=== PATIENT | male | born 1955 | race Caucasian/White ===

== ENCOUNTER 2019-08-08 09:01 | Outpatient (CLI) | payer MEDICARE, OTHER, SELFPAY ==
--- NOTE | 2019-08-08 09:57 | XR_ITS ---
WS: [id number] ABDOMEN 1 VIEW(S) HISTORY: KIDNEY STONE COMPARISON: 07/07/2019 Normal bowel gas pattern. No suspicious calcifications or masses. Osteopenia. Prior vertebroplasties at T11. Catheter projects over the LEFT abdomen. Extensive vascular calcifications. XR/XR KUB [id number] IMPRESSION: No renal or ureteral calcifications identified.
== END 2019-08-08 09:02 | disposition home or self-care (01) ==
LOC: RADWPI 09:07 → RAD 09:52
PROVIDERS: Family Provider Family Medicine; PCP Family Medicine; Visit Provider Urology
DX: N20.0 Calculus of kidney (principal)
CPT/HCPCS: 74018; 80053; 81001; 87077; 87086; 87186

== ENCOUNTER 2019-09-06 09:03 | Outpatient (CLI) | payer MEDICARE, OTHER, SELFPAY ==
--- NOTE | 2019-09-06 09:30 | US_ITS ---
WS: [id number] RENAL ULTRASOUND HISTORY: HYDROURETERONEPHROSIS COMPARISON: 07/07/2019 TECHNIQUE: 2-D and color Doppler imaging of the kidney submitted. Right kidney: 14.3 cm x 9.4 cm x 9.3 cm. Very minimal fluid distention of the renal pelvis measuring up to 2.1 cm. No gross hydronephrosis. No rmal size kidney. Left kidney: 13.0 cm x 6.0 cm x 5.9 cm. LEFT kidney is difficult to visualize but no hydronephrosis is evident. Aorta: Normal. Urinary Bladder: Nondistended urinary bladder. US/US renal BI* [id number] IMPRESSION: 1. Very minimal fluid distended RIGHT renal pelvis. Improved since 07/07/2019. 2. No left-sided hydronephrosis.
== END 2019-09-06 09:04 | disposition home or self-care (01) ==
LOC: RAD 09:07
PROVIDERS: PCP Family Medicine; Visit Provider Urology
DX: N13.30 Unspecified hydronephrosis (principal); N39.0 Urinary tract infection, site not specified
CPT/HCPCS: 76770; 80053; 81001

== ENCOUNTER → 2019-10-06 13:16 | Outpatient (BNVA) | payer MEDICARE, OTHER, SELFPAY | PROVIDERS: PCP Family Medicine; Visit Provider Urology | DX: N39.0 Urinary tract infection, site not specified (principal) | CPT/HCPCS: 80053; 81001 ==

== ENCOUNTER 2019-10-10 06:00 | Outpatient (RCR) | payer MEDICARE, OTHER, SELFPAY | END 2019-10-25 23:59 | disposition home or self-care (01) | LOC: WPT 06:00 | PROVIDERS: PCP Family Medicine; Referring Provider Nurse Practitioner Family; Visit Provider Nurse Practitioner Family | DX: R53.1 Weakness (principal) | CPT/HCPCS: 97110; 97112; 97116; 97163 ==

== ENCOUNTER 2019-10-26 06:00 | Outpatient (RCR) | payer MEDICARE, OTHER, SELFPAY | END 2019-11-25 23:59 | disposition home or self-care (01) | LOC: WPT 06:00 | PROVIDERS: PCP Family Medicine; Referring Provider Nurse Practitioner Family; Visit Provider Nurse Practitioner Family | DX: R53.1 Weakness (principal); I50.30 Unspecified diastolic (congestive) heart failure; E11.43 Type 2 diabetes mellitus with diabetic autonomic (poly)neuropathy; Z79.4 Long term (current) use of insulin | CPT/HCPCS: 97110; 97116; 97530 ==

== ENCOUNTER → 2019-11-09 16:27 | Outpatient (BNVA) | payer MEDICARE, OTHER, SELFPAY | PROVIDERS: PCP Family Medicine; Visit Provider Urology | DX: N39.0 Urinary tract infection, site not specified (principal); N13.30 Unspecified hydronephrosis | CPT/HCPCS: 80053; 81001 ==

== ENCOUNTER 2019-11-26 06:00 | Outpatient (RCR) | payer MEDICARE, OTHER, SELFPAY | END 2019-12-26 23:59 | disposition home or self-care (01) | LOC: WPT 06:00 | PROVIDERS: PCP Family Medicine; Referring Provider Nurse Practitioner Family; Visit Provider Nurse Practitioner Family | DX: R53.1 Weakness (principal) | CPT/HCPCS: 97110; 97116 ==

== ENCOUNTER → 2019-12-20 16:36 | Outpatient (BNVA) | payer MEDICARE, OTHER, SELFPAY | PROVIDERS: PCP Family Medicine; Visit Provider Urology | DX: N39.0 Urinary tract infection, site not specified (principal) | CPT/HCPCS: 80053; 81001; 87077; 87086; 87186 ==

== ENCOUNTER 2019-12-27 06:00 | Outpatient (RCR) | payer MEDICARE, OTHER, SELFPAY | END 2020-01-25 23:59 | disposition home or self-care (01) | LOC: WPT 06:00 | PROVIDERS: PCP Family Medicine; Referring Provider Nurse Practitioner Family; Visit Provider Nurse Practitioner Family | DX: R53.1 Weakness (principal) | CPT/HCPCS: 97110; 97116; 97530 ==

== ENCOUNTER → 2020-01-19 18:13 | Outpatient (BNVA) | payer MEDICARE, OTHER, SELFPAY | PROVIDERS: PCP Family Medicine; Visit Provider Nurse Practitioner Family | DX: N39.0 Urinary tract infection, site not specified (principal); R82.81 Pyuria | CPT/HCPCS: 80053; 81001; 87077; 87086; 87186 ==

== ENCOUNTER 2020-01-26 06:00 | Outpatient (RCR) | payer MEDICARE, OTHER, SELFPAY | END 2020-02-25 23:59 | disposition home or self-care (01) | LOC: WPT 06:00 | PROVIDERS: PCP Family Medicine; Referring Provider Nurse Practitioner Family; Visit Provider Nurse Practitioner Family | DX: R53.1 Weakness (principal); E11.43 Type 2 diabetes mellitus with diabetic autonomic (poly)neuropathy | CPT/HCPCS: 97110; 97116; L1902 ==

== ENCOUNTER → 2020-02-03 13:00 | Outpatient (BNVA) | payer MEDICARE, OTHER, SELFPAY | PROVIDERS: PCP Family Medicine; Visit Provider Urology | DX: N39.0 Urinary tract infection, site not specified (principal); R31.0 Gross hematuria; N13.30 Unspecified hydronephrosis; R82.81 Pyuria | CPT/HCPCS: 80053; 81001; 87077; 87086; 87186 ==

== ENCOUNTER → 2020-02-24 15:43 | Outpatient (BNVA) | payer MEDICARE, OTHER, SELFPAY | PROVIDERS: PCP Family Medicine; Visit Provider Urology | DX: R31.0 Gross hematuria (principal); R33.8 Other retention of urine; N30.20 Other chronic cystitis without hematuria; E66.01 Morbid (severe) obesity due to excess calories | CPT/HCPCS: 81003 ==

== ENCOUNTER 2020-02-26 06:00 | Outpatient (RCR) | payer MEDICARE, OTHER, SELFPAY | END 2020-03-26 23:59 | disposition home or self-care (01) | LOC: WPT 06:00 | PROVIDERS: PCP Family Medicine; Referring Provider Nurse Practitioner Family; Visit Provider Nurse Practitioner Family | DX: R53.1 Weakness (principal) | CPT/HCPCS: 97110; 97116; 97530 ==

== ENCOUNTER 2020-03-27 06:00 | Outpatient (RCR) | payer MEDICARE, OTHER, SELFPAY | END 2020-04-26 23:59 | disposition home or self-care (01) | LOC: WPT 06:00 | PROVIDERS: PCP Family Medicine; Referring Provider Nurse Practitioner Family; Visit Provider Nurse Practitioner Family | DX: R53.1 Weakness (principal) | CPT/HCPCS: 97110 ==

== ENCOUNTER 2020-05-07 06:00 | Outpatient (RCR) | payer MEDICARE, OTHER, SELFPAY | END 2020-05-27 23:59 | disposition home or self-care (01) | LOC: WPT 06:00 | PROVIDERS: PCP Family Medicine; Referring Provider Nurse Practitioner Family; Visit Provider Nurse Practitioner Family | DX: R53.1 Weakness (principal); Z91.81 History of falling | CPT/HCPCS: 97110; 97116; 97163 ==

== ENCOUNTER 2020-05-28 06:00 | Outpatient (RCR) | payer MEDICARE, OTHER, SELFPAY | END 2020-06-24 23:59 | disposition home or self-care (01) | LOC: WPT 06:00 | PROVIDERS: PCP Family Medicine; Referring Provider Nurse Practitioner Family; Visit Provider Nurse Practitioner Family | DX: R53.1 Weakness (principal); Z91.81 History of falling | CPT/HCPCS: 97110 ==

== ENCOUNTER 2020-06-25 06:00 | Outpatient (RCR) | payer MEDICARE, OTHER, SELFPAY | END 2020-07-25 23:59 | disposition home or self-care (01) | LOC: WPT 06:00 | PROVIDERS: PCP Family Medicine; Referring Provider Nurse Practitioner Family; Visit Provider Nurse Practitioner Family | DX: Z91.81 History of falling (principal); R53.1 Weakness | CPT/HCPCS: 97110; 97116; 97164; 97530 ==

== ENCOUNTER 2020-06-26 09:25 | Outpatient (CLI) | payer MEDICARE, OTHER, SELFPAY ==
--- NOTE | 2020-06-26 09:37 | USCV_ITS ---
Higinio Krishnamurthy Age: 64 Gender: M : 1955 Exam Date: 06/26/2020 09:47 Ordering Phys: Sadiq Moya XX Technologist: Iglesia Perea Exam Location: [facility] [place] Indication: LT SMITH PAIN HISTORY: Lower extremity pain. PROCEDURES: Venous duplex imaging was performed in only the left lower extremity. The following venous structures were evaluated: common femoral vein, profunda vein, proximal portion of the greater saphenous vein, superficial femoral vein, and the popliteal vein. FINDINGS: Normal 2-D Doppler and augmentation and compressibility throughout the lower extremity venous structures. Additional imaging through the proximal calf veins also reveals no thrombus. Limited evaluation of the greater saphenous vein is patent with no thrombus. CONCLUSIONS No DVT left lower extremity. Dr. Shantel Plaza DO (Electronically Signed) Final Date: 26 June 2020 10:22 S
== END 2020-06-26 09:26 | disposition home or self-care (01) ==
LOC: RAD 09:31
PROVIDERS: PCP Family Medicine; Visit Provider Nurse Practitioner Family
DX: M79.605 Pain in left leg (principal); M79.89 Other specified soft tissue disorders
CPT/HCPCS: 93971

== ENCOUNTER 2020-07-26 06:00 | Outpatient (RCR) | payer MEDICARE, OTHER, SELFPAY | END 2020-08-24 23:59 | disposition home or self-care (01) | LOC: WPT 06:00 | PROVIDERS: PCP Family Medicine; Referring Provider Nurse Practitioner Family; Visit Provider Nurse Practitioner Family | DX: R53.1 Weakness (principal); Z91.81 History of falling | CPT/HCPCS: 97110; 97116; 97530 ==

== ENCOUNTER 2020-08-25 06:00 | Outpatient (RCR) | payer MEDICARE, OTHER, SELFPAY | END 2020-09-24 23:59 | disposition home or self-care (01) | LOC: WPT 06:00 | PROVIDERS: PCP Family Medicine; Referring Provider Nurse Practitioner Family; Visit Provider Nurse Practitioner Family | DX: Z91.81 History of falling (principal); R53.1 Weakness | CPT/HCPCS: 97110; 97116 ==

== ENCOUNTER 2020-09-25 06:00 | Outpatient (RCR) | payer MEDICARE, OTHER, SELFPAY | END 2020-10-24 23:59 | disposition home or self-care (01) | LOC: WPT 06:00 | PROVIDERS: PCP Family Medicine; Referring Provider Nurse Practitioner Family; Visit Provider Nurse Practitioner Family | DX: Z91.81 History of falling (principal); R53.1 Weakness | CPT/HCPCS: 97110; 97116; 97530 ==

== ENCOUNTER 2020-10-25 06:00 | Outpatient (RCR) | payer MEDICARE, OTHER, SELFPAY | END 2020-11-24 23:59 | disposition home or self-care (01) | LOC: WPT 06:00 | PROVIDERS: PCP Family Medicine; Referring Provider Nurse Practitioner Family; Visit Provider Nurse Practitioner Family | DX: R53.1 Weakness (principal); Z91.81 History of falling | CPT/HCPCS: 97110 ==

== ENCOUNTER 2020-11-11 12:42 | Emergency (ER) | payer MEDICARE, OTHER, SELFPAY ==
[2020-11-11 12:49] VITALS: BP 105/26; PULSE 101; RESP 16; TEMP 36.9; O2SAT 100; BMI 43.2
--- NOTE | 2020-11-11 12:49 | XRR_ITS ---
PROCEDURE INFORMATION: Exam: XR Chest Exam date and time: 11/11/2020 12:49 PM Age: 65 years old Clinical indication: Cough TECHNIQUE: Imaging protocol: XR of the chest. Views: 1 view. COMPARISON: CR Chest 1 view [id number] 03/10/2019 11:58 AM FINDINGS: Lungs: There is a rounded opacity at the left base with central lucency. This could represent a hiatal hernia or cavitary lesion. Probable subsegmental atelectasis or scarring in the mid right chest. Pleural spaces: No pleural effusion.; No pneumothorax. Heart/Mediastinum: The cardiac silhouette is likely unchanged given low lung volumes and AP technique. There is a lucent structure along the right paratracheal stripe that is new from prior and may reflect a thick-walled bulla. No gross evidence of pneumomediastinum. Bones/joints: No gross fracture. XR/XR chest 1V portable [id number] IMPRESSION: 1. New lucent structure along the right paratracheal stripe that may reflect a thick-walled bulla. A loculated pneumothorax is a consideration. 2. There is a rounded opacity at the left base with central lucency. This could represent a hiatal hernia or consolidation with cavitary lesion. 3. Recommend CT chest with contrast to further assess.
--- NOTE | 2020-11-11 12:49 | ECG_ITS ---
[facility] Test Date: 2020-11-11 Pat Name: Higinio Krishnamurthy Department: Room: Gender: Male [employer] Expediter: : 1955 Requested By: Hayden Brooks Order Number: [id number] Chrissy MD: Edward Bass M.D. Measurements Intervals [place] Rate: 102 P: MN: QRS: -88 QRSD: 162 T: 19 QT: 426 QTc: 555 Interpretive Statements SINUS TACHYCARDIA WITH 2ND DEGREE AV BLOCK, MOBITZ TYPE II RIGHT BUNDLE BRANCH BLOCK [120+ ms QRS DURATION, UPRIGHT V1, 40+ ms S IN I/aVL/V4/V5/V6] LEFT ANTERIOR FASCICULAR BLOCK [QRS AXIS <= -45, QR IN I, RS IN II] POSSIBLE ANTERIOR MYOCARDIAL INFARCTION [30 ms Q WAVE IN V3/V4, OR R < 0.2 mV IN V4], PROBABLY OLD No previous ECG available for comparison Electronically Signed On 11-11-2020 20:16:12 CDT by Edward Bass M.D. [id number]
--- NOTE | 2020-11-11 12:49 | CTR_ITS ---
PROCEDURE INFORMATION: Exam: CT Head Without Contrast Exam date and time: 11/11/2020 12:49 PM Age: 65 years old Clinical indication: Headache. Double vision. TECHNIQUE: Imaging protocol: Computed tomography of the head without contrast. Radiation optimization: All CT scans at this facility use at least one of these dose optimization techniques: automated exposure control; mA and/or kV adjustment per patient size (includes targeted exams where dose is matched to clinical indication); or iterative reconstruction. COMPARISON: No relevant prior studies available. RADIATION DOSE METRICS: Total DLP (mGy-cm): 970.13 FINDINGS: Brain: No acute intracranial hemorrhage. No mass, mass effect or midline shift.; There is no evidence of acute large vessel infarct.; There is mild patchy subcortical and periventricular hypodensity, most commonly associated with small vessel ischemic disease of indeterminate age. Cerebral ventricles: The ventricles are prominent, compatible with moderate parenchymal volume loss. Paranasal sinuses: The visualized paranasal sinuses are clear. Mastoid air cells: No mastoid effusion. Orbital cavity: The visualized orbits are unremarkable. Bones/joints: No acute fracture is seen. Soft tissues: Probable dystrophic calcifications in the right frontal and right occipital region. CT/CT head wo con* [id number] IMPRESSION: 1. [id number] senescent changes as above. 2. No acute intracranial abnormality. Radiation Dose CTDIVOL = (mGy): DLP = 970.13 (mGy-cm)
--- NOTE | 2020-11-11 12:52 | ED_ITS ---
HPI - General Adult General: Chief complaint: Eye Problems Stated complaint: BLURRED VISION RIGHT EYE Time Seen by Provider: 11/11/20 12:43 History of Present Illness: HPI narrative: This patient is a 65-year-old male who presents to the emergency department complaint of double vision. Patient has a history of peritoneal dialysis related to chronic cystitis and chronic renal insufficiency. Patient did his peritoneal dialysis last night like normal. Woke up this morning has issue with double vision. 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 When patient is looking to the right vision is clear and not double. We will try to move to the left more laterally left the more double vision is present. Patient denies headache. Does have a history of hypertension. Patient states has been going through rehab to regain the ability to walk after severe sepsis illness several years ago. And states he is normally able to ambulate with a walker for short distance. Patient states today he kept wanting to run into things on the right because of the double vision. Patient states his strength is about normal for him which seems to be weaker on the left compared to the right. Patient states he woke up this way this morning and has been present since for the past 6 hours. We will do medical evaluation treat as needed Onset (ago): hour(s) Location: eyes Radiation: non-radiation Severity: moderate Associated symptoms: Deny chest pain, dyspnea, headache(s), nausea, rash, palpitations or vomiting Review of Systems General: Reports: 10 or more systems reviewed and unremarkable except in HPI and below Const: Denies: fever(s), chills, body aches or fatigue Eyes: Reports: blurry vision; Denies: change in vision ENMT: Denies: throat pain, hoarseness or mouth pain Card: Denies: chest pain, palpitations, irregular heart rhythm, edema, swelling of feet/ankles or lightheadedness Resp: Denies: dyspnea, productive cough, non-productive cough, wheezing or pain on inspiration GI: Denies: abdominal pain, nausea or vomiting : Denies: flank pain, dysuria, urinary frequency, urinary urgency or urinary hesitancy Musc: Denies: neck pain, back pain, extremity pain, extremity swelling, joint pain, joint swelling, joint redness, joint warmth or limited range of motion Skin/Breast: Denies: rash, pruritus, erythema or skin tenderness Neuro: Denies: headache(s), numbness in extremities or weakness in extremities Psych: Denies: anxiety or depression PFSH ED PFSH: Medical History Diabetes Gross hematuria History of sepsis Hydroureteronephrosis Kidney stones Peritoneal dialysis catheter in place Recurrent UTI Risk for falls Surgical History Hx of mitral valve replacement S/P tonsillectomy Family History Father Diabetes Other Cancer Social History Smoking and tobacco status: former smoker Alcohol intake: former Adopted: No Caregiver/support person: No Lives independently: No Household members: spouse Marital status: Current occupational status: disabled History of recent travel: No Current gender identity: Male Physical Exam Const: COMMON NORMALS: no acute distress, average body habitus, patient oriented x3, no limitations, healthy appearing, alert and well nourished ORIENTATION/CONSCIOUSNESS: Yes oriented to person, Yes oriented to place and Yes oriented to time HENMT: COMMON NORMALS: normocephalic, atraumatic, hearing grossly normal bilaterally, external ears normal, EAC's normal, TM's normal bilaterally, Normal external nose present, Normal nasal mucous membranes and turbinates present, moist oral mucous membranes, oropharynx normal, dentition normal and gingiva normal HEAD & SCALP: normocephalic and atraumatic NOSE: Normal external nose present and Normal nasal mucous membranes and turbinates present EXTERNAL EAR: Yes external ears normal EXTERNAL AUDITORY CANAL: EAC's normal TYMPANIC MEMBRANE: TM's normal bilaterally Eye: EOM: Yes EOM abnormal (Right is unable to converge to the midline. Appears to have inability to c) Neck/C-Spine: COMMON NORMALS: full ROM, no lymphadenopathy, supple, no meningeal signs, no JVD, Thyroid normal and No carotid bruits THYROID: Thyroid normal Chest: COMMONS NORMALS: normal inspection of the chest, normal palpation of entire chest wall, normal inspection of the breasts and normal palpation of the breasts Breast/axilla inspection: Yes normal inspection of the breasts BREAST/AXILLA PALPATION: Yes normal palpation of the breasts Resp: COMMON NORMALS: normal respiratory effort, No retractions, No use of accessory muscles, clear to auscultation bilaterally and percussion normal AUSCULTATION: clear to auscultation bilaterally PERCUSSION: percussion normal Cardio: COMMON NORMALS: no JVD, regular rate, regular rhythm, S1 normal heart sound present, S2 normal heart sound present, No gallops present (Cardio), No clicks present (Cardio), No murmurs present (Cardio), No rub (Cardio) and Peripheral pulses 2+ throughout RATE: regular rate RHYTHM: regular rhythm HEART SOUNDS: S1 normal heart sound present and S2 normal heart sound present PERIPHERAL PULSES: Peripheral pulses 2+ throughout GI: COMMON NORMALS: Normal to inspection, nondistended, normoactive bowel sounds present, Soft to palpation, non-tender, No hepatosplenomegaly present, no masses and no bruits PALPATION: Yes Soft to palpation and Yes No hepatosplenomegaly present : COMMON NORMALS: Yes no CVA tenderness BLADDER/KIDNEY EXAM: Yes no CVA tenderness Back/Pelvis: COMMON NORMALS: no CVA tenderness, thoracic and lumbar spine normal to inspection, no thoracic nor lumbar tenderness, thoraco-lumbar ROM normal and straight leg raise negative bilaterally Extremity: COMMON NORMALS: normal to inspection, full ROM, capillary refill normal, no joint enlargement, no clubbing, cyanosis or edema, no calf tenderness and no pedal edema Neuro: COMMON NORMALS: patient oriented x3 and moves all extremities SENSORIUM/ORIENTATION: Yes alert, Yes oriented to person, Yes oriented to place and Yes oriented to time MENINGEAL SIGNS: Yes no meningeal signs CRANIAL NERVES: Yes CN III (oculomotor) CN III laterality: right (Will not allow the eye to move to the past the midline. Toward convergence to the nose. Will not converge with the other. Does not accommodate.) CN III findings: unable to move eye upward and inward Course Reevaluation(s): Reevaluation #1: I did discuss at length with patient and family about findings and concerns for partial 3rd nerve palsy. Patient has significant medical history including. Sepsis and has been in rehab for the same diabetes hypertension. We did discuss at length different options. CT scan of the head negative for any acute findings. Patient wishes to be discharged home. We will patch the right eye. And patient is agreeable to follow-up with Dr. Izquierdo in the clinic as discussed. Patient will be discharged home with family per her request Time: 15:37 Consultations: Consultation #1: I did discuss at length with Dr. Izquierdo ophthalmology but the patient signs and symptoms consistent with her nerve palsy or at least a partial 3rd nerve palsy. They stated this is consistent with a person with diabetes and hypertension. They state that we could patch the right eye versus leave it alone. Either way it may resolve within a few weeks to months. Request the patient be discharged home if capable and follow-up in the clinic within 1 week. I did discuss at length with patient and family and they do request discharge home. Time: 15:36 Vital Signs: Vital signs: Vital Signs Temperature 98.4 F 11/11/20 12:49 Pulse Rate 101 H 11/11/20 12:49 Respiratory Rate 16 11/11/20 12:49 Blood Pressure 105/26 11/11/20 12:49 Pulse Oximetry 100 11/11/20 12:49 MDM - General Adult MDM Narrative: Medical decision making narrative: This patient is a 65-year-old male who presents to the emergency department complaint of double vision. Patient has a history of peritoneal dialysis related to chronic cystitis and chronic renal insufficiency. Patient did his peritoneal dialysis last night like normal. Woke up this morning has issue with double vision. 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 When patient is looking to the right vision is clear and not double. We will try to move to the left more laterally left the more double vision is present. Patient denies headache. Does have a history of hypertension. Patient states has been going through rehab to regain the ability to walk after severe sepsis illness several years ago. And states he is normally able to ambulate with a walker for short distance. Patient states today he kept wanting to run into things on the right because of the double vision. Patient states his strength is about normal for him which seems to be weaker on the left compared to the right. Patient states he woke up this way this morning and has been present since for the past 6 hours. I did discuss at length with patient and family about findings and concerns for partial 3rd nerve palsy. Patient has significant medical history including. Sepsis and has been in rehab for the same diabetes hypertension. We did discuss at length different options. CT scan of the head negative for any acute findings. Patient wishes to be discharged home. We will patch the right eye. And patient is agreeable to follow-up with Dr. Izquierdo in the clinic as discussed. Patient will be discharged home with family per her request I did discuss at length with Dr. Izquierdo ophthalmology but the patient signs and symptoms consistent with her nerve palsy or at least a partial 3rd nerve palsy. They stated this is consistent with a person with diabetes and hypertension. T hey state that we could patch the right eye versus leave it alone. Either way it may resolve within a few weeks to months. Request the patient be discharged home if capable and follow-up in the clinic within 1 week. I did discuss at length with patient and family and they do request discharge home. Lab Data: Labs: Lab Results 11/11/20 11/11/20 11/11/20 Range/Units 11:38 11:38 12:00 WBC 9.9 (4.0-10.0) 10^3/ uL RBC 3.27 L (4.1-5.3) 10^6/u L Hgb 10.3 L (11.7-16.6) g/dL Hct 33.3 L (42.0-52.0) % MCV 101.8 H (80-94) fL MCH 31.5 (28.0-34.0) pg MCHC 30.9 (30.0-36.0) g/dL RDW 16.4 H (12.1-15.1) % Plt Count 212 (130-400) 10^3/c mm MPV 9.0 (7.4-10.4) fL Neut % (Auto) 78.3 % Lymph % (Auto) 9.5 % [place] % (Auto) 7.1 % Eos % (Auto) 2.2 % Baso % (Auto) 0.7 % Neut # (Auto) 7.78 H (1.8-7.7) 10^3/u L Lymph # (Auto) 0.9 (0.8-4.8) 10^3/u L [place] # (Auto) 0.7 (0.2-0.9) 10^3/u L Eos # (Auto) 0.2 (0.0-0.8) 10^3/u L Baso # (Auto) 0.1 (0.0-0.1) 10^3/u L Nucleated RBC % (a uto) 0 % Nucleated RBCs # 0.0 /100WBC PT (12.1-14.9) SECO NDS INR (0.8-1.2) APTT (23.9-36.7) SECO NDS Sodium (136-145) mmol/L Potassium (3.5-5.1) mmol/L Chloride (98-107) mmol/L Carbon Dioxide (22-29) mmol/L Anion Gap (5-19) BUN (8-23) mg/dL Creatinine (0.7-1.2) mg/dL GFR Calculation (90-130) mL/min Glucose (65-115) mg/dL Calculated Osmolal ity (285-295) mOsm/k g Calcium (8.5-10.5) mg/dL Total Bilirubin (0.15-1.2) mg/dL AST (0-40) U/L ALT (0-41) U/L Alkaline Phosphata se (40-130) IU/L NT-Pro-B Natriuret Pep (0-125) pg/mL Total Protein (6.6-8.7) g/dL Albumin (3.5-5.2) g/dL Globulin (1.3-4.6) g/dL Urine Color Dark yellow (Yellow) Urine Appearance Cloudy (CLEAR) Urine pH 7 (5-7) Ur Specific Gravit y 1.015 (1.005-1.030) Urine Protein 2+ H (Negative) Urine Glucose (UA) Trace H (Normal) Urine Ketones Negative (Negative) Urine Blood 3+ H (Negative) Urine Nitrate Negative (Negative) Urine Bilirubin Neg (Negative) Urine Urobilinogen Norm (Negative) mg/dL Ur Leukocyte Joyce ase 2+ H (Negative) Urine RBC 0-4 H (0-2) /hpf Urine WBC 25-40 H (0-5) /hpf Ur Squamous Epith Cells None (0-5) /hpf Amorphous Sediment Not Reportable Urine Bacteria 1+ H (NONE) /hpf Urine Yeast 1+ H /hpf Urine Opiates Scre en Negative (Negative) ng/mL Ur Barbiturates Sc reen Negative (Negative) ng/mL Ur Phencyclidine S crn Negative (Negative) ng/mL Ur Amphetamines Sc reen Negative (Negative) ng/mL U Benzodiazepines Scrn Negative (Negative) ng/mL Urine Cocaine Scre en Negative (Negative) ng/mL U Marijuana (THC) Screen Negative (Negative) ng/mL 11/11/20 11/11/20 Range/Units 12:00 12:00 WBC (4.0-10.0) 10^3/ uL RBC (4.1-5.3) 10^6/u L Hgb (11.7-16.6) g/dL Hct (42.0-52.0) % MCV (80-94) fL MCH (28.0-34.0) pg MCHC (30.0-36.0) g/dL RDW (12.1-15.1) % Plt Count (130-400) 10^3/c mm MPV (7.4-10.4) fL Neut % (Auto) % Lymph % (Auto) % [place] % (Auto) % Eos % (Auto) % Baso % (Auto) % Neut # (Auto) (1.8-7.7) 10^3/u L Lymph # (Auto) (0.8-4.8) 10^3/u L [place] # (Auto) (0.2-0.9) 10^3/u L Eos # (Auto) (0.0-0.8) 10^3/u L Baso # (Auto) (0.0-0.1) 10^3/u L Nucleated RBC % (a uto) % Nucleated RBCs # /100WBC PT 14.40 (12.1-14.9) SECO NDS INR 1.08 (0.8-1.2) APTT 37.9 H (23.9-36.7) SECO NDS Sodium 133 L (136-145) mmol/L Potassium 3.8 (3.5-5.1) mmol/L Chloride 92 L (98-107) mmol/L Carbon Dioxide 27 (22-29) mmol/L Anion Gap 17.8 (5-19) BUN 97 H* (8-23) mg/dL Creatinine 10.2 H* (0.7-1.2) mg/dL GFR Calculation 5.2 L (90-130) mL/min Glucose 135 H (65-115) mg/dL Calculated Osmolal ity 308 H (285-295) mOsm/k g Calcium 8.6 (8.5-10.5) mg/dL Total Bilirubin 0.2 (0.15-1.2) mg/dL AST 18 (0-40) U/L ALT 27 (0-41) U/L Alkaline Phosphata se 176 H (40-130) IU/L NT-Pro-B Natriuret Pep 64592 H (0-125) pg/mL Total Protein 5.4 L (6.6-8.7) g/dL Albumin 2.9 L (3.5-5.2) g/dL Globulin 2.5 (1.3-4.6) g/dL Urine Color (Yellow) Urine Appearance (CLEAR) Urine pH (5-7) Ur Specific Gravit y (1.005-1.030) Urine Protein (Negative) Urine Glucose (UA) (Normal) Urine Ketones (Negative) Urine Blood (Negative) Urine Nitrate (Negative) Urine Bilirubin (Negative) Urine Urobilinogen (Negative) mg/dL Ur Leukocyte Joyce ase (Negative) Urine RBC (0-2) /hpf Urine WBC (0-5) /hpf Ur Squamous Epith Cells (0-5) /hpf Amorphous Sediment Urine Bacteria (NONE) /hpf Urine Yeast /hpf Urine Opiates Scre en (Negative) ng/mL Ur Barbiturates Sc reen (Negative) ng/mL Ur Phencyclidine S crn (Negative) ng/mL Ur Amphetamines Sc reen (Negative) ng/mL U Benzodiazepines Scrn (Negative) ng/mL Urine Cocaine Scre en (Negative) ng/mL U Marijuana (THC) Screen (Negative) ng/mL Imaging Data^: CT Head: Attestation: I personally reviewed and interpreted this imaging study as follows: Radiologist's impression: FINDINGS: Brain: No acute intracranial hemorrhage. No mass, mass effect or midline shift.; There is no evidence of acute large vessel infarct.; There is mild patchy subcortical and periventricular hypodensity, most commonly associated with small vessel ischemic disease of indeterminate age. Cerebral ventricles: The ventricles are prominent, compatible with moderate parenchymal volume loss. Paranasal sinuses: The visualized paranasal sinuses are clear. Mastoid air cells: No mastoid effusion. Orbital cavity: The visualized orbits are unremarkable. Bones/joints: No acute fracture is seen. Soft tissues: Probable dystrophic calcifications in the right frontal and right occipital region. CT/CT head wo con* [id number] IMPRESSION: 1. [id number] senescent changes as above. 2. No acute intracranial abnormality. CXR: Attestation: I personally reviewed and interpreted this imaging study as follows: Radiologist's impression: FINDINGS: Lungs: There is a rounded opacity at the left base with central lucency. This could represent a hiatal hernia or cavitary lesion. Probable subsegmental atelectasis or scarring in the mid right chest. Pleural spaces: No pleural effusion.; No pneumothorax. Heart/Mediastinum: The cardiac silhouette is likely unchanged given low lung volumes and AP technique. There is a lucent structure along the right paratracheal stripe that is new from prior and may reflect a thick-walled bulla. No gross evidence of pneumomediastinum. Bones/joints: No gross fracture. XR/XR chest 1V portable [id number] IMPRESSION: 1. New lucent structure along the right paratracheal stripe that may reflect a thick-walled bulla. A loculated pneumothorax is a consideration. 2. There is a rounded opacity at the left base with central lucency. This could represent a hiatal hernia or consolidation with cavitary lesion. 3. Recommend CT chest with contrast to further assess. CT Chest: Attestation: I personally reviewed and interpreted this imaging study as follows: Radiologist's impression: FINDINGS: Lungs: There are multiple foci of scarring and/or subsegmental atelectasis bilaterally. No keegan consolidation to suggest pneumonia. No pulmonary mass. Pleural spaces: Small left pleural effusion. No pneumothorax. Heart: There has been prior mitral valve replacement. Coronary arterial calcifications are noted. No pericardial effusion. Mediastinal space: No hiatal hernia. Aorta: No thoracic aortic aneurysm. Lymph nodes: A right pretracheal lymph node measures 1.1 x 1.5 cm. Small calcified mediastinal and bilateral hilar lymph nodes are seen. Intraperitoneal space: There is mild ascites. The spleen is enlarged measuring 15.8 cm. The liver is enlarged measuring at least 18.1 cm. A periportal lymph node measures 1.2 x 2.2 cm. Bones/joints: There has been prior kyphoplasty at T11. Old right rib fractures and possible thoracotomy. No acute fracture is identified. CT/CT chest wo con [id number] IMPRESSION: 1. No suspicious pulmonary mass or collection is identified. 2. Mild mediastinal lymphadenopathy. 3. Small left pleural effusion. 4. Hepatosplenomegaly with mild ascites and periportal lymphadenopathy. EKG Data^: EKG 1: Attestation: I personally reviewed and interpreted this EKG as follows: EKG interpretation date: 11/11/20 EKG interpretation time: 13:49 Prior EKG tracings: not available for review Computer generated interpretation: Chest X-Ray 11/11/20 12:49 IMPRESSION: 1. New lucent structure along the right paratracheal stripe that may reflect a thick-walled bulla. A loculated pneumothorax is a consideration. 2. There is a rounded opacity at the left base with central lucency. This could represent a hiatal hernia or consolidation with cavitary lesion. 3. Recommend CT chest with contrast to further assess. ADDENDUM: 11/11/[address] Brooks at 11/11/2020 2:[address] 11/11/20 12:49 IMPRESSION: 1. [id number] senescent changes as above. 2. No acute intracranial abnormality. Radiation Dose CTDIVOL = (mGy): DLP = 970.13 (mGy-cm) Chest CT 11/11/20 14:08 IMPRESSION: 1. No suspicious pulmonary mass or collection is identified. 2. Mild mediastinal lymphadenopathy. 3. Small left pleural effusion. 4. Hepatosplenomegaly with mild ascites and periportal lymphadenopathy. Radiation Dose CTDIVOL = (mGy): DLP = 995.33 (mGy-cm) Sinus tachycardia rate 102 right bundle branch block. Left anterior fascicular block. Abnormal EKG Discharge Plan Discharge Patient Disposition: Home Clinical Impression: Partial right third nerve palsy, Peritoneal dialysis catheter in place, Morbid obesity, Risk for falls, Recurrent UTI, Hydroureteronephrosis, CRF (chronic renal failure) Condition: Stable Prescriptions: New doxycycline monohydrate 50 mg capsule 50 mg PO BID Qty: 14 RF: 0 No Action lidocaine HCl 2 % jelly 1 applic INTRA-URET ONCE Qty: 1 RF: 0 digoxin 200 mcg (0.2 mg) capsule PO RF: 0 gabapentin 100 mg capsule 100 mg PO BID RF: 0 Lactobacillus acidophilus [Acidophilus] Capsule 10 mg PO DAILY RF: 0 allopurinol 300 mg tablet 300 mg PO DAILY RF: 0 gentamicin 0.1 % cream 1 applic TOPICAL DAILY RF: 0 Lantus Solostar U-100 Insulin 100 unit/mL (3 mL) insulin pen 30 unit SUBCUT DAILY RF: 0 timolol 0.25 % drops 1 drop ophthalmic (eye) DAILY RF: 0 travoprost [Travatan Z] 0.004 % drops ophthalmic (eye) RF: 0 metoprolol tartrate 50 mg tablet 50 mg PO BID RF: 0 insulin aspart U-100 [Novolog U-100 Insulin aspart] 100 unit/mL solution 20 unit SUBCUT DAILY RF: 0 pantoprazole 40 mg tablet,delayed release (DR/EC) 40 mg PO DAILY RF: 0 Lora-Stephanie Rx 1-60-300 mg-mg-mcg tablet 1 tab PO DAILY RF: 0 cholecalciferol (vitamin D3) 1,250 mcg (50,000 unit) tablet PO RF: 0 rosuvastatin 20 mg tablet 20 mg PO DAILY RF: 0 aspirin [Adult Low Dose Aspirin] 81 mg tablet,delayed release (DR/EC) 81 mg PO DAILY RF: 0 hydrocodone-acetaminophen 5-325 mg tablet 1 tab PO Q8H PRNRF: 0 tamsulosin 0.4 mg capsule 0.4 mg PO DAILY RF: 0 magnesium oxide 400 mg magnesium capsule 400 mg PO DAILY RF: 0 Discharge Orders: Discharge ED (Routine); Ordered 11/11/20 Ordered By: Hayden Brooks Referrals: Tim Vegas [Primary Care Provider] - Guillermo Izquierdo MD [Physician] - Discharge Diet: Advance as tolerated Discharge Activity: Resume usual activity Patient Instructions: Opioid Safety Activity Restrictions/Additional Instructions: Patch right eye as instructed. Continue all home medications. Call Dr. Izquierdo ophthalmology's office and schedule an appointment within 1 week. Coding Level of Care Code ED Anesthesiologist And Critical Care for [facility]ina Fwd Exam Comprehensive
[2020-11-11 13:17] LABS: Basophils # 0.1 10^3/uL (0.0-0.1); Basophils % 0.7 %; Eosinophils # 0.2 10^3/uL (0.0-0.8); Eosinophils % 2.2 %; Hematocrit 33.3 % (42.0-52.0); Hemoglobin 10.3 g/dL (11.7-16.6); Lymphocytes # 0.9 10^3/uL (0.8-4.8); Lymphocytes % 9.5 %; Mean Corpuscular HGB Conc 30.9 g/dL (30.0-36.0); Mean Corpuscular Hemoglobin 31.5 pg (28.0-34.0); Mean Corpuscular Volume 101.8 fL (80-94); Monocytes # 0.7 10^3/uL (0.2-0.9); Monocytes % 7.1 %; Neutrophils # 7.78 10^3/uL (1.8-7.7); Neutrophils % 78.3 %; Nucleated Red Blood Cells % 0 %; Platelet Count 212 10^3/cmm (130-400); Red Blood Count 3.27 10^6/uL (4.1-5.3); Red Cell Distribution Width 16.4 % (12.1-15.1); White Blood Count 9.9 10^3/uL (4.0-10.0)
[2020-11-11 13:30] LABS: INR 1.08 (0.8-1.2)
[2020-11-11 13:31] LABS: Partial Thromboplastin Time 37.9 SECONDS (23.9-36.7)
[2020-11-11 13:49] LABS: Alanine Aminotransferase 27 U/L (0-41); Albumin Level 2.9 g/dL (3.5-5.2); Alkaline Phosphatase 176 IU/L (40-130); Anion Gap 17.8 (5-19); Aspartate Amino Transferase 18 U/L (0-40); Calcium 8.6 mg/dL (8.5-10.5); Carbon Dioxide 27 mmol/L (22-29); Chloride 92 mmol/L (98-107); Globulin 2.5 g/dL (1.3-4.6); Glomerular Filtration Rate 5.2 mL/min (90-130); Glucose 135 mg/dL (65-115); NT Pro B Type Natriuretic Pept 14915 pg/mL (0-125); Osmolality Calculated 308 mOsm/kg (285-295); Potassium 3.8 mmol/L (3.5-5.1); Sodium 133 mmol/L (136-145); Total Bilirubin 0.2 mg/dL (0.15-1.2); Total Protein 5.4 g/dL (6.6-8.7)
[2020-11-11 13:57] LABS: Blood Urea Nitrogen 97 mg/dL (8-23)
--- NOTE | 2020-11-11 13:58 | PC.NURSE ---
notified DR. MIRANDA OF CRITICAL RESULTS OF BUN OF 97 AND CREATININE OF 10.4. NO NEW ORDERS RCVD.
[2020-11-11 14:06] LABS: Amphetamines Screen Urine Negative (Negative); Barbiturates Screen Urine Negative (Negative); Benzodiazepines Screen Urine Negative (Negative); Cocaine Screen Urine Negative (Negative); Opiate Screen Urine Negative (Negative); PCP Screen Urine Negative (Negative); THC Screen Urine Negative (Negative)
--- NOTE | 2020-11-11 14:08 | CTR_ITS ---
PROCEDURE INFORMATION: Exam: CT Chest Without Contrast; Diagnostic Exam date and time: 11/11/2020 2:08 PM Age: 65 years old Clinical indication: Prior mitral valve replacement. Abnormalities at the left lung base and adjacent to the paratracheal stripe in the right upper lobe. TECHNIQUE: Imaging protocol: Diagnostic computed tomography of the chest without contrast. Radiation optimization: All CT scans at this facility use at least one of these dose optimization techniques: automated exposure control; mA and/or kV adjustment per patient size (includes targeted exams where dose is matched to clinical indication); or iterative reconstruction. COMPARISON: CR (CHEST, ) 11/11/2020 1:03 PM RADIATION DOSE METRICS: Total DLP (mGy-cm): 995.33 FINDINGS: Lungs: There are multiple foci of scarring and/or subsegmental atelectasis bilaterally. No keegan consolidation to suggest pneumonia. No pulmonary mass. Pleural spaces: Small left pleural effusion. No pneumothorax. Heart: There has been prior mitral valve replacement. Coronary arterial calcifications are noted. No pericardial effusion. Mediastinal space: No hiatal hernia. Aorta: No thoracic aortic aneurysm. Lymph nodes: A right pretracheal lymph node measures 1.1 x 1.5 cm. Small calcified mediastinal and bilateral hilar lymph nodes are seen. Intraperitoneal space: There is mild ascites. The spleen is enlarged measuring 15.8 cm. The liver is enlarged measuring at least 18.1 cm. A periportal lymph node measures 1.2 x 2.2 cm. Bones/joints: There has been prior kyphoplasty at T11. Old right rib fractures and possible thoracotomy. No acute fracture is identified. CT/CT chest wo con [id number] IMPRESSION: 1. No suspicious pulmonary mass or collection is identified. 2. Mild mediastinal lymphadenopathy. 3. Small left pleural effusion. 4. Hepatosplenomegaly with mild ascites and periportal lymphadenopathy. Radiation Dose CTDIVOL = (mGy): DLP = 995.33 (mGy-cm)
[2020-11-11 14:25] LABS: Urine Appearance Cloudy (CLEAR); Urine Color Dark Yellow (Yellow)
[2020-11-11 14:26] LABS: Add Urine Microscopic? YES; Bacteria Urine 1+ /hpf; Bilirubin Urine Neg (Negative); Blood Urine 3+ (Negative); Glucose Urine UA Trace (Normal); Ketones Urine Negative (Negative); Leukocyte Esterase Urine 2+ (Negative); Nitrate Urine Negative (Negative); Protein Urine 2+ (Negative); RBC Urine 0-4 /hpf (0-2); Specific Gravity, Urine 1.015 (1.005-1.030); Urobilinogen Urine Norm (Negative); WBC Urine 25-40 /hpf (0-5); pH Urine 7 (5-7)
[2020-11-11 14:27] LABS: Add Urine Culture? Yes
[2020-11-11 16:00] VITALS: BP 110/57; PULSE 102; RESP 15; O2SAT 98
== END 2020-11-11 17:01 | disposition home or self-care (01) ==
PROVIDERS: Emergency Provider Emergency Medicine; PCP Family Medicine
DX: G58.8 Other specified mononeuropathies (principal); N39.0 Urinary tract infection, site not specified; N13.30 Unspecified hydronephrosis; E66.01 Morbid (severe) obesity due to excess calories; Z91.81 History of falling; E11.22 Type 2 diabetes mellitus with diabetic chronic kidney disease; N18.9 Chronic kidney disease, unspecified; Z99.2 Dependence on renal dialysis; Z87.440 Personal history of urinary (tract) infections; Z87.891 Personal history of nicotine dependence
CPT/HCPCS: 70450; 71045; 71250; 80053; 80306; 81001; 83880; 85025; 85610; 85730; 87086; 93005; 99284

== ENCOUNTER 2021-01-10 13:02 | Emergency (ER) | payer MEDICARE, OTHER, SELFPAY ==
[2021-01-10 13:06] VITALS: PULSE 88; RESP 16; TEMP 36.5; O2SAT 97; BMI 44.4
--- NOTE | 2021-01-10 13:06 | ED_ITS ---
HPI - Back Pain/Injury General: Chief Complaint: Back Pain/Injury Stated Complaint: BACK PAIN Time Seen by Provider: 01/10/21 13:04 History of Present Illness: HPI Narrative: Mr. Krishnamurthy is a 65-year-old gentleman with complex medical history including end-stage renal disease on peritoneal dialysis, morbid obesity, limited mobility, and chronic pain who presents to the emergency department due to back pain. He reports symptom onset was subacute after an event approximately 2 weeks ago. He tripped and fell down to his knees in a parking lot, at that time there was no head strike or loss of consciousness or other significant trauma. He was unable to get up and thus EMS was activated. They reportedly attempted to get him into his car seat however had difficulty and he thinks at that time that his back was smashed against a piece of plastic. He has had generalized aches and pains since that time which is improved with exception of right back and flank pain. This is sharp and at times burning in nature. The intensity is moderate to severe. He has tried home medications without significant relief. He denies infectious symptoms. No other significant changes in health, exacerbating, or alleviating factors. Review of Systems General: Reports: 10 or more systems reviewed and unremarkable except in HPI and below PFSH ED PFSH: Medical History Diabetes Gross hematuria History of sepsis Hydroureteronephrosis Kidney stones Peritoneal dialysis catheter in place Recurrent UTI Risk for falls Surgical History Hx of mitral valve replacement S/P tonsillectomy Family History Father Diabetes Other Cancer Social History Smoking and tobacco status: former smoker Alcohol intake: former Adopted: No Caregiver/support person: No Lives independently: No Household members: spouse Marital status: Current occupational status: disabled History of recent travel: No Current gender identity: Male Physical Exam Narrative: EXAM NARRATIVE: GENERAL/CONSTITUTIONAL -no acute distress, uncomfortable due to pain. Obese Eyes - PERRL, no conjunctival injection ENMT - Atraumatic external nose and ears. Moist mucous membranes NECK - supple. No posterior midline tenderness. CARDIOVASCULAR - regular rate and rhythm. Peripheral pulses 2+ and equal RESPIRATORY -clear to auscultation bilaterally. No retractions or accessory muscle use. ABDOMEN/GI -mildly tender generalized to palpation. No tenderness to percussion or evidence of peritonitis MSK - Extremities without obvious deformity. Tenderness palpation in the right posterior ribs. SKIN - Warm, Dry NEURO - alert and appropriately oriented. strength and sensation intact. Moves all extremities equally. PSYCH - Appropriate mood and affect Course ED course: - Patient was seen and evaluated by me at bedside - Patient placed on cardiac monitors, IV access obtained - Initial evaluation notable for uncomfortable due to pain. Given high degree of medical complexity including multiple advanced medical conditions further evaluation felt to be warranted. -Analgesia given - Labs notable for similar to baseline hematologic panel. Metabolic panel without emergent need for dialysis, abnormal findings as patient is on peritoneal dialysis. - Imaging notable for no acute intra-abdominal process to explain the patient's symptoms, CT L-spine recommended and demonstrates transverse process fractures. - Upon serial reexamination after treatment the patient was Somewhat improved - Based on patient history, evaluation, labs, and imaging as interpreted the most likely cause of the patient's condition is lumbar transverse process fractures. Case discussed with Dr. Coats with orthopedic spine, no emergent need for consult or operative intervention. - The results of ED evaluation were discussed with the patient including prescriptions and/or symptomatic cares (if applicable) including appropriate and responsible use, followup plan, and return precautions. The patient verbalized understanding and felt safe for discharge. - Patient discharged in satisfactory condition. Vital Signs: Vital signs: Vital Signs Temperature 97.7 F 01/10/21 13:06 Pulse Rate 83 01/10/21 15:52 Respiratory Rate 16 01/10/21 13:22 Blood Pressure 113/69 01/10/21 15:52 Pulse Oximetry 96 01/10/21 15:52 MDM - Back Pain/Injury Medical Records: Attestation: I reviewed the patient's medical records. Lab Data: Attestation: I reviewed the patient's lab results. Labs: Lab Results 01/10/21 01/10/21 Range/Units 13:41 13:41 WBC 8.2 (4.0-10.0) 10^3/ uL RBC 3.16 L (4.1-5.3) 10^6/u L Hgb 9.7 L (11.7-16.6) g/dL Hct 31.8 L (42.0-52.0) % MCV 100.6 H (80-94) fl MCH 30.7 (28.0-34.0) pg MCHC 30.5 (30.0-36.0) g/dL RDW 15.6 H (12.1-15.1) % Plt Count 187 (130-400) 10^3/c mm MPV 8.5 (7.4-10.4) fL Neut % (Auto) 73.9 % Lymph % (Auto) 12.9 % [place] % (Auto) 7.5 % Eos % (Auto) 4.1 % Baso % (Auto) 0.6 % Neut # (Auto) 6.07 (1.8-7.7) 10^3/u L Lymph # (Auto) 1.1 (0.8-4.8) 10^3/u L [place] # (Auto) 0.6 (0.2-0.9) 10^3/u L Eos # (Auto) 0.3 (0.0-0.8) 10^3/u L Baso # (Auto) 0.1 (0.0-0.1) 10^3/u L Nucleated RBC % (a uto) 0 % Nucleated RBCs # 0.0 /100WBC Sodium 136 (136-145) mmol/L Potassium 4.0 (3.5-5.1) mmol/L Chloride 93 L (98-107) mmol/L Carbon Dioxide 25 (22-29) mmol/L Anion Gap 22.0 H (5-19) BUN 86 H* (8-23) mg/dL Creatinine 11.1 H* (0.7-1.2) mg/dL GFR Calculation 4.7 L (90-130) mL/min Glucose 117 H (65-115) mg/dL Calculated Osmolal ity 309 H (285-295) mOsm/k g Calcium 8.3 L (8.5-10.5) mg/dL Total Bilirubin 0.2 (0.15-1.2) mg/dL AST 13 (0-40) U/L ALT 16 (0-41) U/L Alkaline Phosphata se 160 H (40-130) IU/L Total Protein 4.9 L (6.6-8.7) g/dL Albumin 2.7 L (3.5-5.2) g/dL Globulin 2.2 (1.3-4.6) g/dL Discharge Plan Discharge Patient Disposition: Home Clinical Impression: Multiple transverse process fractures, End-stage renal disease (ESRD) Condition: Stable Prescriptions: New methocarbamol 750 mg tablet 750 mg PO Q8H PRN (Reason: muscle pain) Qty: 30 RF: 0 oxycodone 5 mg tablet 5 mg PO Q6H PRN (Reason: pain) Qty: 10 RF: 0 No Action gabapentin 100 mg capsule See Rx Instructions .ROUTE .COMPLEX RF: 0 Lactobacillus acidophilus [Acidophilus] Capsule 10 mg PO DAILY RF: 0 allopurinol 300 mg tablet 300 mg PO DAILY RF: 0 Lantus Solostar U-100 Insulin 100 unit/mL (3 mL) insulin pen 50 unit SUBCUT BEDTIME RF: 0 timolol 0.25 % drops 1 drop ophthalmic (eye) DAILY RF: 0 travoprost [Travatan Z] 0.004 % drops 1 drp ophthalmic (eye) DAILY RF: 0 metoprolol tartrate 50 mg tablet 25 mg PO BID RF: 0 insulin aspart U-100 [Novolog U-100 Insulin aspart] 100 unit/mL solution See Rx Instructions .ROUTE .COMPLEX RF: 0 pantoprazole 40 mg tablet,delayed release (DR/EC) 40 mg PO DAILY RF: 0 Lora-Stephanie Rx 1-60-300 mg-mg-mcg tablet 1 tab PO DAILY RF: 0 rosuvastatin 20 mg tablet 20 mg PO BEDTIME RF: 0 aspirin [Adult Low Dose Aspirin] 81 mg tablet,delayed release (DR/EC) 81 mg PO DAILY RF: 0 tamsulosin 0.4 mg capsule 0.4 mg PO DAILY RF: 0 magnesium oxide 400 mg magnesium capsule 400 mg PO DAILY RF: 0 digoxin 250 mcg (0.25 mg) Tablet See Rx Instructions .ROUTE .COMPLEX RF: 0 Vitamin D2 25,000 unit Capsule 50,000 unit PO Q7D RF: 0 latanoprost 0.005 % drops 1 drp ophthalmic (eye) DAILY RF: 0 loperamide 2 mg Tablet 2 mg PO DAILY RF: 0 midodrine 5 mg tablet 5 mg PO TID RF: 0 furosemide 80 mg tablet 80 mg PO DAILY RF: 0 hydrocortisone 1 % cream See Rx Instructions .ROUTE .COMPLEX RF: 0 clotrimazole 1 % cream See Rx Instructions .ROUTE .COMPLEX RF: 0 escitalopram oxalate 20 mg tablet 20 mg PO BEDTIME RF: 0 Discharge Orders: Discharge ED (Routine); Ordered 01/10/21 Ordered By: Dudley Kim Referrals: Tim eVgas [Primary Care Provider] - Discharge Diet: Usual diet Discharge Activity: Resume usual activity Patient Instructions: End-Stage Kidney Disease (ED), Opioid Safety Activity Restrictions/Additional Instructions: Thank you for visiting the emergency department. You were seen and evaluated for back pain. You were found to have likely L1 as well as definite L2 and L3 transverse process fractures. Please follow-up with your primary care provider. Please return the emergency department for anything that you are concerned about and feel needs emergency department evaluation. Coding Level of Care Code ED Positive Printer Operator for Joaquina Zabala
[2021-01-10 13:22] VITALS: BP 106/66; PULSE 82; RESP 16; O2SAT 97
--- NOTE | 2021-01-10 13:41 | CT_ITS ---
WS: [id number] CT LUMBAR SPINE, noncontrast. HISTORY: fall, pain TECHNIQUE: Contiguous 2.5 mm axial imaging are performed. Sagittal and coronal reformats are submitte d and reviewed. All CT scans at [facility] use at least one of these dose optimization techni ques: automated exposure control; mA and/or kV adjustment per patient size (includes targeted exams w here dose is matched to clinical indication); or iterative reconstruction. IV contrast: None DLP: 2135.25 mGy.cm COMPARISON: None available. Quality of this examination is compromised by body habitus. Posterior lumbar alignment is normal. Very slight anterior wedging of L1 is similar to prior studies. Nondisplaced arteries are noted within the RIGHT transverse processes of L2 and L3. I also suspect t here may be nondisplaced fracture at L1. L1-2: No significant stenosis. Bilateral foraminal shallow disc protrusions, RIGHT greater than LEFT. L2-3: Mild disc bulging and facet arthritis. Mild LEFT foraminal narrowing. L3-4: Diffuse annular disc bulging and osteophytic ridging. Mild bilateral foraminal narrowing. L4-5: Diffuse disc bulging with severe facet joint arthritis. Mild central stenosis with moderate kai ateral foraminal stenosis. Indeterminate for central disc protrusion. L5-S1: Mild disc bulging and osteophytes. Mild bilateral foraminal narrowing. Mild atherosclerotic plaque within the aorta. Bilateral SI joint arthritis. CT/CT lumbar spine wo con* [id number] IMPRESSION: 1. Acute nondisplaced RIGHT L2 and L3 transverse process fractures. Also suspe ct there is probably an L1 transverse process fracture on the RIGHT. 2. No vertebral body fracture identified. 3. Severe facet joint arthritis at L4-5.
--- NOTE | 2021-01-10 13:41 | CT_ITS ---
WS: [id number] CT ABDOMEN AND PELVIS NONCONTRAST HISTORY: right flank pain TECHNIQUE: Imaging performed through the abdomen and pelvis. Coronal and sagittal reformats are submi tted. All CT scans at [facility] use at least one of these dose optimization techniques: auto mated exposure control; mA and/or kV adjustment per patient size (includes targeted exams where dose is matched to clinical indication); or iterative reconstruction. DLP: 2604.24 mGy.cm COMPARISON: 07/07/2019. Quality of this examination is suboptimal due to body habitus. Lower thorax: Very small layering LEFT pleural effusion. Dependent changes at the lung bases. Heart i s moderately enlarged. Calcification along the mitral annular valve plane. Liver: Normal size liver. There is a small amount of fluid adjacent to the liver capsule. Gallbladder: Normal gallbladder. No adjacent inflammation. Very similar in appearance to the prior CT of 07/07/2019. Pancreas: Normal size and attenuation. Normal pancreatic duct. No pancreatitis or mass. Spleen: Mildly enlarged spleen measuring 15 cm in length. Adrenal glands: Normal. No mass. Right kidney: Marked perinephric stranding. There is very slight dilatation of the renal pelvis and R IGHT ureter. Very similar in appearance to the prior study. No obstructing calcification or nodules i dentified. Left kidney: Marked perinephric stranding. Nonobstructing calcifications within the renal pelvis. Mil d stranding around the ureter. Aorta: Mild atherosclerosis abdominal aorta with no aneurysm. No free fluid, intraperitoneal air or significant lymphadenopathy. GI tract: No obstruction. The appendix is not definite identified. Abdominal wall: Fat-containing umbilical hernia. There is mild anasarca in the soft tissues. Pelvis: Nondistended urinary bladder. Very mild rectal wall thickening of uncertain etiology. There i s increase fluid along the RIGHT inguinal canal. Inguinal canals are both patent and contain only fat and fluid. There is diffuse soft tissue thickening of the scrotum and perineum. Osseous structures: T11 vertebroplasty. Fractures within the transverse processes of L2 and L3 were b félix identified on the dedicated CT evaluation. CT/CT abdomen pelvis wo con [id number] IMPRESSION: 1. Quality of this examination is significantly compromised by body habitus. 2. Small LEFT pleural effusion and a small amount of ascites. 3. Mild splenomegaly. 4. Significant perinephric stranding around each kidney. 5. Vertebral bodies and transverse process fractures were better seen on the d edicated CT of the lumbar spine. 6. Large amount of fluid along the RIGHT inguinal canal. There is also extensi ve scrotal and perineal edema. 7. Significant calcification within the arteries.
[2021-01-10 13:49] LABS: Basophils # 0.1 10^3/uL (0.0-0.1); Basophils % 0.6 %; Eosinophils # 0.3 10^3/uL (0.0-0.8); Eosinophils % 4.1 %; Hematocrit 31.8 % (42.0-52.0); Hemoglobin 9.7 g/dL (11.7-16.6); Lymphocytes # 1.1 10^3/uL (0.8-4.8); Lymphocytes % 12.9 %; Mean Corpuscular HGB Conc 30.5 g/dL (30.0-36.0); Mean Corpuscular Hemoglobin 30.7 pg (28.0-34.0); Mean Corpuscular Volume 100.6 fl (80-94); Mean Platelet Volume 8.5 fL (7.4-10.4); Monocytes # 0.6 10^3/uL (0.2-0.9); Monocytes % 7.5 %; Neutrophils # 6.07 10^3/uL (1.8-7.7); Neutrophils % 73.9 %; Nucleated Red Blood Cells % 0 %; Platelet Count 187 10^3/cmm (130-400); Red Blood Count 3.16 10^6/uL (4.1-5.3); Red Cell Distribution Width 15.6 % (12.1-15.1); White Blood Count 8.2 10^3/uL (4.0-10.0)
[2021-01-10 14:10] LABS: Alanine Aminotransferase 16 U/L (0-41); Albumin Level 2.7 g/dL (3.5-5.2); Alkaline Phosphatase 160 IU/L (40-130); Aspartate Amino Transferase 13 U/L (0-40); Calcium 8.3 mg/dL (8.5-10.5); Carbon Dioxide 25 mmol/L (22-29); Chloride 93 mmol/L (98-107); Globulin 2.2 g/dL (1.3-4.6); Glomerular Filtration Rate 4.7 mL/min (90-130); Glucose 117 mg/dL (65-115); Osmolality Calculated 309 mOsm/kg (285-295); Sodium 136 mmol/L (136-145); Total Bilirubin 0.2 mg/dL (0.15-1.2); Total Protein 4.9 g/dL (6.6-8.7)
[2021-01-10 14:47] VITALS: BP 109/54; PULSE 82; O2SAT 97
[2021-01-10 14:53] LABS: Blood Urea Nitrogen 86 mg/dL (8-23)
[2021-01-10 15:52] VITALS: BP 113/69; PULSE 83; O2SAT 96
== END 2021-01-10 15:56 | disposition home or self-care (01) ==
PROVIDERS: Emergency Provider Emergency Medicine; PCP Family Medicine
DX: S32.028A Other fracture of second lumbar vertebra, initial encounter for closed fracture (principal); S32.038A Other fracture of third lumbar vertebra, initial encounter for closed fracture; E11.22 Type 2 diabetes mellitus with diabetic chronic kidney disease; N18.6 End stage renal disease; Z99.2 Dependence on renal dialysis; Z87.891 Personal history of nicotine dependence; Z79.4 Long term (current) use of insulin; Z79.82 Long term (current) use of aspirin; W01.0XXA Fall on same level from slipping, tripping and stumbling without subsequent striking against object, initial encounter
CPT/HCPCS: 72131; 74176; 80053; 85025; 99283

== ENCOUNTER 2021-01-25 18:04 | Outpatient (CLI) | payer MEDICARE, OTHER, SELFPAY ==
[2021-01-25 19:23] LABS: Alanine Aminotransferase 22 U/L (0-41); Albumin Level 2.3 g/dL (3.5-5.2); Alkaline Phosphatase 143 IU/L (40-130); Anion Gap 21.9 (5-19); Aspartate Amino Transferase 19 U/L (0-40); Carbon Dioxide 24 mmol/L (22-29); Chloride 92 mmol/L (98-107); Glomerular Filtration Rate 6.1 mL/min (90-130); Glucose 83 mg/dL (65-115); Osmolality Calculated 302 mOsm/kg (285-295); Potassium 3.9 mmol/L (3.5-5.1); Sodium 134 mmol/L (136-145); Total Bilirubin 0.2 mg/dL (0.15-1.2); Total Protein 4.3 g/dL (6.6-8.7)
[2021-01-25 19:37] LABS: Blood Urea Nitrogen 81 mg/dL (8-23)
== END 2021-01-25 18:05 | disposition home or self-care (01) ==
LOC: LAB 18:11
PROVIDERS: PCP Family Medicine; Visit Provider Family Medicine
DX: Z01.89 Encounter for other specified special examinations (principal)
CPT/HCPCS: 80053

== ENCOUNTER 2021-07-26 06:00 | Outpatient (RCR) | payer MEDICARE, OTHER, SELFPAY | END 2021-08-24 23:59 | disposition home or self-care (01) | LOC: WPT 06:00 | PROVIDERS: PCP Family Medicine; Referring Provider Family Medicine; Visit Provider Family Medicine | DX: R53.1 Weakness (principal); Z74.09 Other reduced mobility; Z74.1 Need for assistance with personal care | CPT/HCPCS: 97110; 97161; 97530 ==

== ENCOUNTER 2021-08-25 | Outpatient (RCR) | payer MEDICARE, OTHER, SELFPAY | END 2021-09-24 23:59 | disposition home or self-care (01) | LOC: WPT | PROVIDERS: PCP Family Medicine; Referring Provider Family Medicine; Visit Provider Family Medicine | DX: R53.1 Weakness (principal); Z74.1 Need for assistance with personal care; Z74.09 Other reduced mobility | CPT/HCPCS: 97110; 97112; 97530 ==

== ENCOUNTER 2021-09-25 06:00 | Outpatient (RCR) | payer MEDICARE, OTHER, SELFPAY | END 2021-10-24 23:59 | disposition home or self-care (01) | LOC: WPT 06:00 | PROVIDERS: PCP Family Medicine; Referring Provider Family Medicine; Visit Provider Family Medicine | DX: R53.1 Weakness (principal); Z91.81 History of falling | CPT/HCPCS: 97110; 97164; 97530 ==

== ENCOUNTER 2021-10-25 06:00 | Outpatient (RCR) | payer MEDICARE, OTHER, SELFPAY | END 2021-11-24 23:59 | disposition home or self-care (01) | LOC: WPT 06:00 | PROVIDERS: PCP Family Medicine; Referring Provider Family Medicine; Visit Provider Family Medicine | DX: R53.1 Weakness (principal); Z74.1 Need for assistance with personal care; Z74.09 Other reduced mobility | CPT/HCPCS: 97110; 97530 ==

== ENCOUNTER 2021-11-25 06:00 | Outpatient (RCR) | payer MEDICARE, OTHER, SELFPAY | END 2021-12-25 23:59 | disposition home or self-care (01) | LOC: WPT 06:00 | PROVIDERS: PCP Family Medicine; Referring Provider Family Medicine; Visit Provider Family Medicine | DX: R53.1 Weakness (principal); I50.30 Unspecified diastolic (congestive) heart failure; E11.43 Type 2 diabetes mellitus with diabetic autonomic (poly)neuropathy; Z79.4 Long term (current) use of insulin | CPT/HCPCS: 97110; 97112; 97530 ==

== ENCOUNTER 2022-01-02 | Outpatient (RCR) | payer MEDICARE, OTHER, SELFPAY | END 2022-01-24 23:59 | disposition home or self-care (01) | LOC: WPT | PROVIDERS: PCP Family Medicine; Referring Provider Family Medicine; Visit Provider Family Medicine | DX: R53.1 Weakness (principal); Z74.09 Other reduced mobility | CPT/HCPCS: 97110; 97530 ==

== ENCOUNTER 2022-01-25 06:00 | Outpatient (RCR) | payer MEDICARE, OTHER, SELFPAY | END 2022-02-24 23:59 | disposition home or self-care (01) | LOC: WPT 06:00 | PROVIDERS: PCP Family Medicine; Visit Provider Family Medicine | DX: R53.1 Weakness (principal); Z74.09 Other reduced mobility | CPT/HCPCS: 97110; 97530 ==

== ENCOUNTER 2022-02-18 14:20 | Emergency (ER) | payer MEDICARE, OTHER, SELFPAY ==
[2022-02-18] VITALS (15 sets, daily range): BP systolic 93–133; BP diastolic 53–73; PULSE 79–104; RESP 17–29; TEMP 36.6; O2SAT 91–96; BMI 50.2
[2022-02-18 15:15] LABS: Basophils # 0.1 10^3/uL (0.0-0.1); Basophils % 0.3 %; Eosinophils # 0.1 10^3/uL (0.0-0.8); Eosinophils % 0.4 %; Hematocrit 31.6 % (42.0-52.0); Lymphocytes # 0.7 10^3/uL (0.8-4.8); Lymphocytes % 3.3 %; Mean Corpuscular HGB Conc 31.6 g/dL (30.0-36.0); Mean Corpuscular Hemoglobin 32.8 pg (28.0-34.0); Mean Corpuscular Volume 103.6 fl (80-94); Mean Platelet Volume 9.2 fL (7.4-10.4); Monocytes # 1.4 10^3/uL (0.2-0.9); Monocytes % 6.8 %; Neutrophils # 17.79 10^3/uL (1.8-7.7); Neutrophils % 87.4 %; Nucleated Red Blood Cells % 0 %; Platelet Count 177 10^3/cmm (130-400); Red Blood Count 3.05 10^6/uL (4.1-5.3); Red Cell Distribution Width 17.5 % (12.1-15.1); White Blood Count 20.4 10^3/uL (4.0-10.0)
--- NOTE | 2022-02-18 15:27 | XR_ITS ---
WS: [id number] Exam: XR chest 1V portable [id number] Date/Time of Exam: 02/18/2022 3:36 PM Reason For Exam: dyspnea/cough Comparison 11/11/2020. The lungs are fully expanded. Chronic pulmonary parenchymal changes in the right upper lobe. Cardiome diastinal silhouette is unremarkable for technique. No pleural effusions. Increased pulmonary vascula rity essentially unchanged. Bony structures are intact. XR/XR chest 1V portable [id number] IMPRESSION: 1. Chronic pulmonary parenchymal changes in the right upper lobe. Increased pul monary vascularity also appears chronic. 2. No acute process is suspected.
--- NOTE | 2022-02-18 15:27 | CTR_ITS ---
PROCEDURE INFORMATION: Exam: CT Abdomen And Pelvis Without Contrast Exam date and time: 02/18/2022 4:15 PM Age: 66 years old Clinical indication: Pain; Other: Dark urine; Other: Flank-- bilateral; Prior surgery; Surgery date: 6+ months; Additional info: Flank pain bilaterally, HX of ureteral stones, patient is on peritoneal dialysis TECHNIQUE: Imaging protocol: Computed tomography of the abdomen and pelvis without contrast. Radiation optimization: All CT scans at this facility use at least one of these dose optimization techniques: automated exposure control; mA and/or kV adjustment per patient size (includes targeted exams where dose is matched to clinical indication); or iterative reconstruction. COMPARISON: CT abdomen pelvis wo con [id number] 01/10/2021 1:48 PM RADIATION DOSE METRICS: Total DLP (mGy-cm): 1909.23 FINDINGS: Tubes, catheters and devices: Percutaneous dialysis catheter coiled in the pelvis with a small amount of adjacent fluid. Lungs: Patchy bibasilar atelectasis versus minimal infiltrate. Pleural spaces: Small bilateral pleural effusions. Heart: Minimal coronary artery atherosclerotic calcifications. Liver: Normal. No mass. Gallbladder and bile ducts: Cholelithiasis with prominence of the gallbladder, ultrasound could further evaluate this. Pancreas: Normal. No ductal dilation. Spleen: Normal. No splenomegaly. Adrenal glands: Normal. No mass. Kidneys and ureters: Several left kidney nonobstructive calyceal stones measuring up to 8.1 mm, nonspecific. Left kidney medullary nephrocalcinosis, typically a chronic benign finding. Stomach and bowel: Constipation. Appendix: No evidence of appendicitis. Intraperitoneal space: Unremarkable. No free air. No significant fluid collection. Vasculature: Unremarkable. No abdominal aortic aneurysm. Lymph nodes: Unremarkable. No enlarged lymph nodes. Urinary bladder: Unremarkable as visualized. Reproductive: Unremarkable as visualized. Bones/joints: T11 vertebroplasty changes. Soft tissues: Small bilateral fat containing inguinal hernias with a small amount of fluid in the right inguinal canal. Subcutaneous edema about the abdomen and pelvis. CT/CT kidney stone [id number] IMPRESSION: 1. Several left kidney nonobstructive calyceal stones measuring up to 8.1 mm, nonspecific 2. Left kidney medullary nephrocalcinosis, typically a chronic benign finding. 3. Percutaneous dialysis catheter coiled in the pelvis with a small amount of adjacent fluid. 4. Constipation. 5. T11 vertebroplasty changes. 6. Minimal coronary artery atherosclerotic calcifications. 7. Patchy bibasilar atelectasis versus minimal infiltrate. 8. Small bilateral pleural effusions. 9. Cholelithiasis with prominence of the gallbladder, ultrasound could further evaluate this. 10. Small bilateral fat containing inguinal hernias with a small amount of fluid in the right inguinal canal. 11. Subcutaneous edema about the abdomen and pelvis.
--- NOTE | 2022-02-18 15:28 | ECG_ITS ---
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 Measurements Intervals [place] Rate: 91 P: [place]: QRS: 226 QRSD: 181 T: 19 QT: 423 QTc: 521 Interpretive Statements ATRIAL FLUTTER/TACHYCARDIA RIGHT AXIS DEVIATION [QRS AXIS > 100] RIGHT BUNDLE BRANCH BLOCK [120+ ms QRS DURATION, UPRIGHT V1, 40+ ms S IN I/aVL/V4/V5/V6] POSSIBLE ANTERIOR MYOCARDIAL INFARCTION , PROBABLY OLD [30 ms Q WAVE IN V3/V4, OR R < 0.2 mV IN V4] Compared to ECG 11/11/2020 13:49:07 Right-axis deviation now present Sinus tachycardia no longer present Left anterior fascicular block no longer present Myocardial infarct finding still present Electronically Signed On 02-19-2022 0:20:37 CDT by Edward Bass M.D. [email or web address]
--- NOTE | 2022-02-18 15:40 | ED_ITS ---
Documented by User: Mukul Schmitt DO 02/28/22 07:41 HPI - General Adult General: Chief complaint: General Medical Stated complaint: Dr. Vegas sent for fluid on heart Time Seen by Provider: 02/18/22 15:25 Source: patient Mode of arrival: ambulatory History of Present Illness: 66-year-old male who presents to the emergency room because of fluid retention. Patient has a history of congestive heart failure end-stage renal disease on peritoneal dialysis as well as nephrolithiasis. He has had continued urine output although it has become discolored brown recently he has not had any fever he has been putting in his usual amount of peritoneal fluid removed is draining appropriately he last in used fluid yesterday on his usual schedule. He has noticed increased fluid retention the last couple of days. Onset (ago): day(s) Severity: mild Pain Consistency: constant Relieving factors: none Exacerbating factors: none Associated symptoms: Reports dyspnea and malaise; Deny chest pain, confusion, cough, diaphoresis, decreased appetite, fevers/chills, headache(s), nausea, rash, palpitations, seizures, short of breath, syncope, vomiting or weakness Treatments prior to arrival: none Review of Systems Const: Reports: fatigue and malaise; Denies: fever(s), chills or diaphoresis ENMT: Denies: throat pain, ear or mastoid pain, nasal discharge or nasal congestion Card: Reports: edema and swelling of feet/ankles; Denies: chest pain, palpitations or syncope Resp: Reports: dyspnea; Denies: productive cough or non-productive cough GI: Reports: abdominal pain; Denies: nausea or vomiting : Reports: difficulty urinating; Denies: flank pain, dysuria, urinary frequency or urinary urgency Skin/Breast: Denies: rash Neuro: Denies: headache(s) or confusion PFSH ED PFSH: Medical History Diabetes Gross hematuria History of sepsis Hydroureteronephrosis Kidney stones Peritoneal dialysis catheter in place Recurrent UTI Risk for falls Surgical History Hx of mitral valve replacement S/P tonsillectomy Family History Father Diabetes Other Cancer Social History Smoking and tobacco status: former smoker Alcohol intake: former Adopted: No Caregiver/support person: No Lives independently: No Household members: spouse Marital status: Current occupational status: disabled History of recent travel: No Current gender identity: Male Physical Exam Const: GENERAL APPEARANCE: cooperative and comfortable ORIENTATION/CONSCIOUSNESS: Yes awake HENMT: COMMON NORMALS: normocephalic, atraumatic and hearing grossly normal bilaterally HEAD & SCALP: normocephalic and atraumatic Resp: COMMON NORMALS: normal respiratory effort, No retractions, No use of accessory muscles and clear to auscultation bilaterally AUSCULTATION: clear to auscultation bilaterally Cardio: COMMON NORMALS: regular rate, regular rhythm and No murmurs present (Cardio) RATE: regular rate RHYTHM: regular rhythm GI: COMMON NORMALS: Soft to palpation and No hepatosplenomegaly present INSPECTION: Yes abdominal distension AUSCULTATION: Yes normoactive bowel sounds PALPATION: Yes Soft to palpation, No Tenderness to palpation present (GI), No Guarding due to palpation present (GI) and Yes No hepatosplenomegaly present Extremity: COMMON NORMALS: normal to inspection, capillary refill normal and no calf tenderness GENERAL: Yes edema (lower extremity swelling) Skin: COMMON NORMALS: no rashes or lesions noted GENERAL SKIN EXAM: no rashes or lesions noted Course Vital Signs: Vital signs: Vital Signs Temperature 98 F 02/18/22 14:39 Pulse Rate 97 02/18/22 23:36 Respiratory Rate 18 02/18/22 23:36 Blood Pressure 94/59 02/18/22 23:36 Pulse Oximetry 91 02/18/22 23:36 Oxygen Delivery Me thod 02/18/22 21:30 MDM - General Adult Medical Decision Making Care signed out to Dr. Merrill at change of shift. See final notes for diagnosis and disposition. Anticipate admission labs pending for final decision as to disposition Patient presents here with end-stage renal disease on peritoneal dialysis with fluid overload along with elevated troponin concerning for NSTEMI he is chest pain-free here. He also has acute cystitis with elevated leukocytosis. I originally did inform patient we had to transfer him due to nephrology capability at that time he decided to sign out AMA I was able to speak to him and his and convince them to stay. We have called multiple facilities [place] and [place] both were on divert I did find him a bed and acceptance at [facility] [place]. At this time patient again he changed his mind and wanted to go I had a long discussion with him and his again and informed them that he could go into heart failure have a heart attack or have worsening infection and he could even be critical he understands this has medical decision made capacity states that he is going to follow-up with his online tutor continue to take his antibiotics for his UTI that I will prescribe we will do his peritoneal dialysis at home. I informed him if he worsens or if he changes his mind about needing to be admitted he is to return immediately he understands this. Lab Data : 02/18/22 15:00 02/18/22 15:00 Radiology Impressions Abdomen/Pelvis CT 02/18/22 15:27 IMPRESSION: 1. Several left kidney nonobstructive calyceal stones measuring up to 8.1 mm, nonspecific 2. Left kidney medullary nephrocalcinosis, typically a chronic benign finding. 3. Percutaneous dialysis catheter coiled in the pelvis with a small amount of adjacent fluid. 4. Constipation. 5. T11 vertebroplasty changes. 6. Minimal coronary artery atherosclerotic calcifications. 7. Patchy bibasilar atelectasis versus minimal infiltrate. 8. Small bilateral pleural effusions. 9. Cholelithiasis with prominence of the gallbladder, ultrasound could further evaluate this. 10. Small bilateral fat containing inguinal hernias with a small amount of fluid in the right inguinal canal. 11. Subcutaneous edema about the abdomen and pelvis. Chest X-Ray 02/18/22 15:27 IMPRESSION: 1. Chronic pulmonary parenchymal changes in the right upper lobe. Increased pulmonary vascularity also appears chronic. 2. No acute process is suspected. Laboratory Results WBC 20.4 10^3/uL (4.0-10.0) H 02/18/22 15:00 RBC 3.05 10^6/uL (4.1-5.3) L 02/18/22 15:00 Hgb 10.0 g/dL (11.7-16.6) L 02/18/22 15:00 Hct 31.6 % (42.0-52.0) L 02/18/22 15:00 MCV 103.6 fl (80-94) H 02/18/22 15:00 MCH 32.8 pg (28.0-34.0) 02/18/22 15:00 MCHC 31.6 g/dL (30.0-36.0) 02/18/22 15:00 RDW 17.5 % (12.1-15.1) H 02/18/22 15:00 Plt Count 177 10^3/cmm (130-400) 02/18/22 15:00 MPV 9.2 fL (7.4-10.4) 02/18/22 15:00 Neut % (Auto) 87.4 % 02/18/22 15:00 Lymph % (Auto) 3.3 % 02/18/22 15:00 [place] % (Auto) 6.8 % 02/18/22 15:00 Eos % (Auto) 0.4 % 02/18/22 15:00 Baso % (Auto) 0.3 % 02/18/22 15:00 Neut # (Auto) 17.79 10^3/uL (1.8-7.7) H 02/18/22 15:00 Lymph # (Auto) 0.7 10^3/uL (0.8-4.8) L 02/18/22 15:00 [place] # (Auto) 1.4 10^3/uL (0.2-0.9) H 02/18/22 15:00 Eos # (Auto) 0.1 10^3/uL (0.0-0.8) 02/18/22 15:00 Baso # (Auto) 0.1 10^3/uL (0.0-0.1) 02/18/22 15:00 Nucleated RBC % (auto) 0 % 02/18/22 15:00 Nucleated RBCs # 0.0 /100WBC 02/18/22 15:00 Sodium 137 mmol/L (136-145) 02/18/22 15:00 Potassium 3.8 mmol/L (3.5-5.1) 02/18/22 15:00 Chloride 90 mmol/L (98-107) L 02/18/22 15:00 Carbon Dioxide 25 mmol/L (22-29) 02/18/22 15:00 Anion Gap 25.8 (5-19) H 02/18/22 15:00 BUN 96 mg/dL (8-23) H* 02/18/22 15:00 Creatinine 11.2 mg/dL (0.7-1.2) H* 02/18/22 15:00 GFR Calculation 4.6 mL/min (90-130) L 02/18/22 15:00 Glucose 150 mg/dL (65-115) H 02/18/22 15:00 Calculated Osmolality 317 mOsm/kg (285-295) H 02/18/22 15:00 Lactic Acid 1.4 mmol/L (0.5-2.2) 02/18/22 18:47 Calcium 9.0 mg/dL (8.5-10.5) 02/18/22 15:00 Total Bilirubin 0.4 mg/dL (0.15-1.2) 02/18/22 15:00 AST 15 U/L (0-40) 02/18/22 15:00 ALT 23 U/L (0-41) 02/18/22 15:00 Alkaline Phosphatase 194 U/L (40-130) H 02/18/22 15:00 Troponin T Baseline 498 ng/L (0-15) H* 02/18/22 16:00 Troponin T 120 Minute 526.7 ng/L (0-15) H 02/18/22 18:47 Delta Troponin T 28.7 ABS# (0-10) H* 02/18/22 18:47 Troponin T Hi Sens 6Hr 538.3 ng/L (0-15) H 02/18/22 21:32 Troponin T Hi Sens 6Hr Delta 40.3 ng/L (0-12) H* 02/18/22 21:32 Total Protein 4.7 g/dL (6.6-8.7) L 02/18/22 15:00 Albumin 2.9 g/dL (3.5-5.2) L 02/18/22 15:00 Globulin 1.8 g/dL (1.3-4.6) 02/18/22 15:00 Urine Color Yellow (Yellow) 02/18/22 17:43 Urine Appearance Clear (CLEAR) 02/18/22 17:43 Urine pH 7 (5-7) 02/18/22 17:43 Ur Specific [place] 1.015 (1.005-1.030) 02/18/22 17:43 Urine Protein 3+ (Negative) H 02/18/22 17:43 Urine Glucose (UA) Norm (Normal) 02/18/22 17:43 Urine Ketones Negative (Negative) 02/18/22 17:43 Urine Blood 3+ (Negative) H 02/18/22 17:43 Urine Nitrate Positive (Negative) H 02/18/22 17:43 Urine Bilirubin Neg (Negative) 02/18/22 17:43 Urine Urobilinogen Neg mg/dL (Negative) 02/18/22 17:43 Ur Leukocyte Esterase 2+ (Negative) H 02/18/22 17:43 Urine RBC 0-4 /hpf (0-2) H 02/18/22 17:43 Urine WBC 5-10 /hpf (0-5) H 02/18/22 17:43 Ur Squamous Epith Cells 0-4 /hpf (0-5) H 02/18/22 17:43 Amorphous Sediment Not Reportable 02/18/22 17:43 Urine Bacteria 2+ /hpf (NONE) H 02/18/22 17:43 Serum Ketones Negative (Negative) 02/18/22 15:00 Discharge Plan Discharge Patient Disposition: Left Against Medical Advice Clinical Impression: Acute cystitis, Fluid overload, Elevated troponin Condition: Stable Prescriptions: No Action Lactobacillus acidophilus [Acidophilus] Capsule 10 mg PO DAILY allopurinol 300 mg tablet 300 mg PO BEDTIME Lantus Solostar U-100 Insulin 100 unit/mL (3 mL) insulin pen 40 unit SUBCUT BEDTIME metoprolol tartrate 50 mg tablet 25 mg PO BID insulin aspart U-100 [Novolog U-100 Insulin aspart] 100 unit/mL solution See Rx Instructions .ROUTE .COMPLEX Rx Instructions: unit subcutaneously PER SLIDING SCALE. GIVE IF BS IS ABOVE 133, HOLD IF BELOW 133 pantoprazole 40 mg tablet,delayed release (DR/EC) 40 mg PO DAILY rosuvastatin 20 mg tablet 20 mg PO BEDTIME aspirin [Adult Low Dose Aspirin] 81 mg tablet,delayed release (DR/EC) 81 mg PO DAILY tamsulosin 0.4 mg capsule 0.4 mg PO DAILY magnesium oxide 400 mg magnesium capsule 400 mg PO DAILY latanoprost 0.005 % drops 1 drp ophthalmic (eye) BEDTIME loperamide 2 mg Tablet 2 mg PO DAILY PRN (Reason: Diarrhea) midodrine 5 mg tablet 10 mg PO TID furosemide 80 mg tablet 80 mg PO BID clotrimazole 1 % cream See Rx Instructions .ROUTE .COMPLEX Rx Instructions: WASH AND DRY AREA THOROUGHLY, AND APPLY TO AFFECTED AREA RenaPlex 800 mcg- 12.5 mg Tablet 1 tab PO DAILY cyclobenzaprine 10 mg Tablet 20 mg PO BEDTIME venlafaxine 37.5 mg capsule,extended release 24hr 37.5 mg PO DAILY amitriptyline 25 mg Tablet 25 mg PO BEDTIME Tums 200 mg calcium (500 mg) Tablet,Chewable 600 mg PO QID Nitrostat 0.4 mg Tablet, Sublingual 0.4 mg SUBLINGUAL Q5M PRN (Reason: Chest Pain) Rx Instructions: do not exceed 3 doses per episode Referrals: Tim Vegas [Primary Care Provider] - Coding Level of Care Code ED Consumer Product Advisor for Chg Fwd Exam Detailed Documented by User: Jose Antonio Merrill MD 02/19/22 00:00 HPI - General Adult General: Chief complaint: General Medical Stated complaint: Dr. Vegas sent for fluid on heart Time Seen by Provider: 02/18/22 15:25 [facility] ED PFSH: Medical History Diabetes Gross hematuria History of sepsis Hydroureteronephrosis Kidney stones Peritoneal dialysis catheter in place Recurrent UTI Risk for falls Surgical History Hx of mitral valve replacement S/P tonsillectomy Family History Father Diabetes Other Cancer Social History Smoking and tobacco status: former smoker Alcohol intake: former Adopted: No Caregiver/support person: No Lives independently: No Household members: spouse Marital status: Current occupational status: disabled History of recent travel: No Current gender identity: Male Course Vital Signs: Vital signs: Vital Signs Temperature 98 F 02/18/22 14:39 Pulse Rate 97 02/18/22 23:36 Respiratory Rate 18 02/18/22 23:36 Blood Pressure 94/59 02/18/22 23:36 Pulse Oximetry 91 02/18/22 23:36 Oxygen Delivery Me thod 02/18/22 21:30 MDM - General Adult Medical Decision Making Patient presents here with end-stage renal disease on peritoneal dialysis with fluid overload along with elevated troponin concerning for NSTEMI he is chest pain-free here. He also has acute cystitis with elevated leukocytosis. I originally did inform patient we had to transfer him due to nephrology capability at that time he decided to sign out AMA I was able to speak to him and his and convince them to stay. We have called multiple facilities [place] and [place] both were on divert I did find him a bed and acceptance at [facility] [place]. At this time patient again he changed his mind and wanted to go I had a long discussion with him and his again and informed them that he could go into heart failure have a heart attack or have worsening infection and he could even be critical he understands this has medical decision made capacity states that he is going to follow-up with his online tutor continue to take his antibiotics for his UTI that I will prescribe we will do his peritoneal dialysis at home. I informed him if he worsens or if he changes his mind about needing to be admitted he is to return immediately he understands this. Lab Data : 02/18/22 15:00 02/18/22 15:00 Radiology Impressions Abdomen/Pelvis CT 02/18/22 15:27 IMPRESSION: 1. Several left kidney nonobstructive calyceal stones measuring up to 8.1 mm, nonspecific 2. Left kidney medullary nephrocalcinosis, typically a chronic benign finding. 3. Percutaneous dialysis catheter coiled in the pelvis with a small amount of adjacent fluid. 4. Constipation. 5. T11 vertebroplasty changes. 6. Minimal coronary artery atherosclerotic calcifications. 7. Patchy bibasilar atelectasis versus minimal infiltrate. 8. Small bilateral pleural effusions. 9. Cholelithiasis with prominence of the gallbladder, ultrasound could further evaluate this. 10. Small bilateral fat containing inguinal hernias with a small amount of fluid in the right inguinal canal. 11. Subcutaneous edema about the abdomen and pelvis. Chest X-Ray 02/18/22 15:27 IMPRESSION: 1. Chronic pulmonary parenchymal changes in the right upper lobe. Increased pulmonary vascularity also appears chronic. 2. No acute process is suspected. Laboratory Results WBC 20.4 10^3/uL (4.0-10.0) H 02/18/22 15:00 RBC 3.05 10^6/uL (4.1-5.3) L 02/18/22 15:00 Hgb 10.0 g/dL (11.7-16.6) L 02/18/22 15:00 Hct 31.6 % (42.0-52.0) L 02/18/22 15:00 MCV 103.6 fl (80-94) H 02/18/22 15:00 MCH 32.8 pg (28.0-34.0) 02/18/22 15:00 MCHC 31.6 g/dL (30.0-36.0) 02/18/22 15:00 RDW 17.5 % (12.1-15.1) H 02/18/22 15:00 Plt Count 177 10^3/cmm (130-400) 02/18/22 15:00 MPV 9.2 fL (7.4-10.4) 02/18/22 15:00 Neut % (Auto) 87.4 % 02/18/22 15:00 Lymph % (Auto) 3.3 % 02/18/22 15:00 [place] % (Auto) 6.8 % 02/18/22 15:00 Eos % (Auto) 0.4 % 02/18/22 15:00 Baso % (Auto) 0.3 % 02/18/22 15:00 Neut # (Auto) 17.79 10^3/uL (1.8-7.7) H 02/18/22 15:00 Lymph # (Auto) 0.7 10^3/uL (0.8-4.8) L 02/18/22 15:00 [place] # (Auto) 1.4 10^3/uL (0.2-0.9) H 02/18/22 15:00 Eos # (Auto) 0.1 10^3/uL (0.0-0.8) 02/18/22 15:00 Baso # (Auto) 0.1 10^3/uL (0.0-0.1) 02/18/22 15:00 Nucleated RBC % (auto) 0 % 02/18/22 15:00 Nucleated RBCs # 0.0 /100WBC 02/18/22 15:00 Sodium 137 mmol/L (136-145) 02/18/22 15:00 Potassium 3.8 mmol/L (3.5-5.1) 02/18/22 15:00 Chloride 90 mmol/L (98-107) L 02/18/22 15:00 Carbon Dioxide 25 mmol/L (22-29) 02/18/22 15:00 Anion Gap 25.8 (5-19) H 02/18/22 15:00 BUN 96 mg/dL (8-23) H* 02/18/22 15:00 Creatinine 11.2 mg/dL (0.7-1.2) H* 02/18/22 15:00 GFR Calculation 4.6 mL/min (90-130) L 02/18/22 15:00 Glucose 150 mg/dL (65-115) H 02/18/22 15:00 Calculated Osmolality 317 mOsm/kg (285-295) H 02/18/22 15:00 Lactic Acid 1.4 mmol/L (0.5-2.2) 02/18/22 18:47 Calcium 9.0 mg/dL (8.5-10.5) 02/18/22 15:00 Total Bilirubin 0.4 mg/dL (0.15-1.2) 02/18/22 15:00 AST 15 U/L (0-40) 02/18/22 15:00 ALT 23 U/L (0-41) 02/18/22 15:00 Alkaline Phosphatase 194 U/L (40-130) H 02/18/22 15:00 Troponin T Baseline 498 ng/L (0-15) H* 02/18/22 16:00 Troponin T 120 Minute 526.7 ng/L (0-15) H 02/18/22 18:47 Delta Troponin T 28.7 ABS# (0-10) H* 02/18/22 18:47 Troponin T Hi Sens 6Hr 538.3 ng/L (0-15) H 02/18/22 21:32 Troponin T Hi Sens 6Hr Delta 40.3 ng/L (0-12) H* 02/18/22 21:32 Total Protein 4.7 g/dL (6.6-8.7) L 02/18/22 15:00 Albumin 2.9 g/dL (3.5-5.2) L 02/18/22 15:00 Globulin 1.8 g/dL (1.3-4.6) 02/18/22 15:00 Urine Color Yellow (Yellow) 02/18/22 17:43 Urine Appearance Clear (CLEAR) 02/18/22 17:43 Urine pH 7 (5-7) 02/18/22 17:43 Ur Specific [place] 1.015 (1.005-1.030) 02/18/22 17:43 Urine Protein 3+ (Negative) H 02/18/22 17:43 Urine Glucose (UA) Norm (Normal) 02/18/22 17:43 Urine Ketones Negative (Negative) 02/18/22 17:43 Urine Blood 3+ (Negative) H 02/18/22 17:43 Urine Nitrate Positive (Negative) H 02/18/22 17:43 Urine Bilirubin Neg (Negative) 02/18/22 17:43 Urine Urobilinogen Neg mg/dL (Negative) 02/18/22 17:43 Ur Leukocyte Esterase 2+ (Negative) H 02/18/22 17:43 Urine RBC 0-4 /hpf (0-2) H 02/18/22 17:43 Urine WBC 5-10 /hpf (0-5) H 02/18/22 17:43 Ur Squamous Epith Cells 0-4 /hpf (0-5) H 02/18/22 17:43 Amorphous Sediment Not Reportable 02/18/22 17:43 Urine Bacteria 2+ /hpf (NONE) H 02/18/22 17:43 Serum Ketones Negative (Negative) 02/18/22 15:00 Discharge Plan Discharge Patient Disposition: Left Against Medical Advice Clinical Impression: Acute cystitis, Fluid overload, Elevated troponin Condition: Stable Prescriptions: No Action Lactobacillus acidophilus [Acidophilus] Capsule 10 mg PO DAILY allopurinol 300 mg tablet 300 mg PO BEDTIME Lantus Solostar U-100 Insulin 100 unit/mL (3 mL) insulin pen 40 unit SUBCUT BEDTIME metoprolol tartrate 50 mg tablet 25 mg PO BID insulin aspart U-100 [Novolog U-100 Insulin aspart] 100 unit/mL solution See Rx Instructions .ROUTE .COMPLEX Rx Instructions: unit subcutaneously PER SLIDING SCALE. GIVE IF BS IS ABOVE 133, HOLD IF BELOW 133 pantoprazole 40 mg tablet,delayed release (DR/EC) 40 mg PO DAILY rosuvastatin 20 mg tablet 20 mg PO BEDTIME aspirin [Adult Low Dose Aspirin] 81 mg tablet,delayed release (DR/EC) 81 mg PO DAILY tamsulosin 0.4 mg capsule 0.4 mg PO DAILY magnesium oxide 400 mg magnesium capsule 400 mg PO DAILY latanoprost 0.005 % drops 1 drp ophthalmic (eye) BEDTIME loperamide 2 mg Tablet 2 mg PO DAILY PRN (Reason: Diarrhea) midodrine 5 mg tablet 10 mg PO TID furosemide 80 mg tablet 80 mg PO BID clotrimazole 1 % cream See Rx Instructions .ROUTE .COMPLEX Rx Instructions: WASH AND DRY AREA THOROUGHLY, AND APPLY TO AFFECTED AREA RenaPlex 800 mcg- 12.5 mg Tablet 1 tab PO DAILY cyclobenzaprine 10 mg Tablet 20 mg PO BEDTIME venlafaxine 37.5 mg capsule,extended release 24hr 37.5 mg PO DAILY amitriptyline 25 mg Tablet 25 mg PO BEDTIME Tums 200 mg calcium (500 mg) Tablet,Chewable 600 mg PO QID Nitrostat 0.4 mg Tablet, Sublingual 0.4 mg SUBLINGUAL Q5M PRN (Reason: Chest Pain) Rx Instructions: do not exceed 3 doses per episode Referrals: Tim Vegas [Primary Care Provider] - Coding Level of Care Code ED Consumer Product Advisor for g Fwd Exam Detailed
[2022-02-18 15:43] LABS: Alanine Aminotransferase 23 U/L (0-41); Albumin Level 2.9 g/dL (3.5-5.2); Alkaline Phosphatase 194 U/L (40-130); Anion Gap 25.8 (5-19); Aspartate Amino Transferase 15 U/L (0-40); Carbon Dioxide 25 mmol/L (22-29); Chloride 90 mmol/L (98-107); Globulin 1.8 g/dL (1.3-4.6); Glomerular Filtration Rate 4.6 mL/min (90-130); Glucose 150 mg/dL (65-115); Osmolality Calculated 317 mOsm/kg (285-295); Potassium 3.8 mmol/L (3.5-5.1); Sodium 137 mmol/L (136-145); Total Bilirubin 0.4 mg/dL (0.15-1.2); Total Protein 4.7 g/dL (6.6-8.7)
[2022-02-18 15:58] LABS: Blood Urea Nitrogen 96 mg/dL (8-23)
--- NOTE | 2022-02-18 16:04 | PC.NURSE ---
PT PLACED ON CONTINUOUS NIBP, SPO2, AND CM
[2022-02-18 16:36] LABS: Ketone (Acetest) Serum Negative (Negative)
[2022-02-18 17:01] LABS: Troponin(5th) Baseline 498 ng/L (0-15)
[2022-02-18 18:17] LABS: Glucose Urine UA Norm (Normal); Protein Urine 3+ (Negative); Specific Gravity, Urine 1.015 (1.005-1.030); Urine Appearance Clear (CLEAR); Urine Color Yellow (Yellow); pH Urine 7 (5-7)
[2022-02-18 18:18] LABS: Add Urine Microscopic? YES; Bilirubin Urine Neg (Negative); Blood Urine 3+ (Negative); Ketones Urine Negative (Negative); Leukocyte Esterase Urine 2+ (Negative); Nitrate Urine Positive (Negative); Urobilinogen Urine Neg (Negative)
--- NOTE | 2022-02-18 18:25 | ECG_ITS ---
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 Measurements Intervals [place] Rate: 86 P: [place]: QRS: 230 QRSD: 178 T: 29 QT: 431 QTc: 518 Interpretive Statements ATRIAL FIBRILLATION RIGHT AXIS DEVIATION [QRS AXIS > 100] RIGHT BUNDLE BRANCH BLOCK [120+ ms QRS DURATION, UPRIGHT V1, 40+ ms S IN I/aVL/V4/V5/V6] POSSIBLE ANTERIOR MYOCARDIAL INFARCTION , PROBABLY OLD [30 ms Q WAVE IN V3/V4, OR R < 0.2 mV IN V4] Compared to ECG 02/18/2022 15:53:34 Atrial flutter no longer present Myocardial infarct finding still present Electronically Signed On 02-20-2022 7:08:49 CDT by Des Le M.D. [id number]
[2022-02-18 18:29] LABS: Add Urine Culture? Yes; Bacteria Urine 2+ /hpf; RBC Urine 0-4 /hpf (0-2); Squamous Epithelial Cell Urine 0-4 /hpf (0-5)
[2022-02-18 19:19] LABS: Lactic Sepsis W/Reflex 1.4 mmol/L (0.5-2.2)
[2022-02-18 19:25] LABS: Troponin 5 2HR 526.7 ng/L (0-15); Troponin 5 2HR Delta 28.7 ABS# (0-10)
[2022-02-18] MEDS: levofloxacin-dextrose 5 % 750 MG/150 ML PREMIX 100 MG IV (19:30)
--- NOTE | 2022-02-18 19:54 | PC.NURSE ---
After pt made decision to leave AMA, 2 hr troponin results came back elevated at 526.7 delta +22.7. I ntfd provider of the results as well as the pt. I stressed the significance of this result and explained that an elevated troponin could be a indicative of a NSTEMI. Pt understands the information provided and still wishes to leave [facility]. Pt states he is not willing to be transfered to [place] and he will return to hospital if he feels he is having a heart attack.
--- NOTE | 2022-02-18 21:37 | ECG_ITS ---
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 Measurements Intervals [place] Rate: 100 P: [place]: QRS: 249 QRSD: 165 T: 32 QT: 401 QTc: 519 Interpretive Statements ATRIAL FIBRILLATION WITH RAPID VENTRICULAR RESPONSE RIGHT AXIS DEVIATION [QRS AXIS > 100] RIGHT BUNDLE BRANCH BLOCK [120+ ms QRS DURATION, UPRIGHT V1, 40+ ms S IN I/aVL/V4/V5/V6] POSSIBLE ANTERIOR MYOCARDIAL INFARCTION , PROBABLY OLD [30 ms Q WAVE IN V3/V4, OR R < 0.2 mV IN V4] Compared to ECG 02/18/2022 18:25:48 No significant changes Electronically Signed On 02-20-2022 7:10:39 CDT by Des Le M.D. [id number]
[2022-02-18 22:20] LABS: Troponin 5 6HR 538.3 ng/L (0-15); Troponin 5 6HR Delta 40.3 ng/L (0-12)
--- NOTE | 2022-02-18 22:21 | PC.NURSE ---
2 hour trop 538.3, Delta 40.3. Dr Merrill notified
== END 2022-02-18 23:41 | disposition left against medical advice (07) ==
PROVIDERS: Family Medicine; Emergency Provider Emergency Medicine; PCP Family Medicine
DX: N30.00 Acute cystitis without hematuria (principal); N18.6 End stage renal disease; Z99.2 Dependence on renal dialysis; I50.9 Heart failure, unspecified; R77.8 Other specified abnormalities of plasma proteins; Z53.29 Procedure and treatment not carried out because of patient's decision for other reasons
CPT/HCPCS: 36415; 71045; 74176; 80053; 81001; 82009; 83605; 84484; 85025; 87040; 87077; 87086; 87186; 93005; 96365; 99285; J1956

== ENCOUNTER 2022-08-21 12:45 | Inpatient (IN) | payer MEDICARE, OTHER, SELFPAY ==
[2022-08-21 12:49] VITALS: BP 105/63; PULSE 110; RESP 32; TEMP 35.6; O2SAT 96; BMI 43.0
--- NOTE | 2022-08-21 14:50 | ED_ITS ---
HPI - Wound/Laceration General: Chief Complaint: Wound/Laceration Stated Complaint: [facility] sent for toe infection Time Seen by Provider: 08/21/22 14:41 Source: patient Mode of arrival: ambulatory History of Present Illness: 66 yo male presents to the emergency room from his primary care doctor's office. The patient is wheelchair-bound he states is due to a previous episode of sepsis he is not able to bear weight or transfer. Few days ago he evidently was using a Giovanni lift because left great toe and over left barely noticed that and then later noticed he had an injury to the toe its progressively become worse foul-smelling with localized redness and erythema. He went to see Dr. Whipple today and is referred to the emergency room. He denies any fever sweats or chills at this point. Onset (ago): minute(s) Location: other (Left great toe) Place: home Context: accidental Associated symptoms: Denies chills, fever(s), foreign body sensation, inability to move, nausea, numbness, pain, syncope or vomiting Review of Systems Const: Denies: fever(s), chills, fatigue or malaise ENMT: Denies: throat pain, ear or mastoid pain, nasal discharge or nasal congestion Card: Denies: syncope Resp: Denies: dyspnea, productive cough or non-productive cough GI: Denies: abdominal pain, nausea or vomiting : Denies: flank pain, dysuria, urinary frequency or urinary urgency Skin/Breast: Reports: erythema and new lesions PFSH ED PFSH: Medical History Diabetes Gross hematuria History of sepsis Hydroureteronephrosis Kidney stones Peritoneal dialysis catheter in place Recurrent UTI Risk for falls Surgical History Hx of mitral valve replacement S/P tonsillectomy Family History Father Diabetes Other Cancer Social History Smoking and tobacco status: former smoker Alcohol intake: former Substance/Drug Use: never Adopted: No Caregiver/support person: No Lives independently: No Household members: spouse Marital status: Current occupational status: disabled Current gender identity: Male Physical Exam Const: GENERAL APPEARANCE: cooperative and comfortable ORIENTATION/CONSCIOUSNESS: Yes awake, Yes oriented to person, Yes oriented to place and Yes oriented to time HENMT: COMMON NORMALS: normocephalic, atraumatic and hearing grossly normal bilaterally HEAD & SCALP: normocephalic and atraumatic Resp: COMMON NORMALS: normal respiratory effort, No retractions, No use of accessory muscles and clear to auscultation bilaterally AUSCULTATION: clear to auscultation bilaterally Cardio: COMMON NORMALS: regular rate, regular rhythm and No murmurs present (Cardio) RATE: regular rate RHYTHM: regular rhythm GI: COMMON NORMALS: Soft to palpation and No hepatosplenomegaly present AUSCULTATION: Yes normoactive bowel sounds PALPATION: Yes Soft to palpation, No Tenderness to palpation present (GI), No Guarding due to palpation present (GI) and Yes No hepatosplenomegaly present Extremity: OTHER: Left great toe dorsal lateral area there is a 3 inch x 1 inch skin defect of the black eschar in place very foul-smelling purulent appearing mucosal eschar underneath the black eschar. There is localized erythema with swelling of the toe and edema and proximal lymphangitic spread Neuro: SENSORIUM/ORIENTATION: Yes oriented to person, Yes oriented to place and Yes oriented to time Skin: COMMON NORMALS: no rashes or lesions noted GENERAL SKIN EXAM: no rashes or lesions noted Course Vital Signs: Vital signs: Vital Signs Temperature 97.8 F 08/22/22 03:59 Pulse Rate 112 H 08/22/22 03:59 Respiratory Rate 16 08/22/22 03:59 Blood Pressure 90/60 08/22/22 03:59 Pulse Oximetry 95 08/22/22 03:59 Oxygen Delivery Me thod Room Air 08/22/22 03:59 MDM - Wound/Laceration Medical Decision Making Left toe injury with proximal lymphangitic spread localized swelling. Patient is diabetic and largely immobile. He has poor sensation lower extremities did not even notice initially the injury. Is very foul-smelling. Cultures done started on vancomycin discussed with hospitalist. Consult [facility] podiatry. Dr. Kate was not on-call but was kind enough to agree to see the patient and she came and seen the patient in the emergency room and will consult with the patient in conjunction with the hospitalist while an inpatient. Medical Records I reviewed the patient's medical records. Lab Data I reviewed the patient's lab results. 08/22/22 04:29 08/22/22 04:29 Radiology Impressions Foot X-Ray 08/21/22 15:00 IMPRESSION: 1. No fracture or bone destruction. 2. Soft tissue ulceration along the dorsum of the great toe with soft tissue edema. 3. Pronounced demineralization of the ankle and foot. Extensive vascular calcifications noted. Laboratory Results WBC 15.3 10^3/uL (4.0-10.0) H 08/21/22 14:50 RBC 3.43 10^6/uL (4.1-5.3) L 08/21/22 14:50 Hgb 11.2 g/dL (11.7-16.6) L 08/21/22 14:50 Hct 35.0 % (42.0-52.0) L 08/21/22 14:50 MCV 102.0 fl (80-94) H 08/21/22 14:50 MCH 32.7 pg (28.0-34.0) 08/21/22 14:50 MCHC 32.0 g/dL (30.0-36.0) 08/21/22 14:50 RDW 18.2 % (12.1-15.1) H 08/21/22 14:50 Plt Count 226 10^3/cmm (130-400) 08/21/22 14:50 MPV 9.3 fL (7.4-10.4) 08/21/22 14:50 Neut % (Auto) 82.0 % 08/21/22 14:50 Lymph % (Auto) 6.5 % 08/21/22 14:50 [facility] % (Auto) 4.9 % 08/21/22 14:50 Eos % (Auto) 1.2 % 08/21/22 14:50 Baso % (Auto) 0.6 % 08/21/22 14:50 Neut # (Auto) 12.58 10^3/uL (1.8-7.7) H 08/21/22 14:50 Lymph # (Auto) 1.0 10^3/uL (0.8-4.8) 08/21/22 14:50 [facility] # (Auto) 0.8 10^3/uL (0.2-0.9) 08/21/22 14:50 Eos # (Auto) 0.2 10^3/uL (0.0-0.8) 08/21/22 14:50 Baso # (Auto) 0.1 10^3/uL (0.0-0.1) 08/21/22 14:50 Nucleated RBC % (auto) 0 % 08/21/22 14:50 Nucleated RBCs # 0.0 /100WBC 08/21/22 14:50 ESR 24 mm/hr (0-10) H 08/21/22 14:50 Sodium 132 mmol/L (136-145) L 08/21/22 14:50 Potassium 3.1 mmol/L (3.5-5.1) L 08/21/22 14:50 Chloride 90 mmol/L (98-107) L 08/21/22 14:50 Carbon Dioxide 25 mmol/L (22-29) 08/21/22 14:50 Anion Gap 20.1 (5-19) H 08/21/22 14:50 BUN 79 mg/dL (8-23) H 08/21/22 14:50 Creatinine 7.4 mg/dL (0.7-1.2) H* 08/21/22 14:50 GFR Calculation 7.4 mL/min (90-130) L 08/21/22 14:50 Glucose 256 mg/dL (65-115) H 08/21/22 14:50 Calculated Osmolality 306 mOsm/kg (285-295) H 08/21/22 14:50 Lactic Acid 2.2 mmol/L (0.5-2.2) 08/21/22 14:50 Calcium 8.8 mg/dL (8.5-10.5) 08/21/22 14:50 Total Bilirubin 0.2 mg/dL (0.15-1.2) 08/21/22 14:50 AST 21 U/L (0-40) 08/21/22 14:50 ALT 27 U/L (0-41) 08/21/22 14:50 Alkaline Phosphatase 262 U/L (40-130) H 08/21/22 14:50 C-Reactive Protein 52.7 mg/L (0.0-4.9) H 08/21/22 14:50 Total Protein 5.7 g/dL (6.6-8.7) L 08/21/22 14:50 Albumin 3.1 g/dL (3.5-5.2) L 08/21/22 14:50 Globulin 2.6 g/dL (1.3-4.6) 08/21/22 14:50 Discharge Plan Discharge Patient Disposition: Admitted As Inpatient Admit Provider: Jose Puckett Clinical Impression: Cellulitis of left foot, Peritoneal dialysis catheter in place, Morbid obesity, ESRD (end stage renal disease), Diabetes Condition: Stable Coding Level of Care Code ED [employer] for Joaquina Zabala
[2022-08-21 14:54] VITALS: O2SAT 98
--- NOTE | 2022-08-21 15:00 | XR_ITS ---
WS: [id number] Exam: XR foot LT min 3V* [id number] Date/Time of Exam: 08/21/2022 3:08 PM Reason For Exam: L great toe ulcer No acute fracture or dislocation. Pronounced demineralization of the foot and ankle. Extensive vascul ar calcifications about the foot and ankle. Soft tissue ulceration seen along the dorsum of the great toe with soft tissue swelling. No obvious bone destruction. XR/XR foot LT min 3V* [id number] IMPRESSION: 1. No fracture or bone destruction. 2. Soft tissue ulceration along the dorsum of the great toe with soft tissue ed maribell. 3. Pronounced demineralization of the ankle and foot. Extensive vascular calcif ications noted.
[2022-08-21 15:01] LABS: Basophils # 0.1 10^3/uL (0.0-0.1); Basophils % 0.6 %; Eosinophils # 0.2 10^3/uL (0.0-0.8); Eosinophils % 1.2 %; Hemoglobin 11.2 g/dL (11.7-16.6); Lymphocytes % 6.5 %; Mean Corpuscular Hemoglobin 32.7 pg (28.0-34.0); Mean Platelet Volume 9.3 fL (7.4-10.4); Monocytes # 0.8 10^3/uL (0.2-0.9); Monocytes % 4.9 %; Neutrophils # 12.58 10^3/uL (1.8-7.7); Nucleated Red Blood Cells % 0 %; Platelet Count 226 10^3/cmm (130-400); Red Blood Count 3.43 10^6/uL (4.1-5.3); Red Cell Distribution Width 18.2 % (12.1-15.1); White Blood Count 15.3 10^3/uL (4.0-10.0)
[2022-08-21 15:16] LABS: Erythrocyte Sedimentation Rate 24 mm/hr (0-10)
[2022-08-21 15:19] LABS: Lactic Sepsis W/Reflex 2.2 mmol/L (0.5-2.2)
[2022-08-21 15:20] LABS: Alanine Aminotransferase 27 U/L (0-41); Albumin Level 3.1 g/dL (3.5-5.2); Alkaline Phosphatase 262 U/L (40-130); Anion Gap 20.1 (5-19); Aspartate Amino Transferase 21 U/L (0-40); Blood Urea Nitrogen 79 mg/dL (8-23); Calcium 8.8 mg/dL (8.5-10.5); Carbon Dioxide 25 mmol/L (22-29); Chloride 90 mmol/L (98-107); Globulin 2.6 g/dL (1.3-4.6); Glomerular Filtration Rate 7.4 mL/min (90-130); Glucose 256 mg/dL (65-115); Osmolality Calculated 306 mOsm/kg (285-295); Potassium 3.1 mmol/L (3.5-5.1); Sodium 132 mmol/L (136-145); Total Bilirubin 0.2 mg/dL (0.15-1.2); Total Protein 5.7 g/dL (6.6-8.7)
[2022-08-21 15:41] LABS: C Reactive Protein 52.7 mg/L (0.0-4.9)
[2022-08-21 16:00] VITALS: RESP 19; O2SAT 94
[2022-08-21] MEDS: vancomycin 1,000 MG in sodium chloride 0.9% 250 ML 250 MG IV (16:24)
[2022-08-21 16:45] LABS: Reflex Lactate Order REFLEX LACTIC ORDERD
--- NOTE | 2022-08-21 17:42 | P.HP_ITS ---
Providers/Chief Complaint Primary Care Provider: Tim Vegas Chief Complaint: [place] sent for toe infection History of Present Illness Higinio Krishnamurthy is a 66 year old male with PMH of DM,morbid obesity, ESRD on P/D came in today with c/o worseing lt feet pain, ulceration,foul smelling discharge. Xray lt feet showed No fracture or bone destruction.Soft tissue ulceration along the dorsum of the great toe with soft tissue edema. pertinent labs : WBC: 15.3 H&H : 1135 PLT : 226 Na : 132 k: 3.1 BUN/SCR : 79/7.4 ESR:24 , CRP : 52 Lactic acid : 2.2 Patient was given 1 dose of vancomycin in ER, orthopedic has been consulted. Review of Systems General: Reports: 10 or more systems reviewed and unremarkable except in HPI and below Const: Denies: fever(s), chills, body aches, change in appetite or diaphoresis Card: Denies: palpitations, edema, swelling of feet/ankles, dyspnea on exertion, orthopnea or leg pain with exertion Resp: Denies: dyspnea, productive cough, wheezing or pain on inspiration GI: Denies: abdominal pain, nausea, vomiting, diarrhea or constipation : Denies: flank pain or difficulty urinating Musc: Denies: back pain, extremity pain or extremity swelling Neuro: Denies: headache(s), difficulty walking or confusion Medications/Allergies Home Medications Medication Instructions Recorded Confirmed Last Taken Type Lactobacillus acidophilus 10 mg PO DAILY 08/08/19 08/21/22 08/21/22 History (Acidophilus capsule) allopurinol 300 mg tablet 300 mg PO BEDTIME 08/08/19 08/21/22 08/20/22 History aspirin 81 mg tablet,delayed 81 mg PO DAILY 08/08/19 08/21/22 08/21/22 History release (Adult Low Dose Aspirin) insulin aspart U-100 100 unit/mL See Rx Instructions .Route .COMPLEX 08/08/19 08/21/22 Unknown History subcutaneous solution (Novolog U-100 Insulin aspart) insulin glargine 100 unit/mL (3 40 unit SUBCUT BEDTIME 08/08/19 08/21/22 08/20/22 History mL) subcutaneous pen (Lantus Solostar U-100 Insulin) magnesium oxide 400 mg PO DAILY 08/08/19 08/21/22 08/21/22 History pantoprazole 40 mg tablet,delayed 40 mg PO DAILY 08/08/19 08/21/22 08/21/22 History release rosuvastatin 20 mg tablet 20 mg PO BEDTIME 08/08/19 08/21/22 08/20/22 History tamsulosin 0.4 mg capsule 0.4 mg PO DAILY 08/08/19 08/21/22 08/21/22 History clotrimazole 1 % topical cream See Rx Instructions .Route .COMPLEX 01/10/21 08/21/22 01/10/21 History furosemide 80 mg tablet 80 mg PO BID 01/10/21 08/21/22 08/21/22 History latanoprost 0.005 % eye drops 1 drp ophthalmic (eye) BEDTIME 01/10/21 08/21/22 08/20/22 History loperamide 2 mg tablet 2 mg PO DAILY PRN Diarrhea 01/10/21 08/21/22 01/10/21 History midodrine 5 mg tablet 10 mg PO TID 01/10/21 08/21/22 08/21/22 History amitriptyline 25 mg tablet 25 mg PO BEDTIME 02/18/22 08/21/22 08/20/22 History calcium carbonate 200 mg calcium 600 mg PO QID 02/18/22 08/21/22 08/21/22 History (500 mg) chewable tablet (Tums) cyclobenzaprine 10 mg tablet 20 mg PO BEDTIME 02/18/22 08/21/22 08/20/22 History nitroglycerin 0.4 mg sublingual 0.4 mg sublingual Q5M PRN Chest 02/18/22 08/21/22 Unknown History tablet (Nitrostat) Pain venlafaxine 37.5 mg 37.5 mg PO DAILY 02/18/22 08/21/22 08/21/22 History capsule,extended release 24 hr vitamin B complex with vit C-folic 1 tab PO DAILY 02/18/22 08/21/22 08/21/22 History acid 800 mcg-zinc 12.5 mg tablet (RenaPlex) gabapentin 100 mg capsule 100 mg PO DAILY PRN Pain 08/21/22 08/21/22 Unknown History gentamicin 0.1 % topical cream 1 applic topical DAILY 04/27/23 04/27/23 04/27/23 History ondansetron HCl 4 mg tablet 4 mg PO Q6H PRN Nausea 08/21/22 08/21/22 Unknown Hi story Allergies Allergy/AdvReac Type Severity Reaction Status Date / Time cefepime Allergy Mild ALGY-Rash Verified 08/21/22 19:53 atorvastatin [From Lipitor] Allergy Rash Verified 05/03/20 11:00 cefuroxime Allergy Rash Verified 05/03/20 11:00 PFSH Acute PFSH: Medical History Diabetes Gross hematuria History of sepsis Hydroureteronephrosis Kidney stones Peritoneal dialysis catheter in place Recurrent UTI Risk for falls Surgical History Hx of mitral valve replacement S/P tonsillectomy Family History Father Diabetes Other Cancer Social History Smoking and tobacco status: former smoker Alcohol intake: former Substance/Drug Use: never Adopted: No Caregiver/support person: No Lives independently: No Household members: spouse Marital status: Current occupational status: disabled Current gender identity: Male Vitals/I&O/Wt Last Vital Signs Temp 96.0 F L 08/21/22 12:49 Pulse 110 H 08/21/22 12:49 Resp 19 H 08/21/22 16:00 BP 105/63 08/21/22 12:49 Pulse Ox 94 08/21/22 16:00 O2 Del Method Room Air 08/21/22 16:00 Weight last 48 hrs Weight 140.16 kg Physical Exam Const: COMMON NORMALS: patient oriented x3 HENMT: COMMON NORMALS: normocephalic and atraumatic HEAD & SCALP: normocephalic and atraumatic Resp: COMMON NORMALS: clear to auscultation bilaterally EFFORT & INSPECTION: Yes symmetric chest movement AUSCULTATION: clear to auscultation bilaterally Cardio: COMMON NORMALS: regular rate, regular rhythm, S1 normal heart sound present, S2 normal heart sound present, No gallops present (Cardio), No murmurs present (Cardio), No rub (Cardio) and Peripheral pulses 2+ throughout RATE: regular rate RHYTHM: regular rhythm HEART SOUNDS: S1 normal heart sound present and S2 normal heart sound present PERIPHERAL PULSES: Peripheral pulses 2+ throughout GI: COMMON NORMALS: Normal to inspection, nondistended, normoactive bowel sounds present, Soft to palpation, non-tender, No hepatosplenomegaly present and no masses AUSCULTATION: Yes normoactive bowel sounds PALPATION: Yes Soft to palpation and Yes No hepatosplenomegaly present RECTAL EXAM: Yes deferred Extremity: COMMON NORMALS: no clubbing, cyanosis or edema and no pedal edema Neuro: COMMON NORMALS: patient oriented x3 Data 08/22/22 04:29 08/22/22 04:29 Micro: Microbiology 08/21/22 15:07 Blood Culture - Preliminary Blood SPECIMEN COLLECTED 08/21/22 14:50 Blood Culture - Preliminary Blood SPECIMEN COLLECTED A&P Assessment and plan (1) Morbid obesity: (2) Diabetes: (3) Foot ulcer: (4) ESRD (end stage renal disease): Plan 66 year old male with PMH of DM,morbid obesity, ESRD on P/D came in today with c/o worseing lt feet pain, ulceration,foul smelling discharge. Assessment : lT Great toe ulce/wound r/o possible osteomyelytis Xray lt feet showed No fracture or bone destruction.Soft tissue ulceration along the dorsum of the great toe with soft tissue edema. follow Blood culture Currently on broad spectrum abxs van and meropenam Pdiatry on board DM : Contniue lantus and MDSSI ESRD ON P/D : Routine nephrology consult for P/D in the morning Code Status :Full code DVT PPX: On Heparin sc Attestations Medical Necessity Statement*: Patient needs to be in hospital for the management of lt feet wound.Anticipated LOS Greater then 2 midnights. Coding Level of Care Code 20096 Diagnoses Morbid obesity E66.01 Diabetes E11.9 Foot ulcer L97.509 ESRD (end stage renal disease) N18.6
[2022-08-21 18:15] LABS: Lactic Acid level (Lactate) 1.7 mmol/L (0.5-2.2)
--- NOTE | 2022-08-21 18:19 | PM.CONSULT ---
Providers/Reason For Consult Consulting Physician/Specialty*: Elfego Kate D.P.M. Reason for Consult*: Diabetic ulcer left great toe with cellulitis Primary Care Provider: Tim Vegas History of Present Illness History of Present Illness Higinio Krishnamurthy is a 66 year old insulin-dependent diabetic male with end-stage renal disease, undergoes peritoneal dialysis. He was referred to the emergency department by his primary care physician for evaluation of a infected wound to his left great toe with surrounding cellulitis. States that the wound occurred several weeks ago, he actually slid his feet into a wall when transferring off of the toilet utilizing a Giovanni lift at home. He sustained wounds to the top of his great toe and second toe both left and right foot. He states that his left foot great toe has become worrisome since Thursday with increased redness and drainage. Right foot has been healing uneventfully. Review of Systems General: Reports: 10 or more systems reviewed and unremarkable except in HPI and below Const: Denies: fever(s) or chills Eyes: Denies: change in vision Card: Denies: chest pain or palpitations Resp: Denies: dyspnea or productive cough GI: Denies: abdominal pain, nausea or vomiting : Denies: flank pain Musc: Reports: extremity swelling, joint stiffness and deformity Skin/Breast: Reports: erythema, sores, changes in skin color, dry skin, nail changes and change in hair Neuro: Reports: numbness in extremities, sensory changes and difficulty walking Psych: Denies: suicidal ideation Endo: Denies: change in body appearance Shad/Lymph: Denies: tender lymph nodes Medications/Allergies Home Medications Medication Instructions Recorded Confirmed Last Taken Type Lactobacillus acidophilus 10 mg PO DAILY 08/08/19 08/21/22 08/21/22 History (Acidophilus capsule) allopurinol 300 mg tablet 300 mg PO BEDTIME 08/08/19 08/21/22 08/20/22 History aspirin 81 mg tablet,delayed 81 mg PO DAILY 08/08/19 08/21/22 08/21/22 History release (Adult Low Dose Aspirin) insulin aspart U-100 100 unit/mL See Rx Instructions .Route .COMPLEX 08/08/19 08/21/22 Unknown History subcutaneous solution (Novolog U-100 Insulin aspart) insulin glargine 100 unit/mL (3 40 unit SUBCUT BEDTIME 08/08/19 08/21/22 08/20/22 History mL) subcutaneous pen (Lantus Solostar U-100 Insulin) magnesium oxide 400 mg PO DAILY 08/08/19 08/21/22 08/21/22 History pantoprazole 40 mg tablet,delayed 40 mg PO DAILY 08/08/19 08/21/22 08/21/22 History release rosuvastatin 20 mg tablet 20 mg PO BEDTIME 08/08/19 08/21/22 08/20/22 History tamsulosin 0.4 mg capsule 0.4 mg PO DAILY 08/08/19 08/21/22 08/21/22 History clotrimazole 1 % topical cream See Rx Instructions .Route .COMPLEX 01/10/21 08/21/22 01/10/21 History furosemide 80 mg tablet 80 mg PO BID 01/10/21 08/21/22 08/21/22 History latanoprost 0.005 % eye drops 1 drp ophthalmic (eye) BEDTIME 01/10/21 08/21/22 08/20/22 History loperamide 2 mg tablet 2 mg PO DAILY PRN Diarrhea 01/10/21 08/21/22 01/10/21 History midodrine 5 mg tablet 10 mg PO TID 01/10/21 08/21/22 08/21/22 History amitriptyline 25 mg tablet 25 mg PO BEDTIME 02/18/22 08/21/22 08/20/22 History calcium carbonate 200 mg calcium 600 mg PO QID 02/18/22 08/21/22 08/21/22 History (500 mg) chewable tablet (Tums) cyclobenzaprine 10 mg tablet 20 mg PO BEDTIME 02/18/22 08/21/22 08/20/22 History nitroglycerin 0.4 mg sublingual 0.4 mg sublingual Q5M PRN Chest 02/18/22 08/21/22 Unknown History tablet (Nitrostat) Pain venlafaxine 37.5 mg 37.5 mg PO DAILY 02/18/22 08/21/22 08/21/22 History capsule,extended release 24 hr vitamin B complex with vit C-folic 1 tab PO DAILY 02/18/22 08/21/22 08/21/22 History acid 800 mcg-zinc 12.5 mg tablet (RenaPlex) gabapentin 100 mg capsule 100 mg PO DAILY PRN Pain 08/21/22 08/21/22 Unknown History gentamicin 0.1 % topical cream 1 applic topical DAILY 08/21/22 08/21/22 08/21/22 History ondansetron HCl 4 mg tablet 4 mg PO Q6H PRN Nausea 08/21/22 08/21/22 Unknown History Allergies Allergy/AdvReac Type Severity Reaction Status Date / Time atorvastatin [From Lipitor] Allergy Rash Verified 05/03/20 11:00 cefuroxime Allergy Rash Verified 05/03/20 11:00 PFSH Acute PFSH: Medical History (Updated 08/21/22 @ 18:39 by Elfego Kate DPM) Diabetes Gross hematuria History of sepsis Hydroureteronephrosis Kidney stones Peritoneal dialysis catheter in place Recurrent UTI Risk for falls Surgical History Hx of mitral valve replacement S/P tonsillectomy Family History Father Diabetes Other Cancer Social History Smoking and tobacco status: former smoker Alcohol intake: former Substance/Drug Use: never Adopted: No Caregiver/support person: No Lives independently: No Household members: spouse Marital status: Current occupational status: disabled Current gender identity: Male Vitals/I&O/Wt Last Vital Signs Temp 96.0 F L 08/21/22 12:49 Pulse 110 H 08/21/22 12:49 Resp 19 H 08/21/22 16:00 BP 105/63 08/21/22 12:49 Pulse Ox 94 08/21/22 16:00 O2 Del Method Room Air 08/21/22 16:00 Weight last 48 hrs Weight 309 lb Physical Exam Narrative: GENERAL: Patient is alert and oriented ?3 and in no acute distress. The following is a focused bilateral lower extremity exam. Patient utilizing a powered scooter. He is accompanied by his . VASCULAR: Dorsalis pedis diminished left and right foot. Posterior tibial arteries diminished. Capillary refill time less than 5 seconds to the distal hallux bilaterally. Calf is supple and nontender proximally and distally. Decreased pedal hair growth bilaterally. NEUROLOGICAL: Protective sensation intact 0/10 sites, tested with Riley Roger monofilament to bilateral feet. DERMATOLOGICAL: Grade 2 wound to the dorsal medial aspect of the left hallux interphalangeal joint with eschar at the medial aspect of the wound, the eschar is dry and stable without fluctuance. Lateral aspect of the wound is exposed to subcutaneous tissue with epithelialized margin laterally and fibrotic base with serous drainage. Periwound erythema to the left great toe with streaking to the level of the midfoot. Abrasion to the dorsum of the left second toe with stable eschar, no periwound erythema, warmth or drainage from the left second toe. Stable at car at the suspect that the right great toe and second toe without periwound erythema, warmth or drainage. MUSCULOSKELETAL: Hammertoe digits 2, 3, 4, 5 bilateral. Hallux malleus left greater than right. No crepitus with palpation of soft tissue to the left foot. Data 08/21/22 14:50 08/21/22 14:50 Micro: Microbiology 08/21/22 15:07 Blood Culture - Preliminary Blood SPECIMEN COLLECTED 08/21/22 14:50 Blood Culture - Preliminary Blood SPECIMEN COLLECTED A&P Assessment and plan (1) ESRD (end stage renal disease): (2) Chronic ulcer of great toe of left foot with fat layer exposed: (3) Cellulitis of left foot: (4) Peripheral arterial disease: 66-year-old diabetic male with end-stage renal disease presents with infected Villareral grade 2 wound to the left great toe with surrounding cellulitis. X-ray left foot negative for soft tissue emphysema, negative for foreign body, negative for acute osseous erosions or destruction. Significant Mockingbird sclerosis appreciated left foot x-ray extending to the digital arteries. Clinically left great toe wound does not probe to bone WBC 15.3, ESR 24, CRP 52.7. We will order noninvasive vascular studies Wound cultures taken in the emergency department Dressing ith Betadine wet to dry in the emergency department Acute infection with cellulitis to left great toe, given diminished pedal pulses will hold off on sharp debridement, will order enzymatic debridement Santyl to be applied once daily and start empiric IV antibiotics and monitor his response clinically over the next few days. Consult Attestations Medical Necessity Statement: Infected diabetic foot ulcer, left great toe with cellulitis. Coding Level of Care Code Acute Code for [facility] Diagnoses ESRD (end stage renal disease) N18.6 Chronic ulcer of great toe of left foot with fat layer exposed L97.522 Cellulitis of left foot L03.116 Peripheral arterial disease I73.9
[2022-08-21] MEDS: meropenem 500 MG in sodium chloride 0.9% (plus) 50 ML 100 MG IV (18:55)
[2022-08-21] MEDS: FUROsemide 40 mg Tablet 80 MG PO (18:55)
[2022-08-21] MEDS: heparin 5,000 unit/mL INJ 1 mL 5000 UNIT SUBCUT (18:55)
[2022-08-21 19:03] VITALS: O2SAT 98
[2022-08-21 19:51] VITALS: BP 129/67; PULSE 79; RESP 18; TEMP 37; O2SAT 95
[2022-08-21 19:52] VITALS: BP 129/67; PULSE 79; RESP 18; TEMP 37; O2SAT 95
[2022-08-21 21:00] LABS: Glucose Point of Care 188 mg/dL (70-110)
[2022-08-21] MEDS: allopurinol 300 mg Tablet PO (21:37)
[2022-08-21] MEDS: calcium carbonate 500 mg Chew Tablet PO (21:37)
[2022-08-21] MEDS: amitriptyline 25 mg Tablet PO (21:37)
[2022-08-21] MEDS: atorvastatin 40 mg Tablet PO (21:37)
[2022-08-21] MEDS: midodrine 5 mg TABLET 10 MG PO (21:37)
[2022-08-21] MEDS: insulin glargine 100 units/1 mL 40 UNIT SUBCUT (22:09)
[2022-08-22] VITALS (8 sets, daily range): BP systolic 88–129; BP diastolic 46–73; PULSE 80–125; RESP 16–18; TEMP 36.4–36.9; O2SAT 91–96
[2022-08-22] MEDS: acetaminophen 325 mg Tablet 650 MG PO ×3 (03:28→23:55)
[2022-08-22 04:47] LABS: Hematocrit 31.4 % (42.0-52.0); Mean Corpuscular HGB Conc 31.8 g/dL (30.0-36.0); Mean Corpuscular Hemoglobin 32.7 pg (28.0-34.0); Mean Corpuscular Volume 102.6 fl (80-94); Mean Platelet Volume 8.9 fL (7.4-10.4); Platelet Count 230 10^3/cmm (130-400); Red Blood Count 3.06 10^6/uL (4.1-5.3); Red Cell Distribution Width 17.9 % (12.1-15.1); White Blood Count 13.1 10^3/uL (4.0-10.0)
[2022-08-22 05:11] LABS: Calcium 8.7 mg/dL (8.5-10.5); Carbon Dioxide 24 mmol/L (22-29); Chloride 90 mmol/L (98-107); Glucose 123 mg/dL (65-115); Osmolality Calculated 302 mOsm/kg (285-295); Sodium 132 mmol/L (136-145)
[2022-08-22 05:15] LABS: Slide Review Slide Review Perform
[2022-08-22 05:16] LABS: Absolute Eosinophils 0.7 10^3/cmm (0.0-0.7); Absolute Segmented Neutrophil 11.1 10/cmm (1.6-7.1); Eosinophils 6 %; Lymphocytes 5 %; Lymphocytes Absolute 0.7 10^3/cmm (1.2-3.4); Monocytes Absolute 0.3 10^3/cmm (0.1-0.6); Segmented Neutrophils 85 %; Total Cells Counted 100 (0-100)
[2022-08-22 05:17] LABS: Absolute Neutrophil 11.1 10^3/cmm (1.4-6.5); Platelet Estimate Normal (Normal)
[2022-08-22 05:39] LABS: Blood Urea Nitrogen 86 mg/dL (8-23)
[2022-08-22] MEDS: meropenem 500 MG in sodium chloride 0.9% (plus) 50 ML 100 MG IV ×2 (05:57→17:23)
[2022-08-22] MEDS: heparin 5,000 unit/mL INJ 1 mL 5000 UNIT SUBCUT ×2 (05:58→17:22)
--- NOTE | 2022-08-22 06:07 | PC.NURSE ---
late entry: spoke with once patient came to floor from er last night, states, no peritoneal dialysis tonight, will do in am, patient informed, verbalizes understanding.
--- NOTE | 2022-08-22 06:21 | PC.NURSE ---
Dr. Kumari notified of critical labs-BUN-86, creatnine-7.8, no new orders recieved.
[2022-08-22 08:01] LABS: Glucose Point of Care 132 mg/dL (70-110)
[2022-08-22] MEDS: midodrine 5 mg TABLET 10 MG PO ×3 (08:19→20:23)
[2022-08-22] MEDS: magnesium oxide 400 mg tablet PO (08:19)
[2022-08-22] MEDS: tamsulosin 0.4 mg Capsule PO (08:19)
[2022-08-22] MEDS: venlafaxine ER (24HR) 37.5 mg Capsule PO (08:20)
[2022-08-22] MEDS: b-complex-vitamin c Tablet 1 EACH PO (08:20)
[2022-08-22] MEDS: potassium chloride ER 20 mEq Tablet 40 MEQ PO (08:20)
[2022-08-22] MEDS: calcium carbonate 500 mg Chew Tablet PO ×4 (08:20→20:23)
[2022-08-22] MEDS: aspirin 81 mg EC Tablet PO (08:20)
[2022-08-22] MEDS: FUROsemide 40 mg Tablet 80 MG PO ×2 (08:20→17:23)
[2022-08-22] MEDS: pantoprazole DR 40 mg Tablet PO (08:21)
[2022-08-22] MEDS: collagenase oint 30 gm 1 APPLIC TOPICAL (08:27)
--- NOTE | 2022-08-22 12:03 | P.CONIM_ITS ---
Providers/Reason For Consult Consulting Physician/Specialty*: kommana/Nephrology Reason for Consult*: ESRD -PD Attending Physician: Jose Puckett MD Primary Care Provider: Tim Vegas History of Present Illness History of Present Illness Patient is a 66-year-old male with past medical history of diabetes, end-stage renal disease on peritoneal dialysis, hypertension, morbid obesity presented to the emergency department complaining of left toe infection with surrounding c ellulitis wound started several weeks ago and has gotten worse now. In the emergency department vital signs are stable lab data significant for white count of 15,000, potassium was low at 3.1. Sodium was low at 132. Review of Systems Narrative: Other ROS negative Medications/Allergies Home Medications Medication Instructions Recorded Confirmed Last Taken Type Lactobacillus acidophilus 10 mg PO DAILY 08/08/19 08/21/22 08/21/22 History (Acidophilus capsule) allopurinol 300 mg tablet 300 mg PO BEDTIME 08/08/19 08/21/22 08/20/22 History aspirin 81 mg tablet,delayed 81 mg PO DAILY 08/08/19 08/21/22 08/21/22 History release (Adult Low Dose Aspirin) insulin aspart U-100 100 unit/mL See Rx Instructions .Route .COMPLEX 08/08/19 08/21/22 Unknown History subcutaneous solution (Novolog U-100 Insulin aspart) insulin glargine 100 unit/mL (3 40 unit SUBCUT BEDTIME 08/08/19 08/21/22 08/20/22 History mL) subcutaneous pen (Lantus Solostar U-100 Insulin) magnesium oxide 400 mg PO DAILY 08/08/19 08/21/22 08/21/22 History pantoprazole 40 mg tablet,delayed 40 mg PO DAILY 08/08/19 08/21/22 08/21/22 History release rosuvastatin 20 mg tablet 20 mg PO BEDTIME 08/08/19 08/21/22 08/20/22 History tamsulosin 0.4 mg capsule 0.4 mg PO DAILY 08/08/19 08/21/22 08/21/22 History clotrimazole 1 % topical cream See Rx Instructions .Route .COMPLEX 01/10/21 08/21/22 01/10/21 History furosemide 80 mg tablet 80 mg PO BID 01/10/21 08/21/22 08/21/22 History latanoprost 0.005 % eye drops 1 drp ophthalmic (eye) BEDTIME 01/10/21 08/21/22 08/20/22 History loperamide 2 mg tablet 2 mg PO DAILY PRN Diarrhea 01/10/21 08/21/22 01/10/21 History midodrine 5 mg tablet 10 mg PO TID 01/10/21 08/21/22 08/21/22 History amitriptyline 25 mg tablet 25 mg PO BEDTIME 02/18/22 08/21/22 08/20/22 History calcium carbonate 200 mg calcium 600 mg PO QID 02/18/22 08/21/22 08/21/22 History (500 mg) chewable tablet (Tums) cyclobenzaprine 10 mg tablet 20 mg PO BEDTIME 02/18/22 08/21/22 08/20/22 History nitroglycerin 0.4 mg sublingual 0.4 mg sublingual Q5M PRN Chest 02/18/22 Unknown History tablet (Nitrostat) Pain venlafaxine 37.5 mg 37.5 mg PO DAILY 02/18/22 08/21/22 08/21/22 History capsule,extended release 24 hr vitamin B complex with vit C-folic 1 tab PO DAILY 02/18/22 08/21/22 08/21/22 History acid 800 mcg-zinc 12.5 mg tablet (RenaPlex) gabapentin 100 mg capsule 100 mg PO DAILY PRN Pain 08/21/22 08/21/22 Unknown History gentamicin 0.1 % topical cream 1 applic topical DAILY 08/21/22 08/21/22 08/21/22 History ondansetron HCl 4 mg tablet 4 mg PO Q6H PRN Nausea 08/21/22 08/21/22 Unknown History Allergies Allergy/AdvReac Type Severity Reaction Status Date / Time cefepime Allergy Mild ALGY-Rash Verified 08/21/22 19:53 atorvastatin [From Lipitor] Allergy Rash Verified 05/03/20 11:00 cefuroxime Allergy Rash Verified 05/03/20 11:00 Current Medications Generic Name Dose Route Start Last Admin Trade Name Freq PRN Reason Stop Dose Admin Acetaminophen 650 mg 08/21/22 17:31 08/22/22 08:20 Acetaminophen 325 Mg Tablet PO 650 mg Q6H PRN Administration Mild/Mod Pain Or Temp >/= 101 Allopurinol 300 mg 08/21/22 21:00 08/21/22 21:37 Allopurinol 300 Mg Tablet PO 300 mg BEDTIME SCOOBY Administration Amitriptyline HCl 25 mg 08/21/22 21:00 08/21/22 21:37 Amitriptyline 25 Mg Tablet PO 25 mg BEDTIME SCOOBY Administration Aspirin 81 mg 08/22/22 09:00 08/22/22 08:20 Aspirin 81 Mg Ec Tablet PO 81 mg DAILY SCOOBY Administration Atorvastatin Calcium 40 mg 08/21/22 21:00 08/21/22 21:37 Atorvastatin 40 Mg Tablet PO 40 mg BEDTIME SCOOBY Administration Calcium Carbonate 500 mg 08/21/22 21:00 08/22/22 08:20 Calcium Carbonate 500 Mg Chew Tablet PO 500 mg QID SCOOBY Administration Collagenase 1 applic 08/22/22 09:00 08/22/22 08:27 Collagenase Oint 30 Gm TOPICAL 1 applic DAILY SCOOBY Administration Furosemide 80 mg 08/21/22 18:00 08/22/22 08:20 Furosemide 40 Mg Tablet PO 80 mg BID SCOOBY Administration Heparin Sodium (Porcine) 5,000 unit 08/21/22 18:30 08/22/22 05:58 Heparin 5,000 Unit/Ml Inj 1 Ml SUBCUT 5,000 unit Q12H SCOOBY Administration Meropenem 500 mg/ Sodium 50 mls @ 100 mls/hr 08/21/22 18:30 08/22/22 07:25 Chloride IV Infused Q12H [facility] Infusion Protocol Insulin Glargine 40 unit 08/21/22 21:00 08/21/22 22:09 Insulin Glargine 100 Units/1 Ml SUBCUT 40 unit BEDTIME SCOOBY Administration Insulin Human Lispro 0 unit 08/21/22 21:00 08/22/22 08:23 Insulin Lispro 100 Unit/1 Ml SUBCUT Not Given WM&BEDTIME [facility] Protocol Latanoprost 1 drop 08/21/22 21:00 08/21/22 21:40 Latanoprost 0.005% Op Soln 2.5 Ml Btl EYE-BOTH Not Given BEDTIME [facility] Magnesium Oxide 400 mg 08/22/22 09:00 08/22/22 08:19 Magnesium Oxide 400 Mg Tablet PO 400 mg DAILY SCOOBY Administration Midodrine 10 mg 08/21/22 21:00 08/22/22 08:19 Midodrine 5 Mg Tablet PO 10 mg TID SCOOBY Administration Multivitamins 1 each 08/22/22 09:00 08/22/22 08:20 I-Iipvubp-Uykxefs C Tablet PO 1 each DAILY SCOOBY Administration Pantoprazole Sodium 40 mg 08/22/22 09:00 08/22/22 08:[address] 40 Mg Tablet PO 40 mg DAILY SCOOBY Administration Tamsulosin HCl 0.4 mg 08/22/22 09:00 08/22/22 08:19 Tamsulosin 0.4 Mg Capsule PO 0.4 mg DAILY SCOOBY Administration Venlafaxine HCl 37.5 mg 08/22/22 09:00 08/22/22 08:20 Venlafaxine Er (24hr) 37.5 Mg Capsule PO 37.5 mg DAILY SCOOBY Administration PFSH Acute PFSH: Medical History Diabetes Gross hematuria History of sepsis Hydroureteronephrosis Kidney stones Peritoneal dialysis catheter in place Recurrent UTI Risk for falls Surgical History Hx of mitral valve replacement S/P tonsillectomy Family History Father Diabetes Other Cancer Social History Smoking and tobacco status: former smoker Alcohol intake: former Substance/Drug Use: never Adopted: No Caregiver/support person: No Lives independently: No Household members: spouse Marital status: Current occupational status: disabled Current gender identity: Male Vitals/I&O/Wt Last Vital Signs Temp 97.6 F 08/22/22 08:00 Pulse 108 H 08/22/22 08:00 Resp 17 08/22/22 08:00 BP 88/46 08/22/22 08:00 Pulse Ox 94 08/22/22 08:00 O2 Del Method Room Air 08/22/22 08:00 08/21/22 08/22/22 08/22/22 22:59 06:59 14:59 Intake Total 300 / 300 810 / 810 Balance 300 / 300 810 / 810 Weight last 48 hrs Weight 140.16 kg Physical Exam Narrative: Awake alert, no acute distress, HEENT, neck supple S1-S2 regular rate and rhythm per report Lungs clear to auscultation per report. Has edema lower extremities with left great toe necrosis. Data 08/22/22 04:29 08/22/22 04:29 Micro: Microbiology 08/21/22 15:07 Blood Culture - Preliminary Blood SPECIMEN COLLECTED 08/21/22 14:50 Blood Culture - Preliminary Blood SPECIMEN COLLECTED A&P Assessment and plan (1) ESRD (end stage renal disease): Plan 1. End-stage renal disease: On peritoneal dialysis at home. PD prescription: APD with 3x 1.5% dextrose solutions and 1 icodextrin bag exchangex 8 hours -For the time being will use 1x 2.5% VAC exchange tonight and reevaluate in a.m. Likely will do manual exchanges every 6 hours 2. History of hypertension: Blood pressure stable 3. Left foot ulcer seen by podiatry, on IV antibiotics 5. Anemia: Hemoglobin 10, continue to monitor 6. Hypokalemia: Potassium 3.0, replete with 40 of K. 7. Hyponatremia: Mild, sodium 132, from hypovolemia monitor Patient evaluated using audiovisual contact. Time spent 45 minutes Consult Attestations Medical Necessity Statement: per medicine Coding Level of Care Code Acute Code for [facility] Fwd Diagnoses ESRD (end stage renal disease) N18.6
[2022-08-22 12:17] LABS: Glucose Point of Care 173 mg/dL (70-110)
[2022-08-22] MEDS: insulin lispro 100 unit/1 mL SUBCUT ×3 (12:33→21:46)
--- NOTE | 2022-08-22 13:15 | P.PN_ITS ---
Subjective Subjective: Patient seen bedside this afternoon, denies any acute events overnight. 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 White count trending slowly downward, still has leukocytosis at 13.1. Patient is afebrile. He thinks that the redness at the left great toe is slightly improved. Denies any pain to the left foot. Vitals/I&O/Wt Last Vital Signs Temp 97.9 F 08/22/22 12:00 Pulse 110 H 08/22/22 12:00 Resp 18 08/22/22 12:00 BP 117/65 08/22/22 12:00 Pulse Ox 96 08/22/22 12:00 O2 Del Method Room Air 08/22/22 08:00 08/21/22 08/22/22 08/22/22 22:59 06:59 14:59 Intake Total 300 / 300 810 / 810 Balance 300 / 300 810 / 810 Weight last 48 hrs Weight 309 lb Physical Exam Narrative: Patient is alert and oriented ?3 and in no acute distress.? The following is a focused bilateral lower extremity exam.? Patient utilizing a powered scooter.? He is accompanied by his . VASCULAR: Dorsalis pedis diminished left and right foot.? Posterior tibial arteries diminished.? Capillary refill time less than 5 seconds to the distal hallux bilaterally. Calf is supple and nontender proximally and distally.? Decreased pedal hair growth bilaterally. NEUROLOGICAL: Protective sensation intact 0/10 sites, tested with [place] monofilament to bilateral feet. DERMATOLOGICAL: Grade 2 wound to the dorsal medial aspect of the left hallux interphalangeal joint with eschar at the medial aspect of the wound, the eschar is dry and stable without fluctuance.? Lateral aspect of the wound is exposed to subcutaneous tissue with epithelialized margin laterally and fibrotic base with serous drainage.? Periwound erythema to the left great toe with streaking to the level of the midfoot.? Abrasion to the dorsum of the left second toe with stable eschar, no periwound erythema, warmth or drainage from the left second toe.? Stable at car at the suspect that the right great toe and second toe without periwound erythema, warmth or drainage. MUSCULOSKELETAL: Hammertoe digits 2, 3, 4, 5 bilateral.? Hallux malleus left greater than right.? No crepitus with palpation of soft tissue to the left foot. Data 08/22/22 04:29 08/22/22 04:29 Micro: Microbiology 08/21/22 15:07 Blood Culture - Preliminary Blood SPECIMEN COLLECTED 08/21/22 14:50 Blood Culture - Preliminary Blood SPECIMEN COLLECTED A&P Assessment and plan (1) ESRD (end stage renal disease): (2) Chronic ulcer of great toe of left foot with fat layer exposed: (3) Cellulitis of left foot: (4) Peripheral arterial disease: 66-year-old diabetic male with end-stage renal disease presents with infected Villarreal grade 2 wound to the left great toe with surrounding cellulitis. X-ray left foot negative for soft tissue emphysema, negative for foreign body, negative for acute osseous erosions or destruction. Significant Mockingbird sclerosis appreciated left foot x-ray extending to the digital arteries. Clinically left great toe wound does not probe to bone WBC 15.3, ESR 24, CRP 52.7. We will order noninvasive vascular studies Wound cultures taken in the emergency department Dressing ith Betadine wet to dry in the emergency department Acute infection with cellulitis to left great toe, given diminished pedal pulses will hold off on sharp debridement, will order enzymatic debridement Santyl to be applied once daily and start empiric IV antibiotics and monitor his response clinically over the next few days. Interim update: Will require continued empiric IV antibiotics until clinical improvement is appreciated at the left great toe, patient is at high risk for loss of limb due to underlying peripheral arterial disease and comorbidities of end-stage renal disease, diabetes and poor nutritional status. Planning on continuation of IV antibiotics and monitor daily, once improvement is appreciated at the left foot would plan on discharge on oral antibiotics. Attestations Medical Necessity Statement*: Cellulitis left foot Coding Level of Care Code Acute Code for [facility] Fwd Diagnoses ESRD (end stage renal disease) N18.6 Chronic ulcer of great toe of left foot with fat layer exposed L97.522 Cellulitis of left foot L03.116 Peripheral arterial disease I73.9
--- NOTE | 2022-08-22 13:24 | USCV_ITS ---
Higinio Krishnamurthy Age: 66 Gender: M : 1955 Exam Date: 08/22/2022 15:10 Ordering Phys: Elfego Kate DPM Technologist: Grant Chakraborty [place] [facility] [place]: Diabetic Left Big Toe Ulcer RIGHT LEFT Brachial 220.00 mmHg Brachial 128.00 mmHg Pressure (mmHg) Waveform Pressure (mmHg) Waveform N/A Below Knee 220.00 [employer] 220.00 220.00 DPA 220.00 1.00 Ankle/Brachial Index 1.72 42.00 Pre-Exercise Toe Pressure 85.00 0.33 Pre-Exercise Toe/Brachial Index 0.66 FINDINGS Resting IRINA 1.0 on the right and 1.72 on the left Resting TBI 0.33 on the right and 0.66 on the left CONCLUSIONS 1. Normal resting IRINA with abnormal resting TBI of the right side, suggesting moderate peripheral artery disease possibly involving the distal vessels, on the right side. 2. Supranormal resting IRINA on the left with minimally diminished resting TBI suggesting mild peripheral artery disease possibly involving the distal vessels. Dr Edward Bass MD [facility] (Electronically Signed) Final Date: 22 August 2022 18:29 S
--- NOTE | 2022-08-22 14:32 | PC.PHAR ---
WILL GIVE VANC 1 GRAM DAILY DEPENDING ON TROUGH. TROUGH TO BE DRAWN WITH AM LABS IF BELOW 20 GIVE DOSE AT 9 AM IF ABOVE 20 NON-ADMINISTER THE DAYS DOSE
[2022-08-22] MEDS: Dianeal low Ca w/4.25% dex 2,000 mL Bag 2000 ML INTRAPERIT (16:10)
--- NOTE | 2022-08-22 16:30 | CTR_ITS ---
PROCEDURE INFORMATION: Exam: CTA Abdominal Aorta and Bilateral Lower Extremities (Run-off) With Contrast Exam date and time: 08/23/2022 1:12 AM Age: 66 years old Clinical indication: Foot pain; Prior surgery; Surgery type: Mitral valve; Patient HX: Bilateral lower extremity pain with discoloration. History of diabetes and ckd. ; Additional info: Lt lower extremity pad work up TECHNIQUE: Imaging protocol: Computed tomographic angiography of the of the abdominal aorta, pelvis and bilateral lower extremities with contrast. 3D rendering (Not supervised by radiologist): MIP and/or 3D reconstructed images were created by the technologist. Radiation optimization: All CT scans at this facility use at least one of these dose optimization techniques: automated exposure control; mA and/or kV adjustment per patient size (includes targeted exams where dose is matched to clinical indication); or iterative reconstruction. Contrast material: OMNI 350; Contrast volume: 200 ml; Contrast route: INTRAVENOUS (IV); REPORTING DATA: Count of CT and Cardiac NM exams in prior 12 months: This patient has received [address] and 0 known cardiac nuclear medicine studies in the 12 months prior to the current study. COMPARISON: CT kidney stone [id number] 02/18/2022 4:15 PM RADIATION DOSE METRICS: Total DLP (mGy-cm): 1881.19 FINDINGS: Tubes, catheters and devices: Tunneled peritoneal dialysis catheter in the left lower quadrant with unremarkable position. Aorta: No aortic aneurysm. No aortic dissection. Celiac trunk and mesenteric arteries: No occlusion or significant stenosis. Renal arteries: No occlusion or significant stenosis. Right iliac arteries: No occlusion or significant stenosis. Right femoral/popliteal arteries: No occlusion or significant stenosis of the right SFA or popliteal artery. Occlusion of intramuscular branches of the right deep femoral artery. Right infrapopliteal arteries: Right anterior tibial artery is patent. Diffuse calcified garduno with diffuse beaded mild severity stenosis. Right posterior tibial artery occlusion proximally. Diseased, patent vessel distally. Right peroneal artery occluded proximally. Patent distally but diffusely disease. Left iliac arteries: No occlusion or significant stenosis. Left femoral/popliteal arteries: No occlusion or significant stenosis. Left infrapopliteal arteries: No occlusion or significant stenosis. Lungs: Left lower lobe compressive atelectasis. Pleural spaces: Small left pleural effusion. Liver: No mass. Gallbladder and bile ducts: Unremarkable. No calcified stones. No ductal dilation. Pancreas: Unremarkable. No mass. No ductal dilation. Spleen: Normal. No splenomegaly. Adrenal glands: Normal. No mass. Kidneys and ureters: Severely atrophic renal parenchyma. Negative hydroureteronephrosis. Stomach and bowel: Unremarkable. No obstruction. No mucosal thickening. Appendix: No evidence of appendicitis. Urinary bladder: Decompressed bladder. Reproductive: Extensive scrotal wall edema. Intraperitoneal space: Small volume scattered ascites without loculation. Negative for pneumoperitoneum. Lymph nodes: No lymphadenopathy. Bones/joints: Diffuse osseous demineralization. Previous T11 compression fracture with vertebral augmentation changes. Soft tissues: Massive right inguinal hernia filled with fluid. Diffuse superficial calcifications throughout the lower extremity soft tissues. Generalized diffuse soft tissue edema throughout the lower extremities with extensive muscular atrophy. CT/CT angio abd aorta runof [id number] IMPRESSION: 1. Diffusely calcified vessels. Significant occlusive disease noted in the right lower extremity tibioperoneal arterial runoff vessels. There is a lesser severity tibioperoneal arterial runoff disease in the left lower extremity. 2. No significant arterial occlusive disease changes are identified in the aortoiliac vasculature or the femoropopliteal arterial vasculature.
--- NOTE | 2022-08-22 16:32 | PM.PN ---
Subjective Subjective: Patient was seen and examined this morning, has remained afebrile overnight, white blood cell count has slightly trended down. Medications: Medication Review Details: Generic Name Dose Route Start Last Admin Trade Name Michelle PRN Reason Stop Dose Admin Acetaminophen 650 mg 08/21/22 17:31 08/22/22 08:20 Acetaminophen 32 5 Mg Tablet PO 650 mg Q6H PRN Administration Mild/Mod Pain Or Temp >/= 101 Allopurinol 300 mg 08/21/22 21:00 08/21/22 21:37 Allopurinol 300 Mg Tablet PO 300 mg BEDTIME SCOOBY Administration Amitriptyline HCl 25 mg 08/21/22 21:00 08/21/22 21:37 Amitriptyline 25 Mg Tablet PO 25 mg BEDTIME SCOOBY Administration Aspirin 81 mg 08/22/22 09:00 08/22/22 08:20 Aspirin 81 Mg Ec Tablet PO 81 mg DAILY SCOOBY Administration Atorvastatin Calci um 40 mg 08/21/22 21:00 08/21/22 21:37 Atorvastatin 40 Mg Tablet PO 40 mg BEDTIME SCOOBY Administration Calcium Carbonate 500 mg 08/21/22 21:00 08/22/22 12:31 Calcium Carbonat e 500 Mg Chew Tabl et PO 500 mg QID SCOOBY Administration Collagenase 1 applic 08/22/22 09:00 08/22/22 08:27 Collagenase Oint 30 Gm TOPICAL 1 applic DAILY SCOOBY Administration Furosemide 80 mg 08/21/22 18:00 08/22/22 08:20 Furosemide 40 Mg Tablet PO 80 mg BID SCOOBY Administration Heparin Sodium (Po rcine) 5,000 unit 08/21/22 18:30 08/22/22 05:58 Heparin 5,000 Un it/Ml Inj 1 Ml SUBCUT 5,000 unit Q12H SCOOBY Administration Meropenem 500 mg/ Sodium 50 mls @ 100 mls/ hr 08/21/22 18:30 08/22/22 07:25 Chloride IV Infused Q12H SCOOBY Infusion Protocol Insulin Glargine 40 unit 08/21/22 21:00 08/21/22 22:09 Insulin Glargine 100 Units/1 Ml SUBCUT 40 unit BEDTIME SCOOBY Administration Insulin Human Lisp ro 0 unit 08/21/22 21:00 08/22/22 12:33 Insulin Lispro 1 00 Unit/1 Ml SUBCUT 4 unit WM&BEDTIME SCOOBY Administration Protocol Latanoprost 1 drop 08/21/22 21:00 08/21/22 21:40 Latanoprost 0.00 5% Op Soln 2.5 Ml Btl EYE-BOTH Not Given BEDTIME SCOOBY Magnesium Oxide 400 mg 08/22/22 09:00 08/22/22 08:19 Magnesium Oxide 400 Mg Tablet PO 400 mg DAILY SCOOBY Administration Midodrine 10 mg 08/21/22 21:00 08/22/22 15:30 Midodrine 5 Mg T ablet PO 10 mg TID SCOOBY Administration Multivitamins 1 each 08/22/22 09:00 08/22/22 08:20 J-Zmquisp-Rqobas n C Tablet PO 1 each DAILY SCOOBY Administration Pantoprazole Sodiu m 40 mg 08/22/22 09:00 08/22/22 08:[address] 40 Mg Tablet PO 40 mg DAILY SCOOBY Administration Tamsulosin HCl 0.4 mg 08/22/22 09:00 08/22/22 08:19 Tamsulosin 0.4 M g Capsule PO 0.4 mg DAILY SCOOBY Administration Venlafaxine HCl 37.5 mg 08/22/22 09:00 08/22/22 08:20 Venlafaxine Er ( 24hr) 37.5 Mg Caps ule PO 37.5 mg DAILY SCOOBY Administration Vitals/I&O/Wt Last Vital Signs Temp 98.2 F 08/22/22 15:30 Pulse 124 H 08/22/22 15:30 Resp 18 08/22/22 15:30 BP 101/70 08/22/22 15:30 Pulse Ox 91 08/22/22 15:30 O2 Del Method Room Air 08/22/22 08:00 08/22/22 08/22/22 08/22/22 06:59 14:59 22:59 Intake Total 810 / 810 Balance 810 / 810 Weight last 48 hrs Weight 140.16 kg Physical Exam Const: COMMON NORMALS: patient oriented x3 HENMT: COMMON NORMALS: normocephalic and atraumatic HEAD & SCALP: normocephalic and atraumatic Resp: COMMON NORMALS: clear to auscultation bilaterally EFFORT & INSPECTION: Yes symmetric chest movement AUSCULTATION: clear to auscultation bilaterally Cardio: COMMON NORMALS: regular rate, regular rhythm, S1 normal heart sound present, S2 normal heart sound present, No gallops present (Cardio), No murmurs present (Cardio), No rub (Cardio) and Peripheral pulses 2+ throughout RATE: regular rate RHYTHM: regular rhythm HEART SOUNDS: S1 normal heart sound present and S2 normal heart sound present PERIPHERAL PULSES: Peripheral pulses 2+ throughout GI: COMMON NORMALS: Normal to inspection, nondistended, normoactive bowel sounds present, Soft to palpation, non-tender, No hepatosplenomegaly present and no masses AUSCULTATION: Yes normoactive bowel sounds PALPATION: Yes Soft to palpation and Yes No hepatosplenomegaly present RECTAL EXAM: Yes deferred Extremity: NARRATIVE EXTREMITY EXAM: lt great toe dry eschar present, currently no foul-smelling discharge. Neuro: COMMON NORMALS: patient oriented x3 Data 08/22/22 04:29 08/22/22 04:29 Micro: Microbiology 08/21/22 15:07 Blood Culture - Preliminary Blood NEGATIVE TO DATE 08/21/22 14:50 Blood Culture - Preliminary Blood NEGATIVE TO DATE A&P Assessment and plan (1) Morbid obesity: (2) Diabetes: (3) Foot ulcer: (4) ESRD (end stage renal disease): Plan 66 year old male with PMH of DM,morbid obesity, ESRD on P/D came in today with c/o worseing lt feet pain, ulceration,foul smelling discharge. Assessment : lT Great toe ulcer/wound r/o possible osteomyelytis Xray lt feet showed No fracture or bone destruction.Soft tissue ulceration along the dorsum of the great toe with soft tissue edema. Follow CT of the left feet with contrast Follow-up CT angio abdominal aorta runoff: For PAD work-up. follow Blood culture Currently on broad spectrum abxs van and meropenam Pdiatry on board DM : Contniue lantus and MDSSI ESRD ON P/D : Routine nephrology consult for P/D Code Status :Full code DVT PPX: On Heparin sc Attestations Medical Necessity Statement*: Needs to be in hospital for IV antibiotic. Coding Level of Care Code Acute Code for [facility] Fwd Diagnoses Morbid obesity E66.01 Diabetes E11.9 Foot ulcer L97.509 ESRD (end stage renal disease) N18.6
[2022-08-22 17:16] LABS: Glucose Point of Care 232 mg/dL (70-110)
[2022-08-22] MEDS: atorvastatin 40 mg Tablet PO (20:26)
[2022-08-22] MEDS: latanoprost 0.005% Op Soln 2.5 mL Btl 1 DROP EYE-BOTH (20:26)
[2022-08-22] MEDS: amitriptyline 25 mg Tablet PO (20:26)
[2022-08-22] MEDS: allopurinol 300 mg Tablet PO (20:26)
[2022-08-22 20:49] LABS: Glucose Point of Care 252 mg/dL (70-110)
[2022-08-22] MEDS: insulin glargine 100 units/1 mL 40 UNIT SUBCUT (21:46)
[2022-08-23] VITALS (8 sets, daily range): BP systolic 91–123; BP diastolic 54–81; PULSE 94–136; RESP 16–18; TEMP 36.1–36.7; O2SAT 92–97
[2022-08-23] MEDS: Dianeal low Ca w/4.25% dex 2,000 mL Bag 2000 ML INTRAPERIT ×4 (00:17→23:53)
[2022-08-23] MEDS: iohexol 350 mg/mL 500 mL Btl (per mL) IV (01:50)
[2022-08-23] MEDS: meropenem 500 MG in sodium chloride 0.9% (plus) 50 ML 100 MG IV ×2 (05:55→17:43)
[2022-08-23] MEDS: heparin 5,000 unit/mL INJ 1 mL 5000 UNIT SUBCUT ×2 (05:55→17:43)
[2022-08-23 06:03] LABS: Hematocrit 31.7 % (42.0-52.0); Hemoglobin 9.8 g/dL (11.7-16.6); Mean Corpuscular HGB Conc 30.9 g/dL (30.0-36.0); Mean Corpuscular Hemoglobin 31.6 pg (28.0-34.0); Mean Corpuscular Volume 102.3 fl (80-94); Mean Platelet Volume 9.2 fL (7.4-10.4); Platelet Count 254 10^3/cmm (130-400); Red Cell Distribution Width 17.9 % (12.1-15.1); White Blood Count 14.3 10^3/uL (4.0-10.0)
[2022-08-23 06:13] LABS: Anion Gap 22.6 (5-19); Calcium 8.6 mg/dL (8.5-10.5); Carbon Dioxide 22 mmol/L (22-29); Chloride 89 mmol/L (98-107); Glucose 176 mg/dL (65-115); Osmolality Calculated 300 mOsm/kg (285-295); Potassium 3.6 mmol/L (3.5-5.1); Sodium 130 mmol/L (136-145)
[2022-08-23 06:26] LABS: Glucose Point of Care 199 mg/dL (70-110)
[2022-08-23] MEDS: acetaminophen 325 mg Tablet 650 MG PO ×2 (06:39→20:47)
[2022-08-23 06:52] LABS: Blood Urea Nitrogen 84 mg/dL (8-23)
[2022-08-23 08:27] LABS: Slide Review Slide Review Perform
[2022-08-23 08:30] LABS: Absolute Eosinophils 0.2 10^3/cmm (0.0-0.7); Absolute Neutrophil 12.3 10^3/cmm (1.4-6.5); Absolute Segmented Neutrophil 11.9 10/cmm (1.6-7.1); Band Neutrophils Absolute 0.4 10^3/cmm (0.0-1.2); Eosinophils 2 %; Lymphocytes 6 %; Lymphocytes Absolute 0.9 10^3/cmm (1.2-3.4); Monocytes Absolute 0.3 10^3/cmm (0.1-0.6); Platelet Estimate Normal (Normal); Segmented Neutrophils 83 %; Total Cells Counted 100 (0-100)
[2022-08-23 08:45] LABS: Vancomycin Trough 8.7 ug/mL (10-15)
--- NOTE | 2022-08-23 09:06 | PM.PN ---
Subjective Subjective: no new complaints Medications: Reviewed: Yes Vitals/I&O/Wt Last Vital Signs Temp 98.1 F 08/23/22 07:57 Pulse 126 H 08/23/22 07:57 Resp 16 08/23/22 07:57 BP 107/76 08/23/22 07:57 Pulse Ox 94 08/23/22 07:57 O2 Del Method Room Air 08/23/22 07:57 08/22/22 08/23/22 08/23/22 22:59 06:59 14:59 Intake Total 530 / 1340 Balance 530 / 1340 Weight last 48 hrs Weight 140.16 kg Physical Exam Narrative: Awake alert, no acute distress, HEENT, neck supple S1-S2 regular rate and rhythm per report Lungs clear to auscultation per report. Has edema lower extremities with left great toe necrosis. Data 08/23/22 05:20 08/23/22 05:20 Micro: Microbiology 08/21/22 15:07 Blood Culture - Preliminary Blood NEGATIVE TO DATE 08/21/22 14:50 Blood Culture - Preliminary Blood NEGATIVE TO DATE A&P Assessment and plan (1) ESRD (end stage renal disease): Plan 1. End-stage renal disease: On peritoneal dialysis at home. PD prescription: APD with 3x 1.5% dextrose solutions and 1 icodextrin bag exchangex 8 hours -For the time being will use 2.5% solution manual exchanges . 2. History of hypertension: Blood pressure stable 3. Left foot ulcer seen by podiatry, on IV antibiotics 5. Anemia: Hemoglobin 10, continue to monitor 6. Hypokalemia: repleted 7. Hyponatremia: Mild, sodium 130,monitor Patient evaluated using audiovisual contact. Time spent 45 minutes Attestations Medical Necessity Statement*: per medicine Coding Level of Care Code Acute Code for Chg Fwd Diagnoses ESRD (end stage renal disease) N18.6
[2022-08-23] MEDS: insulin lispro 100 unit/1 mL SUBCUT ×4 (09:20→20:48)
[2022-08-23] MEDS: b-complex-vitamin c Tablet 1 EACH PO (09:21)
[2022-08-23] MEDS: calcium carbonate 500 mg Chew Tablet PO ×4 (09:21→20:48)
[2022-08-23] MEDS: magnesium oxide 400 mg tablet PO (09:21)
[2022-08-23] MEDS: venlafaxine ER (24HR) 37.5 mg Capsule PO (09:21)
[2022-08-23] MEDS: midodrine 5 mg TABLET 10 MG PO ×3 (09:21→20:47)
[2022-08-23] MEDS: FUROsemide 40 mg Tablet 80 MG PO ×2 (09:21→17:42)
[2022-08-23] MEDS: aspirin 81 mg EC Tablet PO (09:21)
[2022-08-23] MEDS: tamsulosin 0.4 mg Capsule PO (09:21)
[2022-08-23] MEDS: pantoprazole DR 40 mg Tablet PO (09:21)
[2022-08-23] MEDS: vancomycin 1,000 MG in sodium chloride 0.9% 250 ML 250 MG IV (09:22)
--- NOTE | 2022-08-23 09:48 | PM.PN ---
Subjective Subjective: Patient seen bedside this morning. Denies any acute events overnight. Received his IRINA as well as a CT angiogram of the abdominal aorta with runoff. Has been applying Santyl once daily for the past 2 days to his left great toe. Patient has noticed increased drainage, overall the redness has been subsiding. Vitals/I&O/Wt Last Vital Signs Temp 98.1 F 08/23/22 07:57 Pulse 126 H 08/23/22 07:57 Resp 16 08/23/22 07:57 BP 107/76 08/23/22 07:57 Pulse Ox 94 08/23/22 07:57 O2 Del Method Room Air 08/23/22 07:57 08/22/22 08/23/22 08/23/22 22:59 06:59 14:59 Intake Total 530 / 1340 240 / 240 Balance 530 / 1340 240 / 240 Weight last 48 hrs Weight 309 lb Physical Exam Narrative: Patient is alert and oriented ?3 and in no acute distress.? The following is a focused bilateral lower extremity exam.? Patient utilizing a powered scooter.? He is accompanied by his . VASCULAR: Dorsalis pedis diminished left and right foot.? Posterior tibial arteries diminished.? Capillary refill time less than 5 seconds to the distal hallux bilaterally. Calf is supple and nontender proximally and distally.? Decreased pedal hair growth bilaterally. NEUROLOGICAL: Protective sensation intact 0/10 sites, tested with Bethany Roger monofilament to bilateral feet. DERMATOLOGICAL: Grade 3 wound to the dorsal medial aspect of the left hallux interphalangeal joint with eschar at the medial aspect of the wound, the eschar is dry and stable without fluctuance.? Lateral aspect of the wound is exposed to bone with serous drainage.? Periwound erythema to the left great toe with streaking to the level of the midfoot.? Abrasion to the dorsum of the left second toe with stable eschar, no periwound erythema, warmth or drainage from the left second toe.? Stable at car at the suspect that the right great toe and second toe without periwound erythema, warmth or drainage. MUSCULOSKELETAL: Hammertoe digits 2, 3, 4, 5 bilateral.? Hallux malleus left greater than right.? No crepitus with palpation of soft tissue to the left foot. Data 08/23/22 05:20 08/23/22 05:20 Micro: Microbiology 08/21/22 15:07 Blood Culture - Preliminary Blood NEGATIVE TO DATE 08/21/22 14:50 Blood Culture - Preliminary Blood NEGATIVE TO DATE A&P Assessment and plan (1) ESRD (end stage renal disease): (2) Chronic ulcer of great toe of left foot with fat layer exposed: (3) Cellulitis of left foot: (4) Peripheral arterial disease: 66-year-old diabetic male with end-stage renal disease presents with infected Villarreal grade 2 wound to the left great toe with surrounding cellulitis. Patient's wound has progressed, left great toe wound is now exposed to bone, has foul odor. Discussed treatment options moving forward for management of his left great toe infection. Discussed surgical debridement, bone biopsy, long-term antibiotics versus amputation. Patient is against any level of amputation. He is wanting to pursue limb salvage efforts. N.p.o. at midnight Surgical debridement down to bone tomorrow 08/24/2022 Recommend PICC line placement for long-term antibiotics Would appreciate infectious disease recommendations on antibiotic selection Working on home health Podiatry will follow Attestations Medical Necessity Statement*: Osteomyelitis left great toe Coding Level of Care Code Acute Code for [facility] Fwd Diagnoses ESRD (end stage renal disease) N18.6 Chronic ulcer of great toe of left foot with fat layer exposed L97.522 Cellulitis of left foot L03.116 Peripheral arterial disease I73.9
[2022-08-23] MEDS: collagenase oint 30 gm 1 APPLIC TOPICAL (11:24)
[2022-08-23 12:34] LABS: Glucose Point of Care 235 mg/dL (70-110)
--- NOTE | 2022-08-23 13:06 | PM.PN ---
Subjective Subjective: Patient was seen and examined this morning, has remained afebrile overnight, routine peritoneal dialysis has been continued. Medications: Medication Review Details: Generic Name Dose Route Start Last Admin Trade Name Michelle PRN Reason Stop Dose Admin Acetaminophen 650 mg 08/21/22 17:31 08/23/22 06:39 Acetaminophen 32 5 Mg Tablet PO 650 mg Q6H PRN Administration Mild/Mod Pain Or Temp >/= 101 Allopurinol 300 mg 08/21/22 21:00 08/22/22 20:26 Allopurinol 300 Mg Tablet PO 300 mg BEDTIME SCOOBY Administration Amitriptyline HCl 25 mg 08/21/22 21:00 08/22/22 20:26 Amitriptyline 25 Mg Tablet PO 25 mg BEDTIME SCOOBY Administration Aspirin 81 mg 08/22/22 09:00 08/23/22 09:21 Aspirin 81 Mg Ec Tablet PO 81 mg DAILY SCOOBY Administration Atorvastatin Calci um 40 mg 08/21/22 21:00 08/22/22 20:26 Atorvastatin 40 Mg Tablet PO 40 mg BEDTIME SCOOBY Administration Calcium Carbonate 500 mg 08/21/22 21:00 08/23/22 12:39 Calcium Carbonat e 500 Mg Chew Tabl et PO 500 mg QID SCOOBY Administration Collagenase 1 applic 08/22/22 09:00 08/23/22 11:24 Collagenase Oint 30 Gm TOPICAL 1 applic DAILY SCOOBY Administration Furosemide 80 mg 08/21/22 18:00 08/23/22 09:21 Furosemide 40 Mg Tablet PO 80 mg BID SCOOBY Administration Heparin Sodium (Po rcine) 5,000 unit 08/21/22 18:30 08/23/22 05:55 Heparin 5,000 Un it/Ml Inj 1 Ml SUBCUT 5,000 unit Q12H SCOOBY Administration Vancomycin HCl 1,0 00 mg/ 250 mls @ 0 mls/h r 08/23/22 09:00 08/23/22 09:22 Sodium Chloride IV 250 mls/hr Q24H SCOOBY Administration Protocol As Directed Meropenem 500 mg/ Sodium 50 mls @ 100 mls/ hr 08/21/22 18:30 08/23/22 05:55 Chloride IV 100 mls/hr Q12H SCOOBY Administration Protocol Insulin Glargine 40 unit 08/21/22 21:00 08/22/22 21:46 Insulin Glargine 100 Units/1 Ml SUBCUT 40 unit BEDTIME SCOOBY Administration Insulin Human Lisp ro 0 unit 08/21/22 21:00 08/23/22 12:39 Insulin Lispro 1 00 Unit/1 Ml SUBCUT 8 unit WM&BEDTIME SCOOBY Administration Protocol Latanoprost 1 drop 08/21/22 21:00 08/22/22 20:26 Latanoprost 0.00 5% Op Soln 2.5 Ml Btl EYE-BOTH 1 drop BEDTIME SCOOBY Administration Magnesium Oxide 400 mg 08/22/22 09:00 08/23/22 09:21 Magnesium Oxide 400 Mg Tablet PO 400 mg DAILY SCOOBY Administration Midodrine 10 mg 08/21/22 21:00 08/23/22 09:21 Midodrine 5 Mg T ablet PO 10 mg TID SCOOBY Administration Multivitamins 1 each 08/22/22 09:00 08/23/22 09:21 C-Wacfitf-Jqobfl n C Tablet PO 1 each DAILY SCOOBY Administration Pantoprazole Sodiu m 40 mg 08/22/22 09:00 08/23/22 09:[address] 40 Mg Tablet PO 40 mg DAILY SCOOBY Administration Peritoneal Dialysi s Solution 2,000 ml 08/22/22 14:30 08/23/22 09:20 Dianeal Low Ca W /4.25% Dex 2,000 M l Bag INTRAPERIT 2,000 ml Q8H SCOOBY Administration Tamsulosin HCl 0.4 mg 08/22/22 09:00 08/23/22 09:21 Tamsulosin 0.4 M g Capsule PO 0.4 mg DAILY SCOOBY Administration Venlafaxine HCl 37.5 mg 08/22/22 09:00 08/23/22 09:21 Venlafaxine Er ( 24hr) 37.5 Mg Caps ule PO 37.5 mg DAILY SCOOBY Administration Vitals/I&O/Wt Last Vital Signs Temp 97.9 F 08/23/22 11:56 Pulse 116 H 08/23/22 11:56 Resp 18 08/23/22 11:56 BP 96/54 08/23/22 11:56 Pulse Ox 92 08/23/22 11:56 O2 Del Method Room Air 08/23/22 11:56 08/22/22 08/23/22 08/23/22 22:59 06:59 14:59 Intake Total 530 / 1340 240 / 240 Balance 530 / 1340 240 / 240 Weight last 48 hrs Weight 140.16 kg Physical Exam Const: COMMON NORMALS: patient oriented x3 HENMT: COMMON NORMALS: normocephalic and atraumatic HEAD & SCALP: normocephalic and atraumatic Resp: COMMON NORMALS: clear to auscultation bilaterally EFFORT & INSPECTION: Yes symmetric chest movement AUSCULTATION: clear to auscultation bilaterally Cardio: COMMON NORMALS: regular rate, regular rhythm, S1 normal heart sound present, S2 normal heart sound present, No gallops present (Cardio), No murmurs present (Cardio), No rub (Cardio) and Peripheral pulses 2+ throughout RATE: regular rate RHYTHM: regular rhythm HEART SOUNDS: S1 normal heart sound present and S2 normal heart sound present PERIPHERAL PULSES: Peripheral pulses 2+ throughout GI: COMMON NORMALS: Normal to inspection, nondistended, normoactive bowel sounds present, Soft to palpation, non-tender, No hepatosplenomegaly present and no masses AUSCULTATION: Yes normoactive bowel sounds PALPATION: Yes Soft to palpation and Yes No hepatosplenomegaly present RECTAL EXAM: Yes deferred Extremity: COMMON NORMALS: no clubbing, cyanosis or edema and no pedal edema NARRATIVE EXTREMITY EXAM: lt great toe dry eschar present, currently no foul-smelling discharge. Neuro: COMMON NORMALS: patient oriented x3 Data 08/23/22 05:20 08/23/22 05:20 Micro: Microbiology 08/21/22 15:07 Blood Culture - Preliminary Blood NEGATIVE TO DATE 08/21/22 14:50 Blood Culture - Preliminary Blood NEGATIVE TO DATE A&P Assessment and plan (1) Morbid obesity: (2) Diabetes: (3) Foot ulcer: (4) ESRD (end stage renal disease): Plan 66 year old male with PMH of DM,morbid obesity, ESRD on P/D came in today with c/o worseing lt feet pain, ulceration,foul smelling discharge. Assessment : lT Great toe ulcer/wound r/o possible osteomyelytis Xray lt feet showed No fracture or bone destruction.Soft tissue ulceration along the dorsum of the great toe with soft tissue edema. Follow CT of the left feet with contrast CT angio abdominal aorta runoff:: . Diffusely calcified vessels. Significant occlusive disease noted in the right lower extremity tibioperoneal arterial runoff vessels. There is a lesser severity tibioperoneal arterial runoff disease in the left lower extremity.No significant arterial occlusive disease changes are identified in the aortoiliac vasculature or the femoropopliteal arterial vasculature.Generalized diffuse soft tissue edema throughout the lower extremities. Blood culture :NTD Currently on broad spectrum abxs van and meropenam Pdiatry on board: Is planning for debridement Follow postdebridement cultures, for appropriate antibiotic planning. DM : Contniue lantus and MDSSI ESRD ON P/D : Routine nephrology consult for P/D Code Status :Full code DVT PPX: On Heparin sc Attestations Medical Necessity Statement*: In hospital for IV antibiotics. Coding Level of Care Code Acute Code for [facility] Fwd Diagnoses Morbid obesity E66.01 Diabetes E11.9 Foot ulcer L97.509 ESRD (end stage renal disease) N18.6
[2022-08-23 16:53] LABS: Glucose Point of Care 173 mg/dL (70-110)
[2022-08-23 20:27] LABS: Glucose Point of Care 326 mg/dL (70-110)
[2022-08-23] MEDS: atorvastatin 40 mg Tablet PO (20:47)
[2022-08-23] MEDS: amitriptyline 25 mg Tablet PO (20:48)
[2022-08-23] MEDS: allopurinol 300 mg Tablet PO (20:48)
[2022-08-23] MEDS: latanoprost 0.005% Op Soln 2.5 mL Btl 1 DROP EYE-BOTH (20:48)
[2022-08-23] MEDS: insulin glargine 100 units/1 mL 40 UNIT SUBCUT (20:48)
--- NOTE | 2022-08-23 23:50 | PC.NURSE ---
Unable to collect UA. Patient is on PD and is not having any urine output. Will collect when/if patient voids.
[2022-08-24] VITALS (11 sets, daily range): BP systolic 81–111; BP diastolic 53–80; PULSE 109–135; RESP 16–18; TEMP 36.3–36.8; O2SAT 91–98
[2022-08-24] MEDS: meropenem 500 MG in sodium chloride 0.9% (plus) 50 ML 100 MG IV ×2 (05:15→18:22)
--- NOTE | 2022-08-24 05:23 | PC.NURSE ---
Addendum entered by Kayley White RN 08/24/22 06:44: Dr. Mejia notified during teleneprology round. Original Note: Patient's PD fluid will be drained slightly early and will not be instilled at scheduled time of 8 am due to scheduled surgery.
[2022-08-24 05:25] LABS: Basophils # 0.1 10^3/uL (0.0-0.1); Basophils % 0.7 %; Eosinophils # 0.4 10^3/uL (0.0-0.8); Hematocrit 31.8 % (42.0-52.0); Hemoglobin 9.9 g/dL (11.7-16.6); Lymphocytes % 7.7 %; Mean Corpuscular HGB Conc 31.1 g/dL (30.0-36.0); Mean Corpuscular Hemoglobin 32.5 pg (28.0-34.0); Mean Corpuscular Volume 104.3 fl (80-94); Mean Platelet Volume 9.3 fL (7.4-10.4); Monocytes # 0.9 10^3/uL (0.2-0.9); Monocytes % 6.6 %; Neutrophils # 10.37 10^3/uL (1.8-7.7); Nucleated Red Blood Cells % 0 %; Platelet Count 265 10^3/cmm (130-400); Red Blood Count 3.05 10^6/uL (4.1-5.3); Red Cell Distribution Width 18.1 % (12.1-15.1); White Blood Count 13.5 10^3/uL (4.0-10.0)
[2022-08-24 05:38] LABS: Anion Gap 21.8 (5-19); Calcium 8.8 mg/dL (8.5-10.5); Carbon Dioxide 22 mmol/L (22-29); Chloride 90 mmol/L (98-107); Glucose 187 mg/dL (65-115); Osmolality Calculated 300 mOsm/kg (285-295); Potassium 3.8 mmol/L (3.5-5.1); Sodium 130 mmol/L (136-145)
--- NOTE | 2022-08-24 05:48 | PM.PN ---
Subjective Subjective: no acute events Medications: Reviewed: Yes Vitals/I&O/Wt Last Vital Signs Temp 97.9 F 08/24/22 04:00 Pulse 122 H 08/24/22 04:00 Resp 18 08/24/22 04:00 BP 101/65 08/24/22 04:00 Pulse Ox 97 08/24/22 04:00 O2 Del Method Nasal Cannula 08/24/22 04:00 08/23/22 08/23/22 08/24/22 14:59 22:59 06:59 Intake Total 480 / 480 540 / 1020 50 / 1070 Balance 480 / 480 540 / 1020 50 / 1070 Weight last 48 hrs Weight 140.16 kg Physical Exam Narrative: Awake alert, no acute distress, HEENT, neck supple S1-S2 regular rate and rhythm per report Lungs clear to auscultation per report. Has edema lower extremities with left great toe necrosis. Data 08/24/22 04:52 08/24/22 04:52 A&P Assessment and plan (1) ESRD (end stage renal disease): Plan 1. End-stage renal disease: On peritoneal dialysis at home. PD prescription: APD with 3x 1.5% dextrose solutions and 1 icodextrin bag exchangex 8 hours -For the time being will use 2.5% solution manual exchanges q 8 hours . 2. History of hypertension: Blood pressure stable 3. Left foot ulcer seen by podiatry, on IV antibiotics, plan for debridement today 5. Anemia: Hemoglobin 10, continue to monitor 6. Hypokalemia: repleted 7. Hyponatremia: Mild, sodium 130,monitor Patient evaluated using audiovisual contact. Time spent 45 minutes Attestations Medical Necessity Statement*: per medicine Coding Level of Care Code Acute Code for Chg Fwd Diagnoses ESRD (end stage renal disease) N18.6
[2022-08-24 06:12] LABS: Vancomycin Trough 13.8 ug/mL (10-15)
[2022-08-24 06:20] LABS: Glucose Point of Care 205 mg/dL (70-110)
[2022-08-24 06:26] LABS: Blood Urea Nitrogen 84 mg/dL (8-23)
[2022-08-24] MEDS: acetaminophen 325 mg Tablet 650 MG PO ×3 (06:28→23:12)
--- NOTE | 2022-08-24 07:31 | W.PM.OPSUD ---
Surgery/Procedure H&P Update DATE OF PROCEDURE: August 24, 2022 DATE H&P PERFORMED: 08/21/22 CHANGES TO PREVIOUS DOCUMENTATION: none PLANNED PROCEDURE: Operation Date: 08/24/22 08:10 Proposed Procedures p Incision And Drainage of left foot d/t osteomyelitis(Left) - Elfego Kate DPM
--- NOTE | 2022-08-24 07:32 | P.OP_ITS ---
Operative Report Date of procedure: August 24, 2022 Pre-op diagnosis: Osteomyelitis left great toe Post-op diagnosis: Osteomyelitis left great toe Septic joint left great toe interphalangeal joint Cellulitis left foot Post-op findings: None Procedure done: Incision and debridement down to including bone cortex. CPT code 73599 Implants: Simplex P Specimens removed/disposition: Devitalized bone sent to microbiology for Gram stain and culture Surgeon: Elfego Kate D.P.M. [employer]ueling Ramp Supervisor: Boubacar Estimated blood loss: 5 No tourniquet utilized Findings: Necrotic bone of the distal phalanx and proximal phalanx with septic joint at the left great toe. Poor capillary refill to the tuft of the left great toe. Brief History: Pleasant 66-year-old insulin-dependent diabetic male presents wound to the left great toe that is progressed to a depth of bone. I discussed treatment options ranging from amputation of the left great toe versus surgical debridement, bone culture, long-term antibiotics via PICC line and local wound care. Patient is opposed to any level of amputation at this time. He is wishing to proceed with surgical and medical management of his wound. Discussed risks including but not limited to pain, bleeding, numbness, infection, ascending infection, failure to eradicate infection, loss of limb, adverse reaction to long-term antibiotics and need for further surgical intervention down the road. Patient is agreeable wishes to proceed. He has been n.p.o. since midnight. Informed consent signed by patient and myself. I initialed his left foot. Patient wishes to proceed. Procedure: Under mild sedation the patient was brought to the operating room and remained on the hospital bed in supine position. A timeout was performed. Anesthesia was then administered by the anesthesia service. Local anesthesia injected by myself consisting of 30 cc of one-to-one mixture 1% lidocaine and 0.5 sent Marcaine plain in a left Whelan block fashion. Well-padded pneumatic tourniquet was applied to the left ankle. The left ankle tourniquet was not inflated during the procedure. Left lower extremity was scrubbed, prepped and draped utilizing normal aseptic technique. Attention was directed to the medial aspect of the left great toe where a wound measuring 3.9 cm x 3 cm x 0.3 cm was appreciated. Had eschar at the medial portion of the wound and necrotic tissue with foul-smelling odor at the medial aspect of the wound and exposed hallux interphalangeal joint. Was able to visualize the proximal and distal phalanx after debridement this was noted to be of poor quality, there is necrotic bone with dark pickett and black discoloration and poor density. Incision was made down to bone of devitalized bone cortex, proximal phalanx bone was sent to microbiology for Gram stain and culture, distal phalanx bone there was necrotic was sent to pathology for review for analysis of osteomyelitis. The incision was irrigated with copious amounts of sterile saline solution. Bony deficit was packed with Simplex P with tobramycin. Patient was pursuing of limb salvage efforts at all cost preop eratively. Given intraoperative findings my recommendation will be to proceed with left hallux amputation if patient is agreeable to this during this hospitalization. The incision was dressed with sterile saline wet-to-dry, sterile 4 x 4's, Kerlix and Richard wrap. Patient tolerated the procedure and anesthesia well and was transferred to the PACU with vital signs stable. After period of postoperative monitoring he will be transferred back to the floor to continue empiric IV antibiotics. Will discuss with patient and his this morning on recommendations for left great toe amputation.
[2022-08-24] MEDS: sodium chloride 0.9% 1,000 ML 30 ML IV (07:39)
--- NOTE | 2022-08-24 08:02 | ANES.PREANE2 ---
Pre-Anesthetic Assessment Height/Weight: Height 1.8 m Weight 140.16 kg Temp Pulse Resp BP Pulse Ox O2 Del Method 97.3 F L 130 H 18 90/64 95 Room Air 08/24/22 07:34 08/24/22 07:34 08/24/22 07:34 08/24/22 07:34 08/24/22 07:34 08/24/22 07:34 Preop Diagnosis: osteomyelitis left foot Operation Date: 08/24/22 08:10 Proposed Procedures p Incision And Drainage of left foot d/t osteomyelitis(Left) - IMKE BrizuelaM Was Beta Basilio taken within 24 hours: N/A Was Clonidine taken within 24 hours: N/A Last intake: Intake Last Liquid Date 08/23/22 Last Liquid Time 22:00 Last Solid Date 08/23/22 Last Solid Time 18:00 Social No alcohol and No tobacco Airway Submandibular: within normal limits Cervical ROM: within normal limits Mallampati: Class II Dentition: full Pulmonary None reported CV/HEM Coronary Artery Disease, Hypertension and Peripheral Vascular Disease Mitral valve surgery 5 year ago Chronic Renal Failure Hepatic None reported GI Gastroesophageal Reflux Disease Metabolic Diabetes Mellitus, Hyperlipidemia and Morbid Ob[place] [facility] [place] Lower Back Pain and Weakness peripheral pain Neuropsych Anxiety Anesthetic Plan ASA status: 3 Anesthesia: MAC Risk of > 500 ml blood loss (7ml/kg in children): No Medications/Allergies Home Medications Medication Instructions Recorded Confirmed Last Taken Type Lactobacillus acidophilus 10 mg PO DAILY 08/08/19 08/21/22 08/21/22 History (Acidophilus capsule) allopurinol 300 mg tablet 300 mg PO BEDTIME 08/08/19 08/21/22 08/20/22 History aspirin 81 mg tablet,delayed 81 mg PO DAILY 08/08/19 08/21/22 08/21/22 History release (Adult Low Dose Aspirin) insulin aspart U-100 100 unit/mL See Rx Instructions .Route .COMPLEX 08/08/19 08/21/22 Unknown History subcutaneous solution (Novolog U-100 Insulin aspart) insulin glargine 100 unit/mL (3 40 unit SUBCUT BEDTIME 08/08/19 08/21/22 08/20/22 History mL) subcutaneous pen (Lantus Solostar U-100 Insulin) magnesium oxide 400 mg PO DAILY 08/08/19 08/21/22 08/21/22 History pantoprazole 40 mg tablet,delayed 40 mg PO DAILY 08/08/19 08/21/22 08/21/22 History release rosuvastatin 20 mg tablet 20 mg PO BEDTIME 08/08/19 08/21/22 08/20/22 History tamsulosin 0.4 mg capsule 0.4 mg PO DAILY 08/08/19 08/21/22 08/21/22 History clotrimazole 1 % topical cream See Rx Instructions .Route .COMPLEX 01/10/21 08/21/22 01/10/21 History furosemide 80 mg tablet 80 mg PO BID 01/10/21 08/21/22 08/21/22 History latanoprost 0.005 % eye drops 1 drp ophthalmic (eye) BEDTIME 01/10/21 08/21/22 08/20/22 History loperamide 2 mg tablet 2 mg PO DAILY PRN Diarrhea 01/10/21 08/21/22 01/10/21 History midodrine 5 mg tablet 10 mg PO TID 01/10/21 08/21/22 08/21/22 History amitriptyline 25 mg tablet 25 mg PO BEDTIME 02/18/22 08/21/22 08/20/22 History calcium carbonate 200 mg calcium 600 mg PO QID 02/18/22 08/21/22 08/21/22 History (500 mg) chewable tablet (Tums) cyclobenzaprine 10 mg tablet 20 mg PO BEDTIME 02/18/22 08/21/22 08/20/22 History nitroglycerin 0.4 mg sublingual 0.4 mg sublingual Q5M PRN Chest 02/18/22 08/21/22 Unknown History tablet (Nitrostat) Pain venlafaxine 37.5 mg 37.5 mg PO DAILY 02/18/22 08/21/22 08/21/22 History capsule,extended release 24 hr vitamin B complex with vit C-folic 1 tab PO DAILY 02/18/22 08/21/22 08/21/22 History acid 800 mcg-zinc 12.5 mg tablet (RenaPlex) gabapentin 100 mg capsule 100 mg PO DAILY PRN Pain 08/21/22 08/21/22 Unknown History gentamicin 0.1 % topical cream 1 applic topical DAILY 08/21/22 08/21/22 08/21/22 History ondansetron HCl 4 mg tablet 4 mg PO Q6H PRN Nausea 08/21/22 08/21/22 Unknown History Allergies Allergy/AdvReac Type Severity Reaction Status Date / Time cefepime Allergy Mild ALGY-Rash Verified 08/21/22 19:53 atorvastatin [From Lipitor] Allergy Rash Verified 05/03/20 11:00 cefuroxime Allergy Rash Verified 05/03/20 11:00 Current Medications Generic Name Dose Route Start Last Admin Trade Name Freq PRN Reason Stop Dose Admin Acetaminophen 650 mg 08/21/22 17:31 08/24/22 06:28 Acetaminophen 325 Mg Tablet PO 650 mg Q6H PRN Administration Mild/Mod Pain Or Temp >/= 101 Allopurinol 300 mg 08/21/22 21:00 08/23/22 20:48 Allopurinol 300 Mg Tablet PO 300 mg BEDTIME SCOOBY Administration Amitriptyline HCl 25 mg 08/21/22 21:00 08/23/22 20:48 Amitriptyline 25 Mg Tablet PO 25 mg BEDTIME SCOOBY Administration Aspirin 81 mg 08/22/22 09:00 08/23/22 09:21 Aspirin 81 Mg Ec Tablet PO 81 mg DAILY SCOOBY Administration Atorvastatin Calcium 40 mg 08/21/22 21:00 08/23/22 20:47 Atorvastatin 40 Mg Tablet PO 40 mg BEDTIME SCOOBY Administration Calcium Carbonate 500 mg 08/21/22 21:00 08/23/22 20:48 Calcium Carbonate 500 Mg Chew Tablet PO 500 mg QID SCOOBY Administration Collagenase 1 applic 08/22/22 09:00 08/23/22 11:24 Collagenase Oint 30 Gm TOPICAL 1 applic DAILY SCOOBY Administration Furosemide 80 mg 08/21/22 18:00 08/23/22 17:42 Furosemide 40 Mg Tablet PO 80 mg BID SCOOBY Administration Vancomycin HCl 1,000 mg/ 250 mls @ 0 mls/hr 08/23/22 09:00 08/23/22 19:00 Sodium Chloride IV Infused Q24H SCOOBY Infusion Protocol As Directed Meropenem 500 mg/ Sodium 50 mls @ 100 mls/hr 08/21/22 18:30 08/24/22 05:27 Chloride IV Infused Q12H SCOOBY Infusion Protocol Sodium Chloride 1,000 mls @ 30 mls/hr 08/24/22 07:30 08/24/22 07:39 Sodium Chloride 0.9% IV 08/25/22 07:29 30 mls/hr .Q24H SCOOBY Administration Insulin Glargine 40 unit 08/21/22 21:00 08/23/22 20:48 Insulin Glargine 100 Units/1 Ml SUBCUT 40 unit BEDTIME SCOOBY Administration Insulin Human Lispro 0 unit 08/21/22 21:00 08/23/22 20:48 Insulin Lispro 100 Unit/1 Ml SUBCUT 12 unit WM&BEDTIME SCOOBY Administration Protocol Latanoprost 1 drop 08/21/22 21:00 08/23/22 20:48 Latanoprost 0.005% Op Soln 2.5 Ml Btl EYE-BOTH 1 drop BEDTIME SCOOBY Administration Magnesium Oxide 400 mg 08/22/22 09:00 08/23/22 09:21 Magnesium Oxide 400 Mg Tablet PO 400 mg DAILY SCOOBY Administration Midodrine 10 mg 08/21/22 21:00 08/23/22 20:47 Midodrine 5 Mg Tablet PO 10 mg TID SCOOBY Administration Multivitamins 1 each 08/22/22 09:00 08/23/22 09:21 F-Lpignqf-Eraatcb C Tablet PO 1 each DAILY SCOOBY Administration Pantoprazole Sodium 40 mg 08/22/22 09:00 08/23/22 09:[address] 40 Mg Tablet PO 40 mg DAILY SCOOBY Administration Peritoneal Dialysis Solution 2,000 ml 08/22/22 14:30 08/23/22 23:53 Dianeal Low Ca W/4.25% Dex 2,000 Ml Bag INTRAPERIT 2,000 ml Q8H SCOOBY Administration Tamsulosin HCl 0.4 mg 08/22/22 09:00 08/23/22 09:21 Tamsulosin 0.4 Mg Capsule PO 0.4 mg DAILY SCOOBY Administration Venlafaxine HCl 37.5 mg 08/22/22 09:00 08/23/22 09:21 Venlafaxine Er (24hr) 37.5 Mg Capsule PO 37.5 mg DAILY SCOOBY Administration Additional Medication Information Generic Name Dose Route Start Last Admin Trade Name Freq PRN Reason Stop Dose Admin Acetaminophen 650 mg 08/21/22 17:31 08/23/22 06:39 Acetaminophen 325 Mg Tablet PO 650 mg Q6H PRN Administration Mild/Mod Pain Or Temp >/= 101 Allopurinol 300 mg 08/21/22 21:00 08/22/22 20:26 Allopurinol 300 Mg Tablet PO 300 mg BEDTIME SCOOBY Administration Amitriptyline HCl 25 mg 08/21/22 21:00 08/22/22 20:26 Amitriptyline 25 Mg Tablet PO 25 mg BEDTIME SCOOBY Administration Aspirin 81 mg 08/22/22 09:00 08/23/22 09:21 Aspirin 81 Mg Ec Tablet PO 81 mg DAILY SCOOBY Administration Atorvastatin Calcium 40 mg 08/21/22 21:00 08/22/22 20:26 Atorvastatin 40 Mg Tablet PO 40 mg BEDTIME SCOOBY Administration Calcium Carbonate 500 mg 08/21/22 21:00 08/23/22 12:39 Calcium Carbonate 500 Mg Chew Tablet PO 500 mg QID SCOOBY Administration Collagenase 1 applic 08/22/22 09:00 08/23/22 11:24 Collagenase Oint 30 Gm TOPICAL 1 applic DAILY SCOOBY Administration Furosemide 80 mg 08/21/22 18:00 08/23/22 09:21 Furosemide 40 Mg Tablet PO 80 mg BID SCOOBY Administration Heparin Sodium (Porcine) 5,000 unit 08/21/22 18:30 08/23/22 05:55 Heparin 5,000 Unit/Ml Inj 1 Ml SUBCUT 5,000 unit Q12H SCOOBY Administration Vancomycin HCl 1,000 mg/ 250 mls @ 0 mls/hr 08/23/22 09:00 08/23/22 09:22 Sodium Chloride IV 250 mls/hr Q24H SCOOBY Administration Protocol As Directed Meropenem 500 mg/ Sodium 50 mls @ 100 mls/hr 08/21/22 18:30 08/23/22 05:55 Chloride IV 100 mls/hr Q12H SCOOBY Administration Protocol Insulin Glargine 40 unit 08/21/22 21:00 08/22/22 21:46 Insulin Glargine 100 Units/1 Ml SUBCUT 40 unit BEDTIME SCOOBY Administration Insulin Human Lispro 0 unit 08/21/22 21:00 08/23/22 12:39 Insulin Lispro 100 Unit/1 Ml SUBCUT 8 unit WM&BEDTIME SCOOBY Administration Protocol Latanoprost 1 drop 08/21/22 21:00 08/22/22 20:26 Latanoprost 0.005% Op Soln 2.5 Ml Btl EYE-BOTH 1 drop BEDTIME SCOOBY Administration Magnesium Oxide 400 mg 08/22/22 09:00 08/23/22 09:21 Magnesium Oxide 400 Mg Tablet PO 400 mg DAILY SCOOBY Administration Midodrine 10 mg 08/21/22 21:00 08/23/22 09:21 Midodrine 5 Mg Tablet PO 10 mg TID SCOOBY Administration Multivitamins 1 each 08/22/22 09:00 08/23/22 09:21 S-Taokjmv-Mkeadoo C Tablet PO 1 each DAILY SCOOBY Administration Pantoprazole Sodium 40 mg 08/22/22 09:00 08/23/22 09:[address] 40 Mg Tablet PO 40 mg DAILY SCOOBY Administration Peritoneal Dialysis Solution 2,000 ml 08/22/22 14:30 08/23/22 09:20 Dianeal Low Ca W/4.25% Dex 2,000 Ml Bag INTRAPERIT 2,000 ml Q8H SCOOBY Administration Tamsulosin HCl 0.4 mg 08/22/22 09:00 08/23/22 09:21 Tamsulosin 0.4 Mg Capsule PO 0.4 mg DAILY SCOOBY Administration Venlafaxine HCl 37.5 mg 08/22/22 09:00 08/23/22 09:21 Venlafaxine Er (24hr) 37.5 Mg Capsule PO 37.5 mg DAILY SCOOBY Administration PFSH Anesthesia Medical History Diabetes Gross hematuria History of sepsis Hydroureteronephrosis Kidney stones Peritoneal dialysis catheter in place Recurrent UTI Risk for falls Surgical History Hx of mitral valve replacement S/P tonsillectomy Family History Father Diabetes Other Cancer Social History Smoking and tobacco status: former smoker Alcohol intake: former Substance/Drug Use: never Adopted: No Caregiver/support person: No Lives independently: No Household members: spouse Marital status: Current occupational status: disabled Current gender identity: Male Data Anesthesia 08/24/22 04:52 08/24/22 04:52 Short CBC 08/23/22 08/24/22 Range/Units 05:20 04:52 WBC 14.3 H 13.5 H (4.0-10.0) 10^3/uL Hgb 9.8 L 9.9 L (11.7-16.6) g/dL Hct 31.7 L 31.8 L (42.0-52.0) % MCV 102.3 H 104.3 H (80-94) fl Plt Count 254 265 (130-400) 10^3/cmm Neut % (Auto) 76.9 % Neut # (Auto) 10.37 H (1.8-7.7) 10^3/uL BMP 08/23/22 08/24/22 05:20 04:52 Sodium 130 L 130 L Potassium 3.6 3.8 Chloride 89 L 90 L Carbon Dioxide 22 22 BUN 84 H* 84 H* Creatinine 7.8 H* 7.8 H* Glucose 176 H 187 H Calcium 8.6 8.8 Cardiac Studies: No Data to Display
[2022-08-24 08:17] LABS: Slide Review Slide Review Perform
[2022-08-24] MEDS: lidocaine 1% INJ 20 mL INJECTION (08:28)
--- NOTE | 2022-08-24 08:41 | PC.NURSE ---
Pt arrived to PACU, awake, A&Ox3, Dressing to left foot C/D/I, left toes p/w/d, cap refill <3 seconds, able to wiggle toes. FOB elevated.
--- NOTE | 2022-08-24 08:46 | ANE.PACU2 ---
Inpatient post-anesthesia follow up: Airway intact: Yes Vital signs: Temperature 98.0 F Pulse Rate 132 Respiratory Rate 18 Blood Pressure 86/53 Pulse Oximetry 93 Oxygen Delivery Me thod [ Room Air Current Rate & Del ryan] Oxygen Delivery Me thod Room Air Oxygen Flow Rate Fraction of Inspir ed Oxygen Hydration adequate: Yes Nausea and vomiting: No Pain level: 1 Mental status: Baseline
[2022-08-24 08:54] LABS: Glucose Point of Care 173 mg/dL (70-110)
[2022-08-24] MEDS: Dianeal low Ca w/4.25% dex 2,000 mL Bag 2000 ML INTRAPERIT ×2 (10:54→19:20)
[2022-08-24 11:44] LABS: Glucose Point of Care 245 mg/dL (70-110)
[2022-08-24] MEDS: insulin lispro 100 unit/1 mL SUBCUT ×3 (11:54→21:31)
[2022-08-24] MEDS: calcium carbonate 500 mg Chew Tablet PO ×3 (11:56→20:46)
--- NOTE | 2022-08-24 12:17 | PC.SOCIAL ---
IMM Update pg 2 of IMM updated and reviewed w/ patient. Copy provided and Copy dated, initialed and placed in chart.
[2022-08-24] MEDS: midodrine 5 mg TABLET 10 MG PO ×2 (16:01→20:46)
[2022-08-24 16:48] LABS: Glucose Point of Care 217 mg/dL (70-110)
--- NOTE | 2022-08-24 16:51 | P.PN_ITS ---
Subjective Subjective: Patient was seen and examined this morning, s/p debridement. Medications: Medication Review Details: Generic Name Dose Route Start Last Admin Trade Name Freq PRN Reason Stop Dose Admin Acetaminophen 650 mg 08/21/22 17:31 08/24/22 16:04 Acetaminophen 32 5 Mg Tablet PO 650 mg Q6H PRN Administration Mild/Mod Pain Or Temp >/= 101 Allopurinol 300 mg 08/21/22 21:00 08/23/22 20:48 Allopurinol 300 Mg Tablet PO 300 mg BEDTIME SCOOBY Administration Amitriptyline HCl 25 mg 08/21/22 21:00 08/23/22 20:48 Amitriptyline 25 Mg Tablet PO 25 mg BEDTIME SCOOBY Administration Aspirin 81 mg 08/22/22 09:00 08/23/22 09:21 Aspirin 81 Mg Ec Tablet PO 81 mg DAILY SCOOBY Administration Atorvastatin Calci um 40 mg 08/21/22 21:00 08/23/22 20:47 Atorvastatin 40 Mg Tablet PO 40 mg BEDTIME SCOOBY Administration Calcium Carbonate 500 mg 08/21/22 21:00 08/24/22 16:01 Calcium Carbonat e 500 Mg Chew Tabl et PO 500 mg QID SCOOBY Administration Collagenase 1 applic 08/22/22 09:00 08/23/22 11:24 Collagenase Oint 30 Gm TOPICAL 1 applic DAILY SCOOBY Administration Furosemide 80 mg 08/21/22 18:00 08/23/22 17:42 Furosemide 40 Mg Tablet PO 80 mg BID SCOOBY Administration Vancomycin HCl 1,0 00 mg/ 250 mls @ 0 mls/h r 08/23/22 09:00 08/23/22 19:00 Sodium Chloride IV Infused Q24H SCOOBY Infusion Protocol As Directed Meropenem 500 mg/ Sodium 50 mls @ 100 mls/ hr 08/21/22 18:30 08/24/22 05:27 Chloride IV Infused Q12H SCOOBY Infusion Protocol Insulin Glargine 40 unit 08/21/22 21:00 08/23/22 20:48 Insulin Glargine 100 Units/1 Ml SUBCUT 40 unit BEDTIME SCOOBY Administration Insulin Human Lisp ro 0 unit 08/21/22 21:00 08/24/22 11:54 Insulin Lispro 1 00 Unit/1 Ml SUBCUT 8 unit WM&BEDTIME SCOOBY Administration Protocol Latanoprost 1 drop 08/21/22 21:00 08/23/22 20:48 Latanoprost 0.00 5% Op Soln 2.5 Ml Btl EYE-BOTH 1 drop BEDTIME SCOOBY Administration Magnesium Oxide 400 mg 08/22/22 09:00 08/23/22 09:21 Magnesium Oxide 400 Mg Tablet PO 400 mg DAILY SCOOBY Administration Midodrine 10 mg 08/21/22 21:00 08/24/22 16:01 Midodrine 5 Mg T ablet PO 10 mg TID SCOOBY Administration Multivitamins 1 each 08/22/22 09:00 08/23/22 09:21 L-Rzemaue-Teywxz n C Tablet PO 1 each DAILY SCOOBY Administration Pantoprazole Sodiu m 40 mg 08/22/22 09:00 08/23/22 09:[address] 40 Mg Tablet PO 40 mg DAILY SCOOBY Administration Peritoneal Dialysi s Solution 2,000 ml 08/22/22 14:30 08/24/22 10:54 Dianeal Low Ca W /4.25% Dex 2,000 M l Bag INTRAPERIT 2,000 ml Q8H SCOOBY Administration Tamsulosin HCl 0.4 mg 08/22/22 09:00 08/23/22 09:21 Tamsulosin 0.4 M g Capsule PO 0.4 mg DAILY SCOOBY Administration Venlafaxine HCl 37.5 mg 08/22/22 09:00 08/23/22 09:21 Venlafaxine Er ( 24hr) 37.5 Mg Caps ule PO 37.5 mg DAILY SCOOBY Administration Vitals/I&O/Wt Last Vital Signs Temp 97.6 F 08/24/22 15:29 Pulse 114 H 08/24/22 15:29 Resp 16 08/24/22 15:29 BP 93/65 08/24/22 15:29 Pulse Ox 93 08/24/22 15:29 O2 Del Method Room Air 08/24/22 15:29 08/24/22 08/24/22 08/24/22 06:59 14:59 22:59 Intake Total 50 / 1070 890 / 890 Output Total Balance 50 / 1070 880 / 880 Weight last 48 hrs Weight 140.16 kg Physical Exam Const: COMMON NORMALS: patient oriented x3 HENMT: COMMON NORMALS: normocephalic and atraumatic HEAD & SCALP: normocephalic and atraumatic Resp: COMMON NORMALS: clear to auscultation bilaterally EFFORT & INSPECTION: Yes symmetric chest movement AUSCULTATION: clear to auscultation bilaterally Cardio: COMMON NORMALS: regular rate, regular rhythm, S1 normal heart sound present, S2 normal heart sound present, No gallops present (Cardio), No murmurs present (Cardio), No rub (Cardio) and Peripheral pulses 2+ throughout RATE: regular rate RHYTHM: regular rhythm HEART SOUNDS: S1 normal heart sound present and S2 normal heart sound present PERIPHERAL PULSES: Peripheral pulses 2+ throughout GI: COMMON NORMALS: Normal to inspection, nondistended, normoactive bowel sounds present, Soft to palpation, non-tender, No hepatosplenomegaly present and no masses AUSCULTATION: Yes normoactive bowel sounds PALPATION: Yes Soft to palpation and Yes No hepatosplenomegaly present RECTAL EXAM: Yes deferred Extremity: COMMON NORMALS: no clubbing, cyanosis or edema and no pedal edema NARRATIVE EXTREMITY EXAM: lt great toe dry eschar present, currently no foul-smelling discharge. Neuro: COMMON NORMALS: patient oriented x3 Data 08/24/22 04:52 08/24/22 04:52 Micro: Microbiology 08/24/22 08:30 Gram Stain - Final Toe - #1 A&P Assessment and plan (1) Morbid obesity: (2) Diabetes: (3) Foot ulcer: (4) ESRD (end stage renal disease): Plan 66 year old male with PMH of DM,morbid obesity, ESRD on P/D came in today with c/o worseing lt feet pain, ulceration,foul smelling discharge. Assessment : lT Great toe ulcer/ osteomyelytis left great toe Septic joint of left great toe IPJ Xray lt feet showed No fracture or bone destruction.Soft tissue ulceration along the dorsum of the great toe with soft tissue edema. Follow CT of the left feet with contrast CT angio abdominal aorta runoff::Diffusely calcified vessels. Significant occlusive disease noted in the right lower extremity tibioperoneal arterial runoff vessels. There is a lesser severity tibioperoneal arterial runoff disease in the left lower extremity.No significant arterial occlusive disease changes are identified in the aortoiliac vasculature or the femoropopliteal arterial vasculature.Generalized diffuse soft tissue edema throughout the lower extremities. Blood culture :NTD Currently on broad spectrum abxs van and meropenam S/P: Debridement, currently podiatry is planning for amputation, based on the finding seen during debridement. Follow postdebridement cultures, for appropriate antibiotic planning. DM : Contniue lantus and MDSSI ESRD ON P/D : Routine nephrology consult for P/D Code Status :Full code DVT PPX: On Heparin sc Attestations Medical Necessity Statement*: Needs to be in hospital for IV antibiotic. Coding Level of Care Code Acute Code for [facility] Diagnoses Morbid obesity E66.01 Diabetes E11.9 Foot ulcer L97.509 ESRD (end stage renal disease) N18.6
[2022-08-24] MEDS: FUROsemide 40 mg Tablet 80 MG PO (18:22)
--- NOTE | 2022-08-24 18:35 | PC.NURSE ---
PD fluid emptied so patient could go to OR this am, patient back from OR and PD fluid installed around 1130am, bag for this dwell was weighed at 2100, bag was clear in color. At 6:45 patient PD fluid was hooked up to start emptying, will pass this information onto coming nurse to update documentation.
[2022-08-24] MEDS: atorvastatin 40 mg Tablet PO (20:46)
[2022-08-24] MEDS: allopurinol 300 mg Tablet PO (20:46)
[2022-08-24] MEDS: amitriptyline 25 mg Tablet PO (20:46)
[2022-08-24] MEDS: heparin 5,000 unit/mL INJ 1 mL 5000 UNIT SUBCUT (20:47)
--- NOTE | 2022-08-24 21:11 | PC.NURSE ---
pt stated to remove atorvastatin off allergy list. pt states he takes it at home.
[2022-08-24 21:26] LABS: Glucose Point of Care 294 mg/dL (70-110)
[2022-08-24] MEDS: latanoprost 0.005% Op Soln 2.5 mL Btl 1 DROP EYE-BOTH (21:30)
[2022-08-24] MEDS: insulin glargine 100 units/1 mL 40 UNIT SUBCUT (21:31)
[2022-08-25] VITALS (17 sets, daily range): BP systolic 81–116; BP diastolic 44–78; PULSE 108–138; RESP 15–19; TEMP 36.4–37.3; O2SAT 92–97
[2022-08-25] MEDS: Dianeal low Ca w/4.25% dex 2,000 mL Bag 2000 ML INTRAPERIT ×3 (04:01→21:40)
[2022-08-25 05:18] LABS: Vancomycin Trough 12.5 ug/mL (10-15)
[2022-08-25] MEDS: meropenem 500 MG in sodium chloride 0.9% (plus) 50 ML 100 MG IV ×2 (05:51→18:39)
[2022-08-25 06:59] LABS: Glucose Point of Care 246 mg/dL (70-110)
--- NOTE | 2022-08-25 07:11 | P.PN_ITS ---
Subjective Subjective: Patient seen bedside this morning. He is 1 day status post incision and debridement down to bone cortex left great toe secondary to osteomyelitis. Left great toe was found to have extensive necrotic bone intraoperatively and patient is consented for left great toe amputation at this time given intraoperative findings and poor prognosis. He is n.p.o. in preparation for left great toe amputation today at noon. Vitals/I&O/Wt Last Vital Signs Temp 98.7 F 08/25/22 04:00 Pulse 122 H 08/25/22 04:00 Resp 18 08/25/22 04:00 BP 107/56 08/25/22 04:00 Pulse Ox 94 08/25/22 04:00 O2 Del Method Nasal Cannula 08/25/22 04:00 O2 Flow Rate 1.5 08/24/22 20:32 08/24/22 08/25/22 08/25/22 22:59 06:59 14:59 Intake Total 410 / 1300 50 / 1350 Balance 410 / 1290 50 / 1340 Weight last 48 hrs Weight 309 lb Physical Exam 2 Narrative: Patient is alert and oriented ?3 and in no acute distress.? The following is a focused bilateral lower extremity exam.? Patient utilizing a powered scooter.? He is accompanied by his . VASCULAR: Dorsalis pedis diminished left and right foot.? Posterior tibial arteries diminished.? Capillary refill time less than 5 seconds to the distal hallux bilaterally. Calf is supple and nontender proximally and distally.? Decreased pedal hair growth bilaterally. NEUROLOGICAL: Protective sensation intact 0/10 sites, tested with De Lancey Roger monofilament to bilateral feet. DERMATOLOGICAL: Wound exposed but full-thickness wound exposed to bone of the left great toe, localized erythema to left great toe without proximal lymphangitic streaking. Stable eschar to the dorsum of the left second toe at the level of the PIPJ without erythema or purulence. Stable eschar that is partial-thickness to the dorsum of the right great toe and right second toe without erythema or drainage. MUSCULOSKELETAL: Hammertoe digits 2, 3, 4, 5 bilateral.? Hallux malleus left greater than right.? No crepitus with palpation of soft tissue to the left foot. Data 08/24/22 04:52 08/24/22 04:52 Micro: Microbiology 08/24/22 08:30 Gram Stain - Final Toe - #1 A&P Assessment and plan (1) ESRD (end stage renal disease): (2) Chronic ulcer of great toe of left foot with fat layer exposed: (3) Cellulitis of left foot: (4) Peripheral arterial disease: 66-year-old diabetic male with end-stage renal disease presents with osteomyelitis left great toe. 1 day status post incision and debridement left great toe performed 08/24/2022 Intraoperatively findings included necrotic bone that was widespread at the left distal phalanx and proximal phalanx Patient is agreeable for left hallux amputation at this time, he is scheduled for noon today N.p.o. at midnight Hold a.m. Lovenox Silicone bordered foam to the dorsum of the right great toe and second toe. Silver cell AG and silicone bordered foam to the left second toe Planning on oral antibiotics at discharge if clean margins at amputation level is appreciated. Attestations Medical Necessity Statement*: Osteomyelitis left foot Coding Level of Care Code Acute Code for [facility] Diagnoses ESRD (end stage renal disease) N18.6 Chronic ulcer of great toe of left foot with fat layer exposed L97.522 Cellulitis of left foot L03.116 Peripheral arterial disease I73.9
[2022-08-25] MEDS: venlafaxine ER (24HR) 37.5 mg Capsule PO (08:34)
[2022-08-25] MEDS: b-complex-vitamin c Tablet 1 EACH PO (08:34)
[2022-08-25] MEDS: pantoprazole DR 40 mg Tablet PO (08:34)
[2022-08-25] MEDS: midodrine 5 mg TABLET 10 MG PO ×3 (08:34→20:43)
[2022-08-25] MEDS: tamsulosin 0.4 mg Capsule PO (08:35)
[2022-08-25] MEDS: FUROsemide 40 mg Tablet 80 MG PO (08:35)
[2022-08-25] MEDS: magnesium oxide 400 mg tablet PO (08:35)
[2022-08-25] MEDS: insulin lispro 100 unit/1 mL SUBCUT ×3 (08:35→21:42)
[2022-08-25] MEDS: calcium carbonate 500 mg Chew Tablet PO ×4 (08:35→20:43)
[2022-08-25] MEDS: vancomycin 1,000 MG in sodium chloride 0.9% 250 ML 250 MG IV (08:43)
[2022-08-25 08:47] LABS: Anion Gap 21.9 (5-19); Calcium 8.9 mg/dL (8.5-10.5); Carbon Dioxide 20 mmol/L (22-29); Chloride 90 mmol/L (98-107); Glomerular Filtration Rate 6.7 mL/min (90-130); Glucose 200 mg/dL (65-115); Osmolality Calculated 296 mOsm/kg (285-295); Potassium 3.9 mmol/L (3.5-5.1); Sodium 128 mmol/L (136-145)
[2022-08-25] MEDS: collagenase oint 30 gm 1 APPLIC TOPICAL (09:47)
[2022-08-25 09:56] LABS: Blood Urea Nitrogen 82 mg/dL (8-23)
[2022-08-25 11:32] LABS: Glucose Point of Care 150 mg/dL (70-110)
--- NOTE | 2022-08-25 11:35 | P.ANESASSM_ITS ---
Pre-Anesthetic Assessment Height/Weight: Height 1.8 m Weight 140.16 kg Temp Pulse Resp BP Pulse Ox O2 Del Method O2 Flow Rate 97.5 F L 113 H 18 87/53 95 Room Air 1.5 08/25/22 11:11 08/25/22 11:11 08/25/22 11:11 08/25/22 11:11 08/25/22 11:11 08/25/22 11:11 08/25/22 08:00 Preop Diagnosis: osteomyelitis left foot Operation Date: 08/24/22 08:10 Proposed Procedures p Incision And Drainage of left foot d/t osteomyelitis(Left) - Elfego Kate DPM Operation Date: 08/25/22 12:00 Proposed Procedures p left great toe amputation(Left) - Elfego Kate DPM Familial anesthetic complications: None Was Beta Basilio taken within 24 hours: N/A Was Clonidine taken within 24 hours: N/A Last intake: Intake Last Liquid Date 08/23/22 Last Liquid Time 22:00 Last Solid Date 08/23/22 Last Solid Time 18:00 Social No alcohol and No tobacco Exam alert, oriented x 3, clear to auscultation bilaterally and regular rate & rhythm Airway Mallampati: Class IV Dentition: full CV/HEM Atrial Fibrillation, Anemia, Coronary Artery Disease, Hypertension and Peripheral Vascular Disease mitral valve repair esrd on peritoneal dialysis last performed today GI Gastroesophageal Reflux Disease Metabolic Diabetes Mellitus Anesthetic Plan ASA status: 4 Anesthesia: MAC Risk of > 500 ml blood loss (7ml/kg in children): No Medications/Allergies Home Medications Medication Instructions Recorded Confirmed Last Taken Type Lactobacillus acidophilus 10 mg PO DAILY 08/08/19 08/21/22 08/21/22 History (Acidophilus capsule) allopurinol 300 mg tablet 300 mg PO BEDTIME 08/08/19 08/21/22 08/20/22 History aspirin 81 mg tablet,delayed 81 mg PO DAILY 08/08/19 08/21/22 08/21/22 History release (Adult Low Dose Aspirin) insulin aspart U-100 100 unit/mL See Rx Instructions .Route .COMPLEX 08/08/19 08/21/22 Unknown History subcutaneous solution (Novolog U-100 Insulin aspart) insulin glargine 100 unit/mL (3 40 unit SUBCUT BEDTIME 08/08/19 08/21/22 08/20/22 History mL) subcutaneous pen (Lantus Solostar U-100 Insulin) magnesium oxide 400 mg PO DAILY 08/08/19 08/21/22 08/21/22 History pantoprazole 40 mg tablet,delayed 40 mg PO DAILY 08/08/19 08/21/22 08/21/22 History release rosuvastatin 20 mg tablet 20 mg PO BEDTIME 08/08/19 08/21/22 08/20/22 History tamsulosin 0.4 mg capsule 0.4 mg PO DAILY 08/08/19 08/21/22 08/21/22 History clotrimazole 1 % topical cream See Rx Instructions .Route .COMPLEX 01/10/21 08/21/22 01/10/21 History furosemide 80 mg tablet 80 mg PO BID 01/10/21 08/21/22 08/21/22 History latanoprost 0.005 % eye drops 1 drp ophthalmic (eye) BEDTIME 01/10/21 08/21/22 08/20/22 History loperamide 2 mg tablet 2 mg PO DAILY PRN Diarrhea 01/10/21 08/21/22 01/10/21 History midodrine 5 mg tablet 10 mg PO TID 01/10/21 08/21/22 08/21/22 History amitriptyline 25 mg tablet 25 mg PO BEDTIME 02/18/22 08/21/22 08/20/22 History calcium carbonate 200 mg calcium 600 mg PO QID 02/18/22 08/21/22 08/21/22 History (500 mg) chewable tablet (Tums) cyclobenzaprine 10 mg tablet 20 mg PO BEDTIME 02/18/22 08/21/22 08/20/22 History nitroglycerin 0.4 mg sublingual 0.4 mg sublingual Q5M PRN Chest 02/18/22 08/21/22 Unknown History tablet (Nitrostat) Pain venlafaxine 37.5 mg 37.5 mg PO DAILY 02/18/22 08/21/22 08/21/22 History capsule,extended release 24 hr vitamin B complex with vit C-folic 1 tab PO DAILY 02/18/22 08/21/22 08/21/22 History acid 800 mcg-zinc 12.5 mg tablet (RenaPlex) gabapentin 100 mg capsule 100 mg PO DAILY PRN Pain 08/21/22 08/21/22 Unknown History gentamicin 0.1 % topical cream 1 applic topical DAILY 08/21/22 08/21/22 08/21/22 History ondansetron HCl 4 mg tablet 4 mg PO Q6H PRN Nausea 08/21/22 08/21/22 Unknown History Allergies Allergy/AdvReac Type Severity Reaction Status Date / Time cefepime Allergy Mild ALGY-Rash Verified 08/21/22 19:53 cefuroxime Allergy Rash Verified 05/03/20 11:00 Current Medications Generic Name Dose Route Start Last Admin Trade Name Aydenq PRN Reason Stop Dose Admin Acetaminophen 650 mg 08/21/22 17:31 08/24/22 23:12 Acetaminophen 325 Mg Tablet PO 650 mg Q6H PRN Administration Mild/Mod Pain Or Temp >/= 101 Allopurinol 300 mg 08/21/22 21:00 08/24/22 20:46 Allopurinol 300 Mg Tablet PO 300 mg BEDTIME [facility] Administration Amitriptyline HCl 25 mg 08/21/22 21:00 08/24/22 20:46 Amitriptyline 25 Mg Tablet PO 25 mg BEDTIME SCOOBY Administration Aspirin 81 mg 08/22/22 09:00 08/25/22 07:31 Aspirin 81 Mg Ec Tablet PO Not Given DAILY [facility]OO[facility] Atorvastatin Calcium 40 mg 08/21/22 21:00 08/24/22 20:46 Atorvastatin 40 Mg Tablet PO 40 mg BEDTIME SCOOBY Administration Calcium Carbonate 500 mg 08/21/22 21:00 08/25/22 08:35 Calcium Carbonate 500 Mg Chew Tablet PO 500 mg QID SCOOBY Administration Collagenase 1 applic 08/22/22 09:00 08/25/22 09:47 Collagenase Oint 30 Gm TOPICAL 1 applic DAILY [facility] Administration Heparin Sodium (Porcine) 5,000 unit 08/24/22 08:00 08/25/22 07:15 Heparin 5,000 Unit/Ml Inj 1 Ml SUBCUT Not Given Q12H [facility] Vancomycin HCl 1,000 mg/ 250 mls @ 0 mls/hr 08/23/22 09:00 08/25/22 08:43 Sodium Chloride IV 250 mls/hr Q24H [facility] Administration Protocol As Directed Meropenem 500 mg/ Sodium 50 mls @ 100 mls/hr 08/21/22 18:30 08/25/22 06:27 Chloride IV Infused Q12H [facility] Infusion Protocol Insulin Glargine 40 unit 08/21/22 21:00 08/24/22 21:31 Insulin Glargine 100 Units/1 Ml SUBCUT 40 unit BEDTIME [facility] Administration Insulin Human Lispro 0 unit 08/21/22 21:00 08/25/22 08:35 Insulin Lispro 100 Unit/1 Ml SUBCUT 1 unit WM&BEDTIME [facility] Administration Protocol Latanoprost 1 drop 08/21/22 21:00 08/24/22 21:30 Latanoprost 0.005% Op Soln 2.5 Ml Btl EYE-BOTH 1 drop BEDTIME [facility] Administration Magnesium Oxide 400 mg 08/22/22 09:00 08/25/22 08:35 Magnesium Oxide 400 Mg Tablet PO 400 mg DAILY [facility] Administration Midodrine 10 mg 08/21/22 21:00 08/25/22 08:34 Midodrine 5 Mg Tablet PO 10 mg TID [facility] Administration Multivitamins 1 each 08/22/22 09:00 08/25/22 08:34 A-Rdoxwkj-Qvpuqcn C Tablet PO 1 each DAILY [facility] Administration Non-Formulary Medication 10 mg 08/22/22 09:00 08/25/22 09:47 Lactobacillus Acidophilus [Acidophilus] PO Not Given DAILY [facility] Pantoprazole Sodium 40 mg 08/22/22 09:00 08/25/22 08:[address] 40 Mg Tablet PO 40 mg DAILY [facility] Administration Peritoneal Dialysis Solution 2,000 ml 08/22/22 14:30 08/25/22 04:01 Dianeal Low Ca W/4.25% Dex 2,000 Ml Bag INTRAPERIT 2,000 ml Q8H [facility] Administration Tamsulosin HCl 0.4 mg 08/22/22 09:00 08/25/22 08:35 Tamsulosin 0.4 Mg Capsule PO 0.4 mg DAILY [facility] Administration Venlafaxine HCl 37.5 mg 08/22/22 09:00 08/25/22 08:34 Venlafaxine Er (24hr) 37.5 Mg Capsule PO 37.5 mg DAILY [facility] Administration Additional Medication Information Generic Name Dose Route Start Last Admin Trade Name Freq PRN Reason Stop Dose Admin Acetaminophen 650 mg 08/21/22 17:31 08/24/22 16:04 Acetaminophen 325 Mg Tablet PO 650 mg Q6H PRN Administration Mild/Mod Pain Or Temp >/= 101 Allopurinol 300 mg 08/21/22 21:00 08/23/22 20:48 Allopurinol 300 Mg Tablet PO 300 mg BEDTIME [facility] Administration Amitriptyline HCl 25 mg 08/21/22 21:00 08/23/22 20:48 Amitriptyline 25 Mg Tablet PO 25 mg BEDTIME [facility] Administration Aspirin 81 mg 08/22/22 09:00 08/23/22 09:21 Aspirin 81 Mg Ec Tablet PO 81 mg DAILY [facility] Administration Atorvastatin Calcium 40 mg 08/21/22 21:00 08/23/22 20:47 Atorvastatin 40 Mg Tablet PO 40 mg BEDTIME [facility] Administration Calcium Carbonate 500 mg 08/21/22 21:00 08/24/22 16:01 Calcium Carbonate 500 Mg Chew Tablet PO 500 mg QID [facility] Administration Collagenase 1 applic 08/22/22 09:00 08/23/22 11:24 Collagenase Oint 30 Gm TOPICAL 1 applic DAILY [facility] Administration Furosemide 80 mg 08/21/22 18:00 08/23/22 17:42 Furosemide 40 Mg Tablet PO 80 mg BID [facility] Administration Vancomycin HCl 1,000 mg/ 250 mls @ 0 mls/hr 08/23/22 09:00 08/23/22 19:00 Sodium Chloride IV Infused Q24H [facility] Infusion Protocol As Directed Meropenem 500 mg/ Sodium 50 mls @ 100 mls/hr 08/21/22 18:30 08/24/22 05:27 Chloride IV Infused Q12H [facility] Infusion Protocol Insulin Glargine 40 unit 08/21/22 21:00 08/23/22 20:48 Insulin Glargine 100 Units/1 Ml SUBCUT 40 unit BEDTIME [facility] Administration Insulin Human Lispro 0 unit 08/21/22 21:00 08/24/22 11:54 Insulin Lispro 100 Unit/1 Ml SUBCUT 8 unit WM&BEDTIME [facility] Administration Protocol Latanoprost 1 drop 08/21/22 21:00 08/23/22 20:48 Latanoprost 0.005% Op Soln 2.5 Ml Btl EYE-BOTH 1 drop BEDTIME [facility] Administration Magnesium Oxide 400 mg 08/22/22 09:00 08/23/22 09:21 Magnesium Oxide 400 Mg Tablet PO 400 mg DAILY [facility] Administration Midodrine 10 mg 08/21/22 21:00 08/24/22 16:01 Midodrine 5 Mg Tablet PO 10 mg TID [facility]OO[facility] Administration Multivitamins 1 each 08/22/22 09:00 08/23/22 09:21 G-Zumcgrd-Ublaren C Tablet PO 1 each DAILY [facility] Administration Pantoprazole Sodium 40 mg 08/22/22 09:00 08/23/22 09:[address] 40 Mg Tablet PO 40 mg DAILY [facility] Administration Peritoneal Dialysis Solution 2,000 ml 08/22/22 14:30 08/24/22 10:54 Dianeal Low Ca W/4.25% Dex 2,000 Ml Bag INTRAPERIT 2,000 ml Q8H SCOOBY Administration Tamsulosin HCl 0.4 mg 08/22/22 09:00 08/23/22 09:21 Tamsulosin 0.4 Mg Capsule PO 0.4 mg DAILY [facility] Administration Venlafaxine HCl 37.5 mg 08/22/22 09:00 08/23/22 09:21 Venlafaxine Er (24hr) 37.5 Mg Capsule PO 37.5 mg DAILY SCOOBY Administration PFSH Anesthesia Medical History Diabetes Gross hematuria History of sepsis Hydroureteronephrosis Kidney stones Peritoneal dialysis catheter in place Recurrent UTI Risk for falls Surgical History Hx of mitral valve replacement S/P tonsillectomy Family History Father Diabetes Other Cancer Social History Smoking and tobacco status: former smoker Alcohol intake: former Substance/Drug Use: never Adopted: No Caregiver/support person: No Lives independently: No Household members: spouse Marital status: Current occupational status: disabled Current gender identity: Male Data Anesthesia 08/24/22 04:52 08/25/22 04:22 Short CBC 08/24/22 Range/Units 04:52 WBC 13.5 H (4.0-10.0) 10^3/uL Hgb 9.9 L (11.7-16.6) g/dL Hct 31.8 L (42.0-52.0) % MCV 104.3 H (80-94) fl Plt Count 265 (130-400) 10^3/cmm Neut % (Auto) 82.0 % Neut # (Auto) 10.37 H (1.8-7.7) 10^3/uL BMP 08/24/22 08/25/22 04:52 04:22 Sodium 130 L 128 L Potassium 3.8 3.9 Chloride 90 L 90 L Carbon Dioxide 22 20 L BUN 84 H* 82 H* Creatinine 7.8 H* 8.1 H* Glucose 187 H 200 H Calcium 8.8 8.9 Microbiology 08/24/22 08:30 Gram Stain - Final Toe - #1 Wound Culture - Preliminary Gram Negative Rods Gram Negative Rods#2 Cardiac Studies: No Data to Display
--- NOTE | 2022-08-25 11:45 | PM.PN ---
Subjective Subjective: Patient in OR for amputation Medications: Reviewed: Yes Vitals/I&O/Wt Last Vital Signs Temp 97.5 F L 08/25/22 11:11 Pulse 113 H 08/25/22 11:11 Resp 18 08/25/22 11:11 BP 87/53 08/25/22 11:11 Pulse Ox 95 08/25/22 11:11 O2 Del Method Room Air 08/25/22 11:11 O2 Flow Rate 1.5 08/25/22 08:00 08/24/22 08/25/22 08/25/22 22:59 06:59 14:59 Intake Total 410 / 1300 50 / 1350 Output Total 2600 / 2600 Balance 410 / 1290 50 / 1340 -2600 / -2600 Physical Exam Narrative: Deferred Data 08/24/22 04:52 08/25/22 04:22 Micro: Microbiology 08/24/22 08:30 Gram Stain - Final Toe - #1 Wound Culture - Preliminary Gram Negative Rods Gram Negative Rods#2 A&P Assessment and plan (1) ESRD (end stage renal disease): Plan 1. End-stage renal disease: On peritoneal dialysis at home. PD prescription: APD with 3x 1.5% dextrose solutions and 1 icodextrin bag exchangex 8 hours -For the time being will use 2.5% solution manual exchanges q 8 hours . 2. History of hypertension: Blood pressure stable 3. Left foot ulcer seen by podiatry, on IV antibiotics, plan for a toe amputation 5. Anemia: Hemoglobin 10, continue to monitor 6. Hypokalemia: repleted 7. Hyponatremia: Mild, sodium 128,monitor Patient evaluated using audiovisual contact. Time spent 45 minutes Attestations Medical Necessity Statement*: per medicine Coding Level of Care Code Acute Code for Chg Fwd Diagnoses ESRD (end stage renal disease) N18.6
--- NOTE | 2022-08-25 11:58 | W.PM.OPSUD ---
Surgery/Procedure H&P Update DATE OF PROCEDURE: August 25, 2022 DATE H&P PERFORMED: 08/21/22 CHANGES TO PREVIOUS DOCUMENTATION: none PREOP DIAGNOSIS: osteomyelitis left foot PLANNED PROCEDURE: Operation Date: 08/24/22 08:10 Proposed Procedures p Incision And Drainage of left foot d/t osteomyelitis(Left) - Elfego Kate DPM Operation Date: 08/25/22 12:00 Proposed Procedures p left great toe amputation(Left) - Elfego Kate DPM
[2022-08-25] MEDS: sodium chloride 0.9% 1,000 ML 30 ML IV (12:00)
--- NOTE | 2022-08-25 12:02 | PM.OP ---
Operative Report Date of procedure: August 25, 2022 Pre-op diagnosis: Preop Diagnosis osteomyelitis left foot Osteomyelitis left great toe Post-op diagnosis: Osteomyelitis left great toe Procedure done: Left great toe amputation. CPT code 89513 Implants: 4-0 nylon Specimens removed/disposition: None Pathology: Left great toe sent to pathology for permanent Surgeon: Elfego Kate D.P.M. Ball Sorter: Milagro Estimated blood loss: 10 17 IV fluids: 0 Urine output: 0 Complications: None Brief History: Patient is a pleasant 66-year-old insulin-dependent diabetic male, well controlled. End-stage renal disease with peritoneal dialysis. Presents after having injured his left and right foot, his feet slid into the wall when utilizing a Giovanni lift at home. Sustained wounds to the great toe and second toe both left and right, left is more severe. He had a progression of redness, foul-smelling drainage and worsening wound of the left great toe. He is 1 day status post incision and debridement with bone culture taken, was found to have necrotic bone both at the proximal and distal phalanx of the left great toe during debridement. Patient was initially opposed to any level of amputation. Given intraoperative findings during debridement he is agreeable to proceed with a potentially more curative level of amputation at the left first metatarsal phalangeal joint. Risks include but are not limited to pain, bleeding, numbness, infection, surgical site dehiscence, transfer pressure and transfer lesions, ascending infection higher up into the foot and leg necessitating a higher level of amputation and potential need for IV antibiotics and wound care therapies moving forward. Patient has been n.p.o. since midnight. Informed consent signed by patient and myself. I initialed the patient's left leg, no guarantees written, expressed or implied. Patient wishes to proceed. Procedure: Under mild sedation the patient was brought to the operating room and remained on the [facility] in supine position. A timeout was performed. Anesthesia was then administered by the anesthesia service. Local anesthesia was injected by myself consisting of 20 cc of one-to-one mixture 1% lidocaine and 0.5 sent Marcaine plain in a left Whelan block fashion. Well-padded pneumatic tourniquet was applied to the left ankle. The left lower extremity was scrubbed, prepped and draped utilizing normal aseptic technique. Left leg was elevated and tourniquet inflated to 250 mmHg. Attention was directed to the left great toe, proximal phalanx and distal phalanx remaining was noted to be necrotic. A tennis racquet incision was planned out to encompass the first metatarsal phalangeal joint maintaining skin flaps that were at a viable margin. Circumferentially the left great toe is disarticulated full-thickness through skin down through joint utilizing pickups and a #15 blade at the metatarsal phalangeal joint and the left great toe was passed from the operative field this will be sent to pathology for permanent. The incision was irrigated with copious amounts of sterile saline solution, all devitalized tissue was debrided sharply. No further necrotic tissue appreciated intraoperatively. Operative site was irrigated with copious amounts of Staticin solution and closed with 4-0 nylon, skin margins came together nicely without excessive tension. Of note the first metatarsal head appeared to be viable without signs of infection. The incision was dressed with Adaptic, sterile 4 x 4's, Kerlix and Coban. Tourniquet was deflated and a hyperemic response was noted to the remaining digits of the left foot. Patient tolerated the procedure and anesthesia well was transferred to the PACU with vital signs stable and vascular status intact. Following a period of postoperative monitoring he will be transferred back to the floor.
[2022-08-25 12:06] LABS: Iron 70 ug/dL (59-158); Percent Saturation 47.6 % (20-50); Total Iron Binding Capacity 147 mcg/dl; Unsaturated Iron Binding 77 ug/dL (112-347)
[2022-08-25 12:22] LABS: Vitamin B12 982 pg/mL (232-1245)
[2022-08-25] MEDS: lidocaine 1% INJ 10 mL (per mL) 20 ML (12:42)
[2022-08-25 12:49] LABS: Thyroid Stimulating Hormone 2.81 uIU/mL (0.27-4.20)
--- NOTE | 2022-08-25 13:07 | PC.NURSE ---
Pt arrived to PACU, O2 at 6L/min via simple mask. Dressing to left foot C/D/I, left toes p/w/d, cap refill <3 seconds, able to wiggle toes. Left foot elevated on pillows.
[2022-08-25 13:38] LABS: Folate Level > 20.0 ng/mL (4.5-32.2)
[2022-08-25] MEDS: acetaminophen 325 mg Tablet 650 MG PO ×2 (13:41→20:43)
[2022-08-25] MEDS: nystatin 100,000 unit/mL UDC 5 mL 400000 UNIT PO ×3 (13:48→20:43)
--- NOTE | 2022-08-25 13:53 | ANE.PACU2 ---
Inpatient post-anesthesia follow up: Airway intact: Yes Vital signs: Temperature 97.9 F Pulse Rate 127 Respiratory Rate 17 Blood Pressure 112/44 Pulse Oximetry 92 Oxygen Delivery Me thod [ Room Air Current Rate & Del ryan] Oxygen Delivery Me thod Room Air Oxygen Flow Rate 6 Fraction of Inspir ed Oxygen Hydration adequate: Yes Nausea and vomiting: No Pain level: 1 Mental status: Baseline
--- NOTE | 2022-08-25 13:57 | PC.NURSE ---
received patient from surgery staff at approximately 130pm. Patient is alert and oriented to perosn, place, time, and situation. BP: 104/53, SPO2: 93% on 1.5LNC, HR 125, Temp: 98.7. RIght foot capillary refill less than 3 seconds and dorsalis pedis pulse palpable. No bleeding noted from incision site through bandages.
--- NOTE | 2022-08-25 16:00 | P.PN_ITS ---
Subjective Subjective: Hospital course, labs appreciated. On examination patient seen post ambulation today. Undergoing peritoneal dialysis. Heart rate seems to be running on the higher side since admission. Patient states he has a history of atrial fibrillation though not on metoprolol because of low blood pressures. Patient is on nasal cannula. Denies any nausea, vomiting, headache. Has remained afebrile. Vitals/I&O/Wt Last Vital Signs Temp 98.7 F 08/25/22 15:00 Pulse 120 H 08/25/22 15:00 Resp 18 08/25/22 15:00 BP 102/67 08/25/22 15:00 Pulse Ox 96 08/25/22 15:00 O2 Del Method Nasal Cannula 08/25/22 15:00 O2 Flow Rate 6 08/25/22 12:58 08/25/22 08/25/22 08/25/22 06:59 14:59 22:59 Intake Total 50 / 1350 250 / 250 Output Total 2605 / 2605 Balance 50 / 1340 -2355 / -2355 Physical Exam Const: COMMON NORMALS: patient oriented x3 HENMT: COMMON NORMALS: normocephalic and atraumatic HEAD & SCALP: normocephalic and atraumatic Resp: COMMON NORMALS: clear to auscultation bilaterally EFFORT & I NSPECTION: Yes symmetric chest movement AUSCULTATION: clear to auscultation bilaterally Cardio: COMMON NORMALS: regular rate, regular rhythm, S1 normal heart sound present, S2 normal heart sound present, No gallops present (Cardio), No murmurs present (Cardio), No rub (Cardio) and Peripheral pulses 2+ throughout RATE: regular rate RHYTHM: regular rhythm HEART SOUNDS: S1 normal heart sound present and S2 normal heart sound present PERIPHERAL PULSES: Peripheral pulses 2+ throughout GI: COMMON NORMALS: Normal to inspection, nondistended, normoactive bowel sounds present, Soft to palpation, non-tender, No hepatosplenomegaly present and no masses AUSCULTATION: Yes normoactive bowel sounds PALPATION: Yes Soft to palpation and Yes No hepatosplenomegaly present RECTAL EXAM: Yes deferred Extremity: COMMON NORMALS: no clubbing, cyanosis or edema and no pedal edema NARRATIVE EXTREMITY EXAM: Toe surgically bandaged. Neuro: COMMON NORMALS: patient oriented x3 Data 08/24/22 04:52 08/25/22 04:42 Micro: Microbiology 04/30/23 08:30 Gram Stain - Final Toe - #1 Wound Culture - Preliminary Gram Negative Rods Gram Negative Rods#2 A&P Assessment and plan (1) Cellulitis of left foot: Appreciate podiatry recommendations. Post left great toe amputation day 0. Wound cultures so far growing 2 separate gram-negative. Follow-up cultures. Blood cultures so far negative. Check MRSA swab. For now continue with vancomycin and meropenem. On review patient has a history of cultures positive for Enterococcus and E. coli/Klebsiella in the past. (2) Chronic ulcer of great toe of left foot with fat layer exposed: (3) Atrial fibrillation: With rapid ventricular response. States was on metoprolol as an outpatient but stopped few months ago because of low blood pressures. Stat EKG. If continues to remain on RVR will plan to start on amiodarone drip. (4) Diabetes: Check A1c. Blood sugar seems to be running slightly higher. Insulin sliding scale at moderate dose protocol. Continue on home dose of Lantus 40 units nightly. (5) ESRD (end stage renal disease): Appreciate nephrology recommendations. Continue with peritoneal dialysis. (6) Hypotension: Chronic. On midodrine 10 mg 3 times daily at home. Maintain mean arterial pressure 65. Continue to monitor. (7) Peritoneal dialysis catheter in place: (8) Peripheral arterial disease: (9) Morbid obesity: Plan History of mitral valve replacement: We will check echocardiogram once heart rate better controlled. Full code. Carb consistent renal diet. Heparin for DVT prophylaxis Protonix for PUD prophylaxis. Attestations Medical Necessity Statement*: Further admission for osteomyelitis of left great toe post amputation while cultures are followed up, A-fib with RVR in a patient with history of mitral valve repair, end-stage renal disease on peritoneal dialysis and chronic hyp otension Diagnoses Cellulitis of left foot L03.116 Chronic ulcer of great toe of left foot with fat layer exposed L97.522 Atrial fibrillation I48.91 Diabetes E11.9 ESRD (end stage renal disease) N18.6 Hypotension I95.9 Peritoneal dialysis catheter in place Z99.2 Peripheral arterial disease I73.9 Morbid obesity E66.01
--- NOTE | 2022-08-25 16:29 | ECG_ITS ---
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 Measurements Intervals [place] Rate: 113 P: 0 AR: 0 QRS: 255 QRSD: 167 T: 48 QT: 371 QTc: 509 Interpretive Statements Atrial fibrillation WITH RAPID VENTRICULAR RESPONSE RIGHT AXIS DEVIATION [QRS AXIS > 100] RIGHT BUNDLE BRANCH BLOCK [120+ ms QRS DURATION, UPRIGHT V1, 40+ ms S IN I/aVL/V4/V5/V6] POSSIBLE ANTERIOR MYOCARDIAL INFARCTION , OF INDETERMINATE AGE [30 ms Q WAVE IN V3/V4, OR R < 0.2 mV IN V4] Compared to ECG 02/18/2022 21:37:36 Myocardial infarct finding still present Electronically Signed On 08-26-2022 7:04:34 CDT by Edward Bass M.D. [email or web address] ([id number]
[2022-08-25 16:49] LABS: Glucose Point of Care 186 mg/dL (70-110)
--- NOTE | 2022-08-25 18:25 | PC.NURSE ---
Late note: nurse abserved heart rate to be variable, oftentimes in the 120's - 130's. After discussing this with the patient, it was revealed to the nurse that he has been diagnosed with AFIB and until recently was treated with metoprolol. Metoprolol was stopped due to low blood pressures. This is not in his medical history. Nurse aleted DR ko and received orders for cardiac monitoring and EKG.
--- NOTE | 2022-08-25 18:27 | PC.NURSE ---
EKG reveals aflutter with rvr. Receiged orders from Dr ko to start amiodarone. Patient refuses amiodarone. States that he does not want to escalate care further. Nurse explained risks associated with aflutter/afib (blood clots, risk of clots traveling to heart, lungs, brain). Patient still refuses. Patient is mentally competent. Nurse told patient that it is his right to refuse a medications and we will respect that right, but he also can change his mind if he wishes to.
--- NOTE | 2022-08-25 18:29 | PC.NURSE ---
Dialyisate was instilled at 1415. WIll have an 8 hour dwell time. Drain at 2215.
--- NOTE | 2022-08-25 18:30 | PC.NURSE ---
Shift SUmmary: Uneventful shift. Patient went to surgery for toe amputation. No complications observed. Dressing intact. A-flutter detected, but patient refuses treatment. Dressing dry and intact. Dialysate currently dwelling at time of this note.
[2022-08-25] MEDS: heparin 5,000 unit/mL INJ 1 mL 5000 UNIT SUBCUT (20:42)
[2022-08-25] MEDS: atorvastatin 40 mg Tablet PO (20:43)
[2022-08-25] MEDS: amitriptyline 25 mg Tablet PO (20:43)
[2022-08-25] MEDS: allopurinol 300 mg Tablet PO (20:43)
[2022-08-25] MEDS: latanoprost 0.005% Op Soln 2.5 mL Btl 1 DROP EYE-BOTH (20:49)
[2022-08-25 20:51] LABS: Glucose Point of Care 191 mg/dL (70-110)
[2022-08-25] MEDS: insulin glargine 100 units/1 mL 40 UNIT SUBCUT (21:42)
[2022-08-26] MEDS: acetaminophen 325 mg Tablet 650 MG PO ×2 (03:22→10:04)
[2022-08-26 04:34] LABS: Basophils # 0.1 10^3/uL (0.0-0.1); Basophils % 0.5 %; Eosinophils # 0.6 10^3/uL (0.0-0.8); Eosinophils % 3.8 %; Hematocrit 30.1 % (42.0-52.0); Hemoglobin 9.3 g/dL (11.7-16.6); Lymphocytes # 1.1 10^3/uL (0.8-4.8); Lymphocytes % 7.2 %; Mean Corpuscular HGB Conc 30.9 g/dL (30.0-36.0); Mean Corpuscular Hemoglobin 32.1 pg (28.0-34.0); Mean Corpuscular Volume 103.8 fl (80-94); Mean Platelet Volume 9.3 fL (7.4-10.4); Monocytes # 1.1 10^3/uL (0.2-0.9); Monocytes % 7.7 %; Neutrophils # 11.27 10^3/uL (1.8-7.7); Neutrophils % 76.8 %; Nucleated Red Blood Cells % 0 %; Platelet Count 208 10^3/cmm (130-400); White Blood Count 14.7 10^3/uL (4.0-10.0)
[2022-08-26 04:42] VITALS: BP 90/59; PULSE 128; RESP 16; TEMP 36.4; O2SAT 96
[2022-08-26 04:46] LABS: Estmated Average Glucose 114; Hemoglobin A1C 5.6 % (4.0-6.0)
[2022-08-26 04:58] LABS: Alanine Aminotransferase 21 U/L (0-41); Albumin Level 2.6 g/dL (3.5-5.2); Alkaline Phosphatase 201 U/L (40-130); Anion Gap 21.2 (5-19); Aspartate Amino Transferase 21 U/L (0-40); Calcium 9.3 mg/dL (8.5-10.5); Carbon Dioxide 23 mmol/L (22-29); Chloride 91 mmol/L (98-107); Chol HDL Ratio 4.67 mg/dL (1.0-5.00); Cholesterol 126 mg/dL (0-200); Globulin 2.5 g/dL (1.3-4.6); Glomerular Filtration Rate 6.5 mL/min (90-130); Glucose 151 mg/dL (65-115); HDL Cholesterol 27 mg/dL (60-100); LDL Cholesterol Calculated 42 mg/dL (50-129); Osmolality Calculated 300 mOsm/kg (285-295); Potassium 4.2 mmol/L (3.5-5.1); Sodium 131 mmol/L (136-145); Total Bilirubin 0.2 mg/dL (0.15-1.2); Total Protein 5.1 g/dL (6.6-8.7); Triglycerides 284 mg/dL (0-150); VLDL Cholestrol Calculation 57 mg/dL (0-30); Vancomycin Trough 16.8 ug/mL (10-15)
[2022-08-26 05:09] LABS: Blood Urea Nitrogen 83 mg/dL (8-23)
[2022-08-26 05:34] LABS: Glucose Point of Care 121 mg/dL (70-110)
[2022-08-26] MEDS: meropenem 500 MG in sodium chloride 0.9% (plus) 50 ML 100 MG IV (05:38)
[2022-08-26] MEDS: Dianeal low Ca w/4.25% dex 2,000 mL Bag 2000 ML INTRAPERIT ×2 (05:39→14:06)
--- NOTE | 2022-08-26 05:48 | PC.PHAR ---
Vancomycin Trough 16.8 5/2 am labs. Ok to give dose of Vancomycin at 9am. Will continue to monitor Thank you, Hannah Johnson [facility]
[2022-08-26 06:35] LABS: Glucose Point of Care 193 mg/dL (70-110)
[2022-08-26 07:42] VITALS: BP 107/66; PULSE 129; RESP 18; TEMP 36.4; O2SAT 94
--- NOTE | 2022-08-26 07:53 | PM.PN ---
Subjective Subjective: Patient seen bedside this morning. He is 1 day status post left great toe amputation secondary to osteomyelitis. Postoperative dressings are clean and dry, no strikethrough bleeding. He endorses minor tenderness to the left foot operative site. He is tolerating regular diet. Denies any acute events overnight. Vitals/I&O/Wt Last Vital Signs Temp 97.6 F 08/26/22 07:42 Pulse 129 H 08/26/22 07:42 Resp 18 08/26/22 07:42 BP 107/66 08/26/22 07:42 Pulse Ox 94 08/26/22 07:42 O2 Del Method Nasal Cannula 08/26/22 07:42 O2 Flow Rate 2 08/25/22 20:00 08/25/22 08/26/22 08/26/22 22:59 06:59 14:59 Intake Total 2940 / 3190 650 / 3840 Balance 2940 / 585 650 / 1235 Physical Exam Narrative: Patient is alert and oriented ?3 and in no acute distress.? The following is a focused bilateral lower extremity exam.? Patient utilizing a powered scooter.? He is accompanied by his . VASCULAR: Dorsalis pedis diminished left and right foot.? Posterior tibial arteries diminished.? Capillary refill time less than 5 seconds to the distal hallux bilaterally. Calf is supple and nontender proximally and distally.? Decreased pedal hair growth bilaterally. NEUROLOGICAL: Protective sensation intact 0/10 sites, tested with [place] monofilament to bilateral feet. DERMATOLOGICAL: Incision site at the left great toe amputation is well coapted with sutures intact, pink skin margins without erythema, no drainage, no dehiscence, resolved erythema to the left foot. Stable eschar to the dorsum of the left second toe at the level of the PIPJ without erythema or purulence. Stable eschar that is partial-thickness to the dorsum of the right great toe and right second toe without erythema or drainage. MUSCULOSKELETAL: Hammertoe digits 2, 3, 4, 5 bilateral.? No crepitus with palpation of soft tissue to the left foot. Status post left great toe amputation. Data 08/26/22 03:58 08/26/22 03:58 Micro: Microbiology 08/24/22 08:30 Gram Stain - Final Toe - #1 Wound Culture - Preliminary Gram Negative Rods Gram Negative Rods#2 A&P Assessment and plan (1) ESRD (end stage renal disease): (2) Chronic ulcer of great toe of left foot with fat layer exposed: (3) Cellulitis of left foot: (4) Peripheral arterial disease: 66-year-old diabetic male with end-stage renal disease presents with osteomyelitis left great toe. 1 day status post left hallux amputation secondary to osteomyelitis. Clean margins appreciated intraoperatively. Fitted with Darco shoe by [employer] today, left foot. Silver cell AG to the left second toe Surgical dressing was changed at the left hallux amputation site, and incision is clean and intact without erythema, purulence or dehiscence. Patient okay for discharge from podiatry standpoint Recommend 2 weeks of oral antibiotics with extended coverage on discharge, appreciate hospitalist recommendation on this. Would consider additional coverage for anaerobes. Cultures are finalizing. Infection is polymicrobial. We will follow-up next Thursday in podiatry clinic 2:30 PM. Attestations Medical Necessity Statement*: Osteomyelitis left foot Coding Level of Care Code Acute Code for [facility] Diagnoses ESRD (end stage renal disease) N18.6 Chronic ulcer of great toe of left foot with fat layer exposed L97.522 Cellulitis of left foot L03.116 Peripheral arterial disease I73.9
[2022-08-26] MEDS: magnesium oxide 400 mg tablet PO (08:58)
[2022-08-26] MEDS: tamsulosin 0.4 mg Capsule PO (08:58)
[2022-08-26] MEDS: insulin lispro 100 unit/1 mL SUBCUT ×2 (08:58→12:39)
[2022-08-26] MEDS: calcium carbonate 500 mg Chew Tablet PO ×2 (08:59→12:39)
[2022-08-26] MEDS: nystatin 100,000 unit/mL UDC 5 mL 400000 UNIT PO ×2 (08:59→12:39)
[2022-08-26] MEDS: midodrine 5 mg TABLET 10 MG PO ×2 (08:59→14:19)
[2022-08-26] MEDS: b-complex-vitamin c Tablet 1 EACH PO (09:00)
[2022-08-26] MEDS: aspirin 81 mg EC Tablet PO (09:01)
[2022-08-26] MEDS: pantoprazole DR 40 mg Tablet PO (09:01)
[2022-08-26] MEDS: heparin 5,000 unit/mL INJ 1 mL 5000 UNIT SUBCUT (09:01)
--- NOTE | 2022-08-26 09:03 | PM.PN ---
Subjective Subjective: s/p toe amputation yesterday Medications: Reviewed: Yes Vitals/I&O/Wt Last Vital Signs Temp 97.6 F 08/26/22 07:42 Pulse 129 H 08/26/22 07:42 Resp 18 08/26/22 07:42 BP 107/66 08/26/22 07:42 Pulse Ox 94 08/26/22 07:42 O2 Del Method Nasal Cannula 08/26/22 07:42 O2 Flow Rate 2 08/25/22 20:00 08/25/22 08/26/22 08/26/22 22:59 06:59 14:59 Intake Total 2940 / 3190 650 / 3840 Balance 2940 / 585 650 / 1235 Physical Exam Narrative: awake , alert , no distress s1 s2 rrr , lungs clear per report + edema Data 08/26/22 03:58 08/26/22 03:58 Micro: Microbiology 08/24/22 08:30 Gram Stain - Final Toe - #1 Wound Culture - Preliminary Gram Negative Rods Gram Negative Rods#2 A&P Assessment and plan (1) ESRD (end stage renal disease): Plan 1. End-stage renal disease: On peritoneal dialysis at home. PD prescription: APD with 3x 1.5% dextrose solutions and 1 icodextrin bag exchangex 8 hours -For the time being will use 2.5% solution manual exchanges q 8 hours . - on Nystatin swish and swallow QID , continue this untill abx finished 2. History of hypertension: Blood pressure stable 3. Left foot ulcer seen by podiatry, on IV antibiotics, s/p toe amputation 5. Anemia: Hemoglobin 9.3 continue to monitor 6. Hypokalemia: repleted 7. Hyponatremia: Mild, sodium 128,monitor Patient evaluated using audiovisual contact. Time spent 45 minutes Attestations Medical Necessity Statement*: per medicine Coding Level of Care Code Acute Code for [facility] Diagnoses ESRD (end stage renal disease) N18.6
[2022-08-26] MEDS: venlafaxine ER (24HR) 37.5 mg Capsule PO (10:08)
[2022-08-26] MEDS: vancomycin 1,000 MG in sodium chloride 0.9% 250 ML 250 MG IV (10:08)
[2022-08-26] MEDS: lactobacillus 1 Tablet 1 TAB PO (10:13)
--- NOTE | 2022-08-26 10:41 | P.DS_ITS ---
Discharge Providers Date of Admission: 08/21/22 17:31 Date of Discharge: August 26, 2022 Attending Provider at Admission: Jose Puckett MD Attending Provider at Discharge: Jewel Haas MD Consults: Telemetry nephrology Podiatry: Dr. Kate Primary Care Provider: Tim Vegas Diagnoses at Discharge Discharge Diagnosis (1) ESRD (end stage renal disease): Status: Acute (2) Chronic ulcer of great toe of left foot with fat layer exposed: Status: Acute (3) Cellulitis of left foot: Status: Acute (4) Peripheral arterial disease: Status: Acute (5) Status post amputation: Status: Acute (6) Hypotension: Status: Acute (7) Atrial fibrillation: Status: Acute Reason for Visit Reason for Visit: [facility] sent for toe infection Hospital Course Hospital Course Higinio Krishnamurthy is a 66 year old insulin-dependent diabetic male with end-stage renal disease, undergoes peritoneal dialysis, atrial fibrillation with rapid ventricular response not on treatment because of hypotension on chronic midodrine.? He was referred to the emergency department by his primary care physician for evaluation of a infected wound to his left great toe with surrounding cellulitis.? States that the wound occurred several weeks ago, he actually slid his feet into a wall when transferring off of the toilet utilizing a Giovanni lift at home.? He sustained wounds to the top of his great toe and second toe both left and right foot.? He states that his left foot great toe has become worrisome since Thursday with increased redness and drainage.? Right foot has been healing uneventfully. Patient was admitted to the hospital further evaluation and management. Podiatry and nephrology were consulted. He remained at home peritoneal dialysis under nephrology care. Started on broad-spectrum antibiotics. Eventually on 08/24 he underwent incision and debridement of left great toe. Wound cultures grew Klebsiella and Morganella both sensitive to Levaquin. Blood cultures luz marina in negative antibiotics were tailored of accordingly. Arterial duplex was done which is consistent with peripheral arterial disease his hospital stay otherwise was unremarkable, uneventful. Blood work showed stable A1c of 5.6, LFTs being within normal limits. During hospitalization he persistently remained in atrial fibrillation with rapid ventricular response. As per patient he was in past on metoprolol which was discontinued because of hypotension. Further care plan for atrial fibrillation with amiodarone load with IV was discussed in detail the patient did not want to get IV loading dose hence has been discharged on oral taper as an outpatient within next 2 weeks. He is to continue taking amiodarone 400 mg twice daily followed by 20 mg twice daily for the 2 mg daily. He has been d ischarged on oral Levaquin for 7 more days for further healing of wound. He is to continue taking his medication as before. Physical Exam Const: COMMON NORMALS: patient oriented x3 HENMT: COMMON NORMALS: normocephalic and atraumatic HEAD & SCALP: normocephalic and atraumatic Resp: COMMON NORMALS: clear to auscultation bilaterally EFFORT & IN SPECTION: Yes symmetric chest movement AUSCULTATION: clear to auscultation bilaterally Cardio: COMMON NORMALS: regular rate, regular rhythm, S1 normal heart sound present, S2 normal heart sound present, No gallops present (Cardio), No murmurs present (Cardio), No rub (Cardio) and Peripheral pulses 2+ throughout RATE: regular rate RHYTHM: regular rhythm HEART SOUNDS: S1 normal heart sound present and S2 normal heart sound present PERIPHERAL PULSES: Peripheral pulses 2+ throughout GI: COMMON NORMALS: Normal to inspection, nondistended, normoactive bowel sounds present, Soft to palpation, non-tender, No hepatosplenomegaly present and no masses AUSCULTATION: Yes normoactive bowel sounds PALPATION: Yes Soft to palpation and Yes No hepatosplenomegaly present RECTAL EXAM: Yes deferred Extremity: COMMON NORMALS: no clubbing, cyanosis or edema and no pedal edema NARRATIVE EXTREMITY EXAM: Toe surgically bandaged. Neuro: COMMON NORMALS: patient oriented x3 Discharge Data Studies Completed and Pending Completed Studies During Hospitalization Category Date Time Status CT angio abd aorta runof 85429 Routine Cat Scan 08/22/22 16:30 Completed XR foot LT min 3V* [id number] Stat Exams 08/21/22 15:00 Completed US IRINA [CV ankle brachial index [id number]] Routine Ultrasound 08/22/22 13:24 Completed Pending at discharge Category Date Time Status Blood Culture Stat Lab 08/21/22 15:07 Results MRSA by PCR Routine Lab 08/26/22 00:54 Received Urinalysis Stat Lab 08/21/22 14:42 Uncollected Vancomycin Trough AM LABS Lab 08/27/22 04:00 Ordered Vancomycin Trough AM LABS Lab 08/28/22 04:00 Ordered Pathology: Surgical [PTH] Routine Pth 08/24/22 08:36 Received Pathology: Surgical [PTH] Routine Pth 08/25/22 12:45 Received Radiology Impressions Foot X-Ray 08/21/22 15:00 IMPRESSION: 1. No fracture or bone destruction. 2. Soft tissue ulceration along the dorsum of the great toe with soft tissue edema. 3. Pronounced demineralization of the ankle and foot. Extensive vascular calcifications noted. Aorta w/Runoff CTA 08/22/22 16:30 IMPRESSION: 1. Diffusely calcified vessels. Significant occlusive disease noted in the right lower extremity tibioperoneal arterial runoff vessels. There is a lesser severity tibioperoneal arterial runoff disease in the left lower extremity. 2. No significant arterial occlusive disease changes are identified in the aortoiliac vasculature or the femoropopliteal arterial vasculature. Microbiology 08/24/22 08:30 Toe - #1 Gram Stain - Final 08/24/22 08:30 Toe - #1 Wound Culture - Final Klebsiella oxytoca Morganella morganii 08/21/22 15:07 Blood Blood Culture - Preliminary NEGATIVE TO DATE 08/21/22 14:50 Blood Blood Culture - Preliminary NEGATIVE TO DATE Laboratory Results WBC 14.7 10^3/uL (4.0-10.0) H 08/26/22 03:58 RBC 2.90 10^6/uL (4.1-5.3) L 08/26/22 03:58 Hgb 9.3 g/dL (11.7-16.6) L 08/26/22 03:58 Hct 30.1 % (42.0-52.0) L 08/26/22 03:58 MCV 103.8 fl (80-94) H 08/26/22 03:58 MCH 32.1 pg (28.0-34.0) 08/26/22 03:58 MCHC 30.9 g/dL (30.0-36.0) 08/26/22 03:58 RDW 18.0 % (12.1-15.1) H 08/26/22 03:58 Plt Count 208 10^3/cmm (130-400) 08/26/22 03:58 MPV 9.3 fL (7.4-10.4) 08/26/22 03:58 Neut % (Auto) 76.8 % 08/26/22 03:58 Lymph % (Auto) 7.2 % 08/26/22 03:58 [place] % (Auto) 7.7 % 08/26/22 03:58 Eos % (Auto) 3.8 % 08/26/22 03:58 Baso % (Auto) 0.5 % 08/26/22 03:58 Neut # (Auto) 11.27 10^3/uL (1.8-7.7) H 08/26/22 03:58 Lymph # (Auto) 1.1 10^3/uL (0.8-4.8) 08/26/22 03:58 [place] # (Auto) 1.1 10^3/uL (0.2-0.9) H 08/26/22 03:58 Eos # (Auto) 0.6 10^3/uL (0.0-0.8) 08/26/22 03:58 Baso # (Auto) 0.1 10^3/uL (0.0-0.1) 08/26/22 03:58 Nucleated RBC % (auto) 0 % 08/26/22 03:58 Total Counted 100 (0-100) 08/23/22 05:20 Atypical Lymphs % 0.0 % (0-5) 08/23/22 05:20 Absolute Neutrophils 12.3 10^3/cmm (1.4-6.5) H 08/23/22 05:20 Segmented Neutrophils 83 % 08/23/22 05:20 Abs Segm Neuts (Man) 11.9 10/cmm (1.6-7.1) H 08/23/22 05:20 Band Neutrophils 3.0 % 08/23/22 05:20 Abs Band Neuts (Man) 0.4 10^3/cmm (0.0-1.2) 08/23/22 05:20 Absolute Lymphocytes 0.9 10^3/cmm (1.2-3.4) L 08/23/22 05:20 Lymphocytes (Manual) 6 % 08/23/22 05:20 Monocytes (Manual) 2.0 % 08/23/22 05:20 Absolute Monocytes 0.3 10^3/cmm (0.1-0.6) 08/23/22 05:20 Eosinophils (Manual) 2 % 08/23/22 05:20 Absolute Eosinophils 0.2 10^3/cmm (0.0-0.7) 08/23/22 05:20 Basophils (Manual) 0.0 % 08/23/22 05:20 Absolute Basophils 0.0 10^3/cmm (0.0-0.2) 08/23/22 05:20 Metamyelocytes 3.0 % 08/23/22 05:20 Myelocytes 1.0 % 08/23/22 05:20 Nucleated RBCs # 0.0 /100WBC 08/26/22 03:58 Platelet Estimate Normal (Normal) 08/23/22 05:20 ESR 24 mm/hr (0-10) H 08/21/22 14:50 Sodium 131 mmol/L (136-145) L 08/26/22 03:58 Potassium 4.2 mmol/L (3.5-5.1) 08/26/22 03:58 Chloride 91 mmol/L (98-107) L 08/26/22 03:58 Carbon Dioxide 23 mmol/L (22-29) 08/26/22 03:58 Anion Gap 21.2 (5-19) H 08/26/22 03:58 BUN 83 mg/dL (8-23) H* 08/26/22 03:58 Creatinine 8.3 mg/dL (0.7-1.2) H* 08/26/22 03:58 GFR Calculation 6.5 mL/min (90-130) L 08/26/22 03:58 Glucose 151 mg/dL (65-115) H 08/26/22 03:58 POC Glucose 193 mg/dL (70-110) H 08/26/22 06:28 Estimat Average Glucose 114 08/26/22 03:58 Hemoglobin A1c 5.6 % (4.0-6.0) 08/26/22 03:58 Calculated Osmolality 300 mOsm/kg (285-295) H 08/26/22 03:58 Lactic Acid 2.2 mmol/L (0.5-2.2) 08/21/22 14:50 Lactic Acid (Sepsis) 1.7 mmol/L (0.5-2.2) 08/21/22 17:50 Calcium 9.3 mg/dL (8.5-10.5) 08/26/22 03:58 Iron 70 ug/dL (59-158) 08/25/22 04:42 TIBC 147 mcg/dl 08/25/22 04:42 % Saturation 47.6 % (20-50) 08/25/22 04:42 Unsat Iron Binding 77 ug/dL (112-347) L 08/25/22 04:42 Total Bilirubin 0.2 mg/dL (0.15-1.2) 08/26/22 03:58 AST 21 U/L (0-40) 08/26/22 03:58 ALT 21 U/L (0-41) 08/26/22 03:58 Alkaline Phosphatase 201 U/L (40-130) H 08/26/22 03:58 C-Reactive Protein 52.7 mg/L (0.0-4.9) H 08/21/22 14:50 Total Protein 5.1 g/dL (6.6-8.7) L 08/26/22 03:58 Albumin 2.6 g/dL (3.5-5.2) L 08/26/22 03:58 Globulin 2.5 g/dL (1.3-4.6) 08/26/22 03:58 Triglycerides 284 mg/dL (0-150) H 08/26/22 03:58 Cholesterol 126 mg/dL (0-200) 08/26/22 03:58 LDL Cholesterol, Calc 42 mg/dL (50-129) L 08/26/22 03:58 Total VLDL Cholesterol 57 mg/dL (0-30) H 08/26/22 03:58 HDL Cholesterol 27 mg/dL (60-100) L 08/26/22 03:58 Cholesterol/HDL Ratio 4.67 mg/dL (1.0-5.00) 08/26/22 03:58 Vitamin B12 982 pg/mL (232-1245) 08/25/22 04:42 Folate > 20.0 ng/mL (4.5-32.2) 08/25/22 05:20 TSH 2.81 uIU/mL (0.27-4.20) 08/25/22 04:42 Vancomycin Trough 16.8 ug/mL (10-15) H 08/26/22 03:58 Vitals Last Vital Signs Temp 97.6 F 08/26/22 07:42 Pulse 129 H 08/26/22 07:42 Resp 18 08/26/22 07:42 BP 107/66 08/26/22 07:42 Pulse Ox 94 08/26/22 07:42 O2 Del Method Nasal Cannula 08/26/22 07:42 O2 Flow Rate 2 08/25/22 20:00 Discharge Plan Discharge Patient Disposition: Home Health Service Condition: Stable Prescriptions: New levofloxacin 500 mg tablet 500 mg PO Q24H 7 Days Qty: 7 0RF amiodarone 200 mg tablet 200 mg PO DAILY Qty: 56 0RF Rx Instructions: 400 mg twice daily for next 1 week followed by 20 mg twice daily for 1 week and then 200 mg daily. Continued Lactobacillus acidophilus [Acidophilus] Capsule 10 mg PO DAILY allopurinol 300 mg tablet 300 mg PO BEDTIME Lantus Solostar U-100 Insulin 100 unit/mL (3 mL) insulin pen 40 unit SUBCUT BEDTIME insulin aspart U-100 [Novolog U-100 Insulin aspart] 100 unit/mL solution See Rx Instructions .ROUTE .COMPLEX Rx Instructions: unit subcutaneously PER SLIDING SCALE. GIVE IF BS IS ABOVE 133, HOLD IF BELOW 133 pantoprazole 40 mg tablet,delayed release (DR/EC) 40 mg PO DAILY rosuvastatin 20 mg tablet 20 mg PO BEDTIME aspirin [Adult Low Dose Aspirin] 81 mg tablet,delayed release (DR/EC) 81 mg PO DAILY tamsulosin 0.4 mg capsule 0.4 mg PO DAILY magnesium oxide 400 mg magnesium capsule 400 mg PO DAILY (DME) Standard Darco Shoe to the Left Foot 11 Mens See Rx Instructions .Route .MEDSUPPLY Qty: 1 0RF Rx Instructions: As directed J P & O- Status Post Left Great Toe Amputation latanoprost 0.005 % drops 1 drp ophthalmic (eye) BEDTIME loperamide 2 mg Tablet 2 mg PO DAILY PRN (Reason: Diarrhea) midodrine 5 mg tablet 10 mg PO TID furosemide 80 mg tablet 80 mg PO BID clotrimazole 1 % cream See Rx Instructions .ROUTE .COMPLEX Rx Instructions: WASH AND DRY AREA THOROUGHLY, AND APPLY TO AFFECTED AREA RenaPlex 800 mcg- 12.5 mg Tablet 1 tab PO DAILY cyclobenzaprine 10 mg Tablet 20 mg PO BEDTIME venlafaxine 37.5 mg capsule,extended release 24hr 37.5 mg PO DAILY amitriptyline 25 mg Tablet 25 mg PO BEDTIME calcium carbonate [Tums] 200 mg calcium (500 mg) Tablet,Chewable 600 mg PO QID nitroglycerin [Nitrostat] 0.4 mg Tablet, Sublingual 0.4 mg SUBLINGUAL Q5M PRN (Reason: Chest Pain) Rx Instructions: do not exceed 3 doses per episode ondansetron HCl 4 mg tablet 4 mg PO Q6H PRN (Reason: Nausea) gentamicin 0.1 % cream 1 applic TOPICAL DAILY gabapentin 100 mg Capsule 100 mg PO DAILY PRN (Reason: Pain) Discharge Orders: Discharge Order (Routine); Ordered 08/26/22 Ordered By: Jewel Haas Referrals: Elfego Kate DPM [Physician] - 09/01/22 9:30 am Tim Vegas [Primary Care Provider] - 08/29/22 11:00 am Discharge Diet: Regular Discharge Activity: Resume usual activity and Increase activity as tolerated Patient Instructions: Cellulitis, Amiodarone (By mouth), Levofloxacin (By mouth), Acute Wound Care (GEN), Opioid Safety Activity Restrictions/Additional Instructions: Wound care orders from Dr. Kate: Incision site at left great toe amputation -Change dressing 3 times weekly -Betadine paint directly to the incision -Adaptic -Sterile gauze -Richard wrap Left second toe wound Once daily dressing change Silver cell AG as primary dressing directly onto the wound Secure with rolled gauze and skin retention tape Patient scheduled for follow-up in podiatry clinic with Dr. Kate 09/03/2022 at 2:[address] Kate with any postoperative questions or concerns cell phone number [phone] Discharge Attestations Time Spent in Discharge Care*: greater than 30 min Specific Discharge Activities: educating patient, educating and/or supporting family/caregiver, discussing with pcp/other providers, discussing with porter sample case/social workers/dc planners, documenting/other paperwork and evaluating patient/reviewing data Status at Discharge: Cognitive status at discharge: cognitively intact , Behavioral status at discharge: cooperative , Functional status at discharge: wheelchair bound , Overall status at discharge: patient is back to baseline Quality Metrics Clinical Quality Measures [ No reported AMI, CVA or VTE this stay] Coding Level of Care Code 95567 Total time (in minutes) for Discharge: 60 Diagnoses ESRD (end stage renal disease) N18.6 Chronic ulcer of great toe of left foot with fat layer exposed L97.522 Cellulitis of left foot L03.116 Peripheral arterial disease I73.9 Status post amputation Z89.9 Hypotension I95.9 Atrial fibrillation I48.91
--- NOTE | 2022-08-26 10:57 | PC.SOCIAL ---
IMM Update pg 2 of IMM updated and reviewed w/ patient. Copy provided and Copy in chart dated, and initialed.
[2022-08-26 11:31] LABS: Glucose Point of Care 275 mg/dL (70-110)
[2022-08-26 12:00] VITALS: PULSE 107; RESP 15; O2SAT 95
--- NOTE | 2022-08-26 14:50 | PC.NURSE ---
Nystatin; Pt is to continue at home Nystatin po qid daily x 7 days while on antibiotics. per dr Jeannie Atkinson instructions.
[2022-08-26 15:46] VITALS: PULSE 107; RESP 15; O2SAT 95
== END 2022-08-26 15:47 | disposition home health service (06) | DRG 255 ==
LOC: ER 18:19 → MEDSURG 19:02
PROVIDERS: Hospitalist; Podiatrist Foot & Ankle Surgery; Admitting Provider Internal Medicine; Emergency Provider Family Medicine; PCP Family Medicine; Visit Provider Student in an Organized Health Care Education/Training Program
PROC: 0QBR0ZZ Excision of Left Toe Phalanx, Open Approach (ICD-10-PCS; principal; 2022-08-24 08:00)
PROC: 0Y6Q0Z0 Detachment at Left 1st Toe, Complete, Open Approach (ICD-10-PCS; principal; 2022-08-25 12:00)
DX: E11.51 Type 2 diabetes mellitus with diabetic peripheral angiopathy without gangrene (principal); N18.6 End stage renal disease; E87.1 Hypo-osmolality and hyponatremia; L03.116 Cellulitis of left lower limb; Z68.41 Body mass index [BMI] 40.0-44.9, adult; M86.172 Other acute osteomyelitis, left ankle and foot; E11.69 Type 2 diabetes mellitus with other specified complication; E11.621 Type 2 diabetes mellitus with foot ulcer; E11.22 Type 2 diabetes mellitus with diabetic chronic kidney disease; Z99.2 Dependence on renal dialysis; L97.522 Non-pressure chronic ulcer of other part of left foot with fat layer exposed; L97.524 Non-pressure chronic ulcer of other part of left foot with necrosis of bone; I48.91 Unspecified atrial fibrillation; B96.1 Klebsiella pneumoniae [K. pneumoniae] as the cause of diseases classified elsewhere; B96.4 Proteus (mirabilis) (morganii) as the cause of diseases classified elsewhere; Z79.4 Long term (current) use of insulin; Z79.82 Long term (current) use of aspirin; E66.01 Morbid (severe) obesity due to excess calories; Z87.442 Personal history of urinary calculi; Z87.440 Personal history of urinary (tract) infections; Z95.2 Presence of prosthetic heart valve; Z87.891 Personal history of nicotine dependence; D63.1 Anemia in chronic kidney disease; E87.6 Hypokalemia; I95.9 Hypotension, unspecified
CPT/HCPCS: 12345; 36415; 36416; 73630; 75635; 80048; 80053; 80061; 80202; 82607; 82746; 82962; 83036; 83540; 83550; 83605; 84443; 85007; 85025; 85651; 86140; 87040; 87070; 87075; 87077; 87186; 87205; 87641; 88305; 88311; 93005; 93922; 96365; 96372; 96375; 99285; J1644; J1815; J2185; J2250; J2370; J2704; J3010; J3370; J3490; J7030; J7050; Q3014; Q9967

== ENCOUNTER → 2022-09-03 14:37 | Outpatient (BNVA) | payer MEDICARE, OTHER, SELFPAY | PROVIDERS: PCP Family Medicine; Visit Provider Podiatrist Foot & Ankle Surgery | DX: I73.9 Peripheral vascular disease, unspecified (principal); E11.42 Type 2 diabetes mellitus with diabetic polyneuropathy; E11.621 Type 2 diabetes mellitus with foot ulcer; L97.524 Non-pressure chronic ulcer of other part of left foot with necrosis of bone; Z89.412 Acquired absence of left great toe; Z79.4 Long term (current) use of insulin | CPT/HCPCS: 11044; 99024; 99213 ==

== ENCOUNTER → 2022-09-16 09:34 | Outpatient (BNVA) | payer MEDICARE, OTHER, SELFPAY | PROVIDERS: PCP Family Medicine; Visit Provider Podiatrist Foot & Ankle Surgery | DX: L97.524 Non-pressure chronic ulcer of other part of left foot with necrosis of bone (principal); E11.621 Type 2 diabetes mellitus with foot ulcer; E11.42 Type 2 diabetes mellitus with diabetic polyneuropathy; Z89.412 Acquired absence of left great toe; Z79.4 Long term (current) use of insulin | CPT/HCPCS: 87070; 87075; 87205; 99214 ==

== ENCOUNTER → 2022-09-25 13:56 | Outpatient (BNVA) | payer MEDICARE, OTHER, SELFPAY | PROVIDERS: PCP Family Medicine; Visit Provider Podiatrist Foot & Ankle Surgery | DX: E11.42 Type 2 diabetes mellitus with diabetic polyneuropathy (principal); L97.524 Non-pressure chronic ulcer of other part of left foot with necrosis of bone; Z89.412 Acquired absence of left great toe; E11.621 Type 2 diabetes mellitus with foot ulcer; Z79.4 Long term (current) use of insulin | CPT/HCPCS: 99024; 99214 ==

== ENCOUNTER → 2022-10-02 13:20 | Outpatient (BNVA) | payer MEDICARE, OTHER, SELFPAY | PROVIDERS: PCP Family Medicine; Visit Provider Podiatrist Foot & Ankle Surgery | DX: Z98.890 Other specified postprocedural states (principal); E11.621 Type 2 diabetes mellitus with foot ulcer; L97.524 Non-pressure chronic ulcer of other part of left foot with necrosis of bone; Z79.4 Long term (current) use of insulin; E11.42 Type 2 diabetes mellitus with diabetic polyneuropathy; Z89.412 Acquired absence of left great toe | CPT/HCPCS: 99214 ==